=== PATIENT | male | born 1940 | race African-American/Black ===

== ENCOUNTER 2017-06-06 12:51 | Inpatient (IN) | payer MEDICAID, MEDICARE ==
[~2017-06-06] VITALS: Ht 185.4 cm; Wt 86.2 kg
[2017-06-06 13:04] VITALS: BP 125/74
[2017-06-06] MEDS ORDERED: MULTIVITAMINS1 EAC2 ORAL (13:07)
[2017-06-06] MEDS ORDERED: Sodium Chloride 500ML 500 ML IV ONE (13:15)
[2017-06-06 13:39] LABS: BASOPHILS % (AUTO) 0.6 % (0.0-2.0); EOSINOPHILS % (AUTO) 0.1 % (0.0-3.0); HEMATOCRIT 34.2 % (42.0-52.0); HEMOGLOBIN 11.1 G/DL (14.2-18.0); LYMPHOCYTES % (AUTO) 8.4 % (20.0-45.0); MEAN CORPUSCULAR VOLUME 85 FL (80-99); MONOCYTES % (AUTO) 8.2 % (1.0-10.0); NEUTROPHILS % (AUTO) 82.6 % (45.0-75.0); PLATELET COUNT 274 K/UL (150-450); RED BLOOD COUNT 4.05 M/UL (4.70-6.10); RED CELL DISTRIBUTION WIDTH 12.9 % (11.6-14.8); WHITE BLOOD COUNT 16.9 K/UL (4.8-10.8)
[2017-06-06 13:48] LABS: INR 1.1 (0.9-1.1)
[2017-06-06 13:54] LABS: ANION GAP 15 mmol/L (5-15); BLOOD UREA NITROGEN 159 mg/dL (7-18); CALCIUM 8.8 MG/DL (8.5-10.1); CARBON DIOXIDE 19 MMOL/L (21-32); CHLORIDE 101 MMOL/L (98-107); CREATININE 10.4 MG/DL (0.55-1.30); POTASSIUM 4.8 MMOL/L (3.5-5.1); SODIUM 135 MMOL/L (136-145)
[2017-06-06 14:06] LABS: ALANINE AMINOTRANSFERASE 38 U/L (12-78); ALBUMIN 2.5 G/DL (3.4-5.0); ALBUMIN/GLOBULIN RATIO 0.5 (1.0-2.7); ALKALINE PHOSPHATASE 78 U/L (46-116); ASPARTATE AMINO TRANSFERASE 24 U/L (15-37); BILIRUBIN,TOTAL 0.4 MG/DL (0.2-1.0); CKMB 4.9 NG/ML (0.0-3.6); CREATINE KINASE 48 U/L (26-308)
[2017-06-06 14:30] VITALS: BP 137/71
--- NOTE | 2017-06-06 15:13 | Emergency Room Report ---
History of Present Illness General Chief Complaint: Nosebleed Source: Medical Record Present Illness HPI 76-year-old male presents ED for evaluation. Patient [facility] from shelter facility with 2 episodes of epistaxis since yesterday. Patient states he gets "blood thinner injections". Denies any cough. Denies any fevers or chills. Denies any pain. No other aggravating relieving factors. Denies any other associated symptoms Allergies: Coded Allergies: No Known Allergies (Unverified , 06/06/17) Patient History Past Medical History: HTN Past Surgical History: none Pertinent Family History: none Social History: Denies: smoking, alcohol use, drug use Immunizations: UTD Reviewed Nursing Documentation: PMH: Agreed, PSxH: Agreed Nursing Documentation-PMH Past Medical History: No History, Except For Hx Hypertension: Yes Review of Systems All Other Systems: negative except mentioned in HPI Physical Exam Vital Signs Date Time Temp Pulse Resp B/P (MAP) Pulse Ox O2 Delivery O2 Flow Rate FiO2 06/06/17 12:57 98.4 87 16 129/74 98 Room Air Sp02 EP Interpretation: reviewed, normal General Appearance: no apparent distress, alert, GCS 15, non-toxic Head: normocephalic Eyes: bilateral eye normal inspection, bilateral eye PERRL ENT: hearing grossly normal, normal pharynx, no angioedema, normal voice, other - dried blood in nares Neck: normal inspection Respiratory: chest non-tender, lungs clear, normal breath sounds, speaking full sentences Cardiovascular #1: regular rate, rhythm, no edema Gastrointestinal: normal inspection Rectal: deferred Genitourinary: no CVA tenderness Musculoskeletal: normal inspection Neurologic: alert, oriented x3, responsive, motor strength/tone normal, sensory intact, speech normal Psychiatric: normal inspection Skin: normal inspection Lymphatic: normal inspection Medical Decision Making Diagnostic Impression: Primary Impression: Epistaxis Additional Impressions: Acute on chronic kidney failure Qualified Codes: N17.9 - Acute kidney failure, unspecified; N18.9 - Chronic kidney disease, unspecified Elevated troponin ER Course 81-year-old female presents to ED with epistaxis. no active bleeding Differential-anterior epistaxis, posterior epistaxis, coagulopathy Patient placed on stretcher. After initial history, physical exam reveals elderly male in no acute distress. There is no active bleeding at this time. Dried blood noted in both naris Lungs clear. Patient is on blood thinners therefore labs drawn Labs-no leukocytosis, hemoglobin/hematocrit stable, BUN/Cr elevated, coags normal, trop 1.168 Reviewed labs from senior living. In April his creatinine was lower. It appears that they were trending the troponin which was elevated but is higher today Patient denies any chest pain. EKG shows no acute ischemic changes Chest x-ray shows no acute process, cardiomegaly Patient will be admitted to Dr. Bull as per insurance Diagnoses-epistaxis, acute on chronic kidney injury, elevated troponin admitted to telemetry in serious condition Labs Test 06/06/17 13:20 White Blood Count 16.9 K/UL (4.8-10.8) Red Blood Count 4.05 M/UL (4.70-6.10) Hemoglobin 11.1 G/DL (14.2-18.0) Hematocrit 34.2 % (42.0-52.0) Mean Corpuscular Volume 85 FL (80-99) Mean Corpuscular Hemoglobin 27.3 PG (27.0-31.0) Mean Corpuscular Hemoglobin Concent 32.3 G/DL (32.0-36.0) Red Cell Distribution Width 12.9 % (11.6-14.8) Platelet Count 274 K/UL (150-450) Mean Platelet Volume 6.0 FL (6.5-10.1) Neutrophils (%) (Auto) 82.6 % (45.0-75.0) Lymphocytes (%) (Auto) 8.4 % (20.0-45.0) Monocytes (%) (Auto) 8.2 % (1.0-10.0) Eosinophils (%) (Auto) 0.1 % (0.0-3.0) Basophils (%) (Auto) 0.6 % (0.0-2.0) Prothrombin Time 12.0 SEC (9.30-11.50) Prothromb Time International Ratio 1.1 (0.9-1.1) Activated Partial Thromboplast Time 32 SEC (23-33) Sodium Level 135 MMOL/L (136-145) Potassium Level 4.8 MMOL/L (3.5-5.1) Chloride Level 101 MMOL/L (98-107) Carbon Dioxide Level 19 MMOL/L (21-32) Anion Gap 15 mmol/L (5-15) Blood Urea Nitrogen 159 mg/dL (7-18) Creatinine 10.4 MG/DL (0.55-1.30) Estimat Glomerular Filtration Rate mL/min (>60) Glucose Level 196 MG/DL (74-106) Calcium Level 8.8 MG/DL (8.5-10.1) Total Bilirubin 0.4 MG/DL (0.2-1.0) Aspartate Amino Transf (AST/SGOT) 24 U/L (15-37) Alanine Aminotransferase (ALT/SGPT) 38 U/L (12-78) Alkaline Phosphatase 78 U/L (46-116) Total Creatine Kinase 48 U/L (26-308) Creatine Kinase MB 4.9 NG/ML (0.0-3.6) Creatine Kinase MB Relative Index 10.2 Troponin I 1.168 ng/mL (0.000-0.056) Pro-B-Type Natriuretic Peptide 1448 pg/mL (0-125) Total Protein 7.6 G/DL (6.4-8.2) Albumin 2.5 G/DL (3.4-5.0) Globulin 5.1 g/dL Albumin/Globulin Ratio 0.5 (1.0-2.7) EKG Diagnostic Results Rate: normal Rhythm: NSR ST Segments: no acute changes ASA given to the pt in ED: No - patient having epistaxis. no chest pain Rhythm Strip Diag. Results EP Interpretation: yes Rhythm: NSR, no PVC's, no ectopy Chest X-Ray Diagnostic Results Chest X-Ray Diagnostic Results : Chest X-Ray Ordered: Yes # of Views/Limited/Complete: 1 View Indication: Other EP Interpretation: Yes Interpretation: no consolidation, no effusion, no pneumothorax, no acute cardiopulmonary disease Impression: Other - cardiomegaly. chf Electronically Signed by: Electronically signed by Angel Best MD Last Vital Signs Date Time Temp Pulse Resp B/P (MAP) Pulse Ox O2 Delivery O2 Flow Rate FiO2 06/06/17 14:30 97.9 74 19 137/71 95 Room Air Status: improved Disposition: ADMITTED INPATIENT Condition: Serious Referrals: Jesús Franklin MD (PCP) ANGEL BEST M.D. Jun 06, 2017 15:13
[2017-06-06] MEDS ORDERED: PLAVIX75 MG ORAL (17:08)
[2017-06-06] MEDS ORDERED: COREG3.125 MG ORAL (17:08)
[2017-06-06] MEDS ORDERED: ATORVASTATIN CA40 MG ORAL (17:08)
[2017-06-06] MEDS ORDERED: TAMSULOSIN HCL0.4 MG ORAL (17:08)
[2017-06-06] MEDS ORDERED: HYDRALAZINE HCL25 M1 ORAL (17:08)
--- NOTE | 2017-06-06 17:24 | Diagnostic Imaging Report ---
Indication: Reason For Exam: COUGH Technique: One view of the chest Comparison: none Findings: The heart is mildly enlarged. There is equivocal mild interstitial congestion, most notably on the left. The pleural spaces are clear. The aorta is tortuous and calcified Impression: Mild cardiomegaly. Equivocal mild interstitial congestion
[2017-06-06 20:00] VITALS: BP 130/69
[2017-06-06] MEDS: Tamsulosin 0.4mg cap ORAL SCH (20:44)
[2017-06-06] MEDS: HydrALAZINE 25mg tab ORAL SCH (21:13)
[2017-06-07] VITALS: BP 123/64
[2017-06-07 04:00] VITALS: BP 135/64
[2017-06-07] MEDS: HydrALAZINE 25mg tab ORAL SCH ×3 (06:04→21:48)
[2017-06-07 07:47] VITALS: BP 128/67
[2017-06-07 11:51] VITALS: BP 136/72
--- NOTE | 2017-06-07 11:52 | Diagnostic Imaging Report ---
Indication: Abnormal renal function tests Technique: Grayscale and duplex images of the kidneys, retroperitoneum, and bladder were obtained. Comparison: none Findings: Right kidney measures 11.4 cm in length. Left kidney measures 12.4 cm in length. Both kidneys demonstrate normal echogenicity. There is bilateral mild hydronephrosis. There are bilateral small renal cysts. No focal abnormality. Normal inferior vena cava. Bladder is distended, calculated prevoid volume 715 mL, postvoid volume 766 mL. Impression: Markedly distended bladder. Patient essentially unable to void Bilateral mild hydronephrosis, etiology not definitely demonstrated but quite possibly related to the above Incidental findings small bilateral renal cysts. This agrees with the preliminary interpretation provided overnight by [facility].
--- NOTE | 2017-06-07 14:01 | Nephrology Progress Note ---
Assessment/Plan Problem List: (1) Bilateral hydronephrosis (2) Renal cyst (3) Acute renal failure (4) Congestive heart failure (5) Urinary retention due to benign prostatic hyperplasia (6) HLD (hyperlipidemia) (7) HTN (hypertension) (8) Epistaxis (9) Elevated troponin (10) Acute on chronic kidney failure Plan H&P dictated - [id number] Subjective Constitutional: Denies: no symptoms, chills, diaphoresis, fever, malaise, weakness, other HEENT: Denies: no symptoms, eye pain, blurred vision, tearing, double vision, ear pain, ear discharge, nose pain, nose congestion, throat pain, throat swelling, mouth pain, mouth swelling, other Genitourinary: Reports: pain, other - retention Neurologic/Psychiatric: Denies: no symptoms, anxiety, depressed, emotional problems, headache, numbness, paresthesia, pre-existing deficit, seizure, tingling, tremors, weakness, other Objective Objective Last 24 Hour Vital Signs Date Time Temp Pulse Resp B/P (MAP) Pulse Ox O2 Delivery O2 Flow Rate FiO2 06/07/17 11:51 97.3 79 18 136/72 97 Nasal Cannula 2.0 06/07/17 07:57 85 128/67 06/07/17 07:47 97.7 85 18 128/67 97 Room Air 06/07/17 07:43 84 06/07/17 06:04 122/51 06/07/17 04:00 88 06/07/17 04:00 98.2 84 18 135/64 99 Nasal Cannula 06/07/17 00:00 99 06/07/17 00:00 99.9 90 26 123/64 93 Room Air 06/06/17 21:13 138/72 06/06/17 20:00 96 06/06/17 20:00 98.1 91 20 130/69 98 Room Air 06/06/17 16:48 84 06/06/17 15:00 16 137/91 96 Room Air 06/06/17 14:30 97.9 74 19 137/71 95 Room Air Intake and Output 06/06/17 06/07/17 19:00 07:00 Intake Total 740 ml 360 ml Output Total 400 ml Balance 740 ml -40 ml Intake Oral 240 ml 360 ml IV Total 500 ml Output Urine Total 400 ml # Voids 4 Height (Feet): 6 Height (Inches): 1.00 Weight (Pounds): 190 General Appearance: moderate distress EENT: normal ENT inspection Neck: normal alignment Cardiovascular: normal rate, regular rhythm, no JVD Respiratory/Chest: lungs clear, normal breath sounds Abdomen: soft, tender, hernia - left lower quadrant Genitourinary/Rectal: other - urinary retention Extremities: non-tender Neurologic: alert, oriented x 3, responsive, normal mood/affect Nathaly Smalls N.P. Jun 07, 2017 14:01
--- NOTE | 2017-06-07 14:18 | General Progress Note ---
Progress Note Progress Note ENT Initial consult Pt seen and evaluated Note dictated # [id number] No longer bleeding Antibiotic ointment to nose BID x 5 days-discussed with nurse. MARY JANE WILSON Jun 07, 2017 14:18
--- NOTE | 2017-06-07 14:21 | Infectious Diseases Prog Note ---
Assessment/Plan Problems: (1) Sepsis Assessment & Plan: with leukocytosis , due to the above, will send blood culture and start unasyn empirically (2) Epistaxis Assessment & Plan: due to anticoagulation, ENT is following, need nasal packing , will cover empirically with Unasyn (3) Elevated troponin Assessment & Plan: rule out ACS , recommend cardiology eval (4) Bilateral hydronephrosis Assessment & Plan: rule out prostate enlargement , recommend urology eval (5) Acute renal failure Assessment & Plan: due to the above, continue hydration, monitor renal function , nephrology is following Subjective Allergies: Coded Allergies: No Known Allergies (Unverified , 06/06/17) Objective Vital Signs Last 24 Hour Vital Signs Date Time Temp Pulse Resp B/P (MAP) Pulse Ox O2 Delivery O2 Flow Rate FiO2 06/07/17 11:51 97.3 79 18 136/72 97 Nasal Cannula 2.0 06/07/17 07:57 85 128/67 06/07/17 07:47 97.7 85 18 128/67 97 Room Air 06/07/17 07:43 84 06/07/17 06:04 122/51 06/07/17 04:00 88 06/07/17 04:00 98.2 84 18 135/64 99 Nasal Cannula 06/07/17 00:00 99 06/07/17 00:00 99.9 90 26 123/64 93 Room Air 06/06/17 21:13 138/72 06/06/17 20:00 96 06/06/17 20:00 98.1 91 20 130/69 98 Room Air 06/06/17 16:48 84 06/06/17 15:00 16 137/91 96 Room Air 06/06/17 14:30 97.9 74 19 137/71 95 Room Air Height (Feet): 6 Height (Inches): 1.00 Weight (Pounds): 190 Current Medications Medications (Trade) Dose Ordered Sig/Maureen Route PRN Reason Start Time Stop Time Status Last Admin Dose Admin Acetaminophen (Tylenol) 650 mg Q4H PRN ORAL Mild Pain/Temp > 100.5 06/06/17 17:45 07/06/17 17:44 Atorvastatin Calcium (Lipitor) 40 mg BEDTIME ORAL 06/06/17 21:00 07/06/17 20:59 12/19/17 20:44 Carvedilol (Coreg) 3.125 mg DAILY ORAL 06/07/17 09:00 07/07/17 08:59 06/07/17 07:57 Hydralazine HCl (Apresoline) 25 mg Q8HR ORAL 06/06/17 22:00 07/06/17 21:59 06/07/17 06:04 Tamsulosin HCl (Flomax) 0.4 mg BEDTIME ORAL 06/06/17 21:00 07/06/17 20:59 06/06/17 20:44 Molly Hernadez M.D. Jun 07, 2017 14:20
[2017-06-07] MEDS ORDERED: Eliquis 2.5mg tablet ORAL SCH (15:00)
--- NOTE | 2017-06-07 16:15 | Consultation ---
DATE OF CONSULTATION: 06/07/2017 PULMONARY CONSULTATION CONSULTING PHYSICIAN: Blair Delacruz M.D. HISTORY OF PRESENT ILLNESS: This is a 76-year-old long term resident, who was brought to the hospital with epistaxis. The patient states he has been getting anticoagulation as well. The patient denies any cough, fever, or chills. Denies any shortness of breath or pain. PAST MEDICAL HISTORY: Hypertension. PAST SURGICAL HISTORY: None reported. MEDICATIONS: List of home medications include Coreg, hydralazine, Flomax, Lipitor, and Tylenol. ALLERGIES: None reported. REVIEW OF SYSTEMS: Denies any headaches, hematemesis, melena, hematochezia, night sweats, or weight loss. PHYSICAL EXAMINATION: GENERAL: A [id number]. HEENT: Unremarkable. CHEST: Clear breath sounds bilaterally. HEART: Normal heart sounds. ABDOMEN: Soft. EXTREMITIES: No edema noted. LABORATORY AND DIAGNOSTIC DATA: Labs showed normal coags. White count 16.9 and hemoglobin 11. Chemistries are normal except for a creatinine of 10.4 and INR 1.1. The patient underwent imaging studies including a chest x-ray, which showed evidence of cardiomegaly and vascular congestion. IMPRESSION: 1. Pulmonary edema. 2. Vascular congestion. 3. Hypoxemia requiring nasal oxygen. 4. Epistaxis. DISCUSSION: Admitted to the hospital. The patient has vascular congestion, I suspect. He will benefit from diuresis versus dialysis. We will defer to Nephrology. Supplement oxygen via nasal cannula to counteract hypoxemia. We will continue to follow as night cleaner. Blair Delacruz M.D. DR: ELVI JOB#: [id number] CC:
[2017-06-07] MEDS: Ampicillin/Sulbactam Sod 3 GM in NS 110 ML IVPB SCH (16:17)
[2017-06-07] MEDS: Neosporin Oint 15gm TOPIC SCH (16:17)
[2017-06-07] MEDS ORDERED: Warfarin Sodium 5mg ORAL SCH (17:00)
[2017-06-07 17:01] VITALS: BP 137/86
--- NOTE | 2017-06-07 17:01 | Cardiology Report ---
APPROVED REPORT EKG Measurement Heart [id number] OR [id number] Sinus rhythm with premature atrial complexes Left axis deviation Minimal voltage criteria for LVH, may be normal variant Abnormal ECG
--- NOTE | 2017-06-07 17:53 | Anethesia Preoperative Eval ---
Anesthesia Pre-op PMH/ROS General Date of Evaluation: Jun 07, 2017 Time of Evaluation: 17:29 Anesthesiologist: Tere ASA Score: ASA 3 Mallampati Score Class I : Soft palate, uvula, fauces, pillars visible Class II: Soft palate, uvula, fauces visible Class III: Soft palate, base of uvula visible Class IV: Only hard plate visible Mallampati Classification: Class II Surgeon: Fifi Diagnosis: Sepsis, BPH Surgical Procedure: Cystoscopy, Suprapubic Catheter Anesthesia History: none Family History: no anesthesia problems Allergies: Coded Allergies: No Known Allergies (Unverified , 06/06/17) Medications: see eMAR Past Medical History Cardiovascular: Reports: HTN, [place] - Elevated Troponins, other - CHF, HL Gastrointestinal/Genitourinary: Reports: other - BPH, ARF, CRF, Hydronephrosis Hematology/Immune: Reports: other - Sepsis Anesthesia Pre-op Phys. Exam Physician Exam Last Vital Signs Date Time Temp Pulse Resp B/P (MAP) Pulse Ox O2 Delivery O2 Flow Rate FiO2 06/07/17 17:01 97.2 82 18 137/86 97 Nasal Cannula 2.0 Constitutional: NAD Neurologic: CN 2-12 intact Cardiovascular: RRR Respiratory: CTA Gastrointestinal: S/NT/ND Airway Exam Mallampati Score: Class II MO: limited ROM: limited Teeth: missing, intact Anesthesia Pre-op A/P Risk Assessment & Plan Assessment: ASA 3 Plan: GA Status Change Before Surgery: No Pre-Antibiotics Drug: Christoph Jackson MD Jun 07, 2017 17:53
--- NOTE | 2017-06-07 18:30 | Wound Care Consultation ---
Wound Assessment Wound Assessment : Wound Number: 1 Wound Present on Admission: Yes New Wound: No Status Change of Wound: No Wound Location Body Site Modif: left Wound Location Body Site: buttocks Wound Type: pressure ulcer Antonia Test: Does not Antonia Pressure Ulcer Stage: II Wound Thickness: Partial Thickness Wound Length: 3.0 Wound Width: 5.0 Wound Depth: 0.1 Percent of Wound [place]/Red: 100 Wound Drainage Description: Serosanguineous Wound Drainage Amount: Scant Wound Drainage Odor: None/Absent Tissue Surrounding Wound: Erythemic Wound General Appearance: Reddened, Draining Wound Comment #1 Left buttock open blister stage II pressure ulcer #2 Left and right foot dry flaky skin Recommendation -Local wound care per protocol -Keep clean and dry -Turn and reposition -Optimize nutrition -Offload both heels -Heel protector on both heels -Low air loss SPR mattress -Assess and f/u accordingly for any changes ELLEN MYERS RN Jun 07, 2017 18:29
--- NOTE | 2017-06-07 18:36 | Consultation ---
History of Present Illness General Date patient seen: Jun 07, 2017 Time patient seen: 12:55 Chief Complaint: Nosebleed Referring physician: Halie Reason for Consultation: bilateral hydro Present Illness HPI 76 yo male admitted for nose bleed workup as well as acute kidney injury. Renal ultrasound showed mild bilateral hydro, poor emptying of bladder. Patient states he voids fine, but no documented voids since admission to floor. Not in distress. Takes plavix for cardiac reasons? Allergies: Coded Allergies: No Known Allergies (Unverified , 06/06/17) Medication History Scheduled Atorvastatin Calcium* (Atorvastatin Calcium*), 40 MG ORAL BEDTIME, (Reported) Carvedilol (Coreg), 3.125 MG ORAL DAILY, (Reported) Clopidogrel Bisulfate* (Plavix*), 75 MG ORAL DAILY, (Reported) Hydralazine Hcl* (Hydralazine Hcl*), 25 MG ORAL EVERY 8 HOURS, (Reported) Multivitamins* (Multivitamins*), 1 TAB ORAL DAILY, (Reported) Tamsulosin Hcl (Tamsulosin Hcl*), 0.4 MG ORAL BEDTIME, (Reported) Patient History Limited by: age, medical condition History Provided By: Medical Record Healthcare decision maker Resuscitation status Advanced Directive on File Past Medical/Surgical History Past Medical/Surgical History: (1) HTN (hypertension) (2) HLD (hyperlipidemia) (3) Acute renal failure Review of Systems All Other Systems: negative except mentioned in HPI Physical Exam General Appearance: alert Neck: supple Abdomen: non tender, soft Genitourinary/Rectal: normal genital exam Neurologic: alert, oriented x 3 Last 24 Hour Vital Signs Date Time Temp Pulse Resp B/P (MAP) Pulse Ox O2 Delivery O2 Flow Rate FiO2 06/07/17 17:01 97.2 82 18 137/86 97 Nasal Cannula 2.0 06/07/17 15:10 75 06/07/17 14:30 136/72 06/07/17 11:51 97.3 79 18 136/72 97 Nasal Cannula 2.0 06/07/17 11:45 77 06/07/17 07:57 85 128/67 06/07/17 07:47 97.7 85 18 128/67 97 Room Air 06/07/17 07:43 84 06/07/17 06:04 122/51 06/07/17 04:00 88 06/07/17 04:00 98.2 84 18 135/64 99 Nasal Cannula 06/07/17 00:00 99 06/07/17 00:00 99.9 90 26 123/64 93 Room Air 06/06/17 21:13 138/72 06/06/17 20:00 96 06/06/17 20:00 98.1 91 20 130/69 98 Room Air Intake and Output 06/06/17 06/07/17 19:00 07:00 Intake Total 740 ml 360 ml Output Total 400 ml Balance 740 ml -40 ml Intake Oral 240 ml 360 ml IV Total 500 ml Output Urine Total 400 ml # Voids 4 Height (Feet): 6 Height (Inches): 1.00 Weight (Pounds): 190 Medications Current Medications Medications (Trade) Dose Ordered Sig/Maureen Route PRN Reason Start Time Stop Time Status Last Admin Dose Admin Acetaminophen (Tylenol) 650 mg Q4H PRN ORAL Mild Pain/Temp > 100.5 06/06/17 17:45 07/06/17 17:44 Ampicillin Sodium/ Sulbactam Sodium 3 gm/Sodium Chloride 110 ml @ 220 mls/hr Q24H IVPB 06/07/17 17:00 06/14/17 16:59 06/07/17 16:17 Atorvastatin Calcium (Lipitor) 40 mg BEDTIME ORAL 06/06/17 21:00 07/06/17 20:59 06/06/17 20:44 Carvedilol (Coreg) 3.125 mg DAILY ORAL 06/07/17 09:00 07/07/17 08:59 06/07/17 07:57 Hydralazine HCl (Apresoline) 25 mg Q8HR ORAL 06/06/17 22:00 07/06/17 21:59 06/07/17 14:30 Neomycin/ Polymyxin/ Bacitracin (Neosporin Oint 15gm) 1 applic TWICE A DAY TOPIC 06/07/17 18:00 06/12/17 09:01 06/07/17 16:17 Tamsulosin HCl (Flomax) 0.4 mg BEDTIME ORAL 06/06/17 21:00 07/06/17 20:59 06/06/17 20:44 Objective Narrative Renal ultrasound: mild bilateral hydro, high PVR Attempted to pass 16 [place] straight, 14 [place] coude and 20 [place] coude, unsuccessfully. URethral trauam resulted in blood from meatus. Given patient still has plavix in system, aborted further intervention. Assessment/Plan Status: stable Assessment/Plan 76 yo male with likely retention mediated renal failure. 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 Patient states he has had allen catheters 7 times in his life. Given patient still has plavix on board, recommend cystoscopy to evaluate and treat potential stricture vs. SP tube placement under anesthesia in controlled environment. Please hold any anti- coagulation till after procedure. 1. NPO p MN 2. or tomorrow for cysto, possible dilation of urethral stricture vs. suprapubic tube placement. Van Calix M.D. Jun 07, 2017 18:36
[2017-06-07 20:00] VITALS: BP 124/73
--- NOTE | 2017-06-07 20:53 | Cardiology Progress Note ---
Assessment/Plan Assessment/Plan The patient is seen and examined, full consult note is dictated. Objective Last 24 Hour Vital Signs Date Time Temp Pulse Resp B/P (MAP) Pulse Ox O2 Delivery O2 Flow Rate FiO2 06/07/17 20:50 Nasal Cannula 2.0 28 06/07/17 20:49 97 Nasal Cannula 2.0 28 06/07/17 17:01 97.2 82 18 137/86 97 Nasal Cannula 2.0 06/07/17 15:10 75 06/07/17 14:30 136/72 06/07/17 11:51 97.3 79 18 136/72 97 Nasal Cannula 2.0 06/07/17 11:45 77 06/07/17 07:57 85 128/67 06/07/17 07:47 97.7 85 18 128/67 97 Room Air 06/07/17 07:43 84 06/07/17 06:04 122/51 06/07/17 04:00 88 06/07/17 04:00 98.2 84 18 135/64 99 Nasal Cannula 06/07/17 00:00 99 06/07/17 00:00 99.9 90 26 123/64 93 Room Air 06/06/17 21:13 138/72 Intake and Output 06/06/17 06/07/17 19:00 07:00 Intake Total 740 ml 360 ml Output Total 400 ml Balance 740 ml -40 ml Intake Oral 240 ml 360 ml IV Total 500 ml Output Urine Total 400 ml # Voids 4 RENETTA WELDON Jun 07, 2017 20:53
[2017-06-07] MEDS: Tamsulosin 0.4mg cap ORAL SCH (21:47)
[2017-06-07] MEDS: Vitamin A&D Oint 2oz Tube TOPIC SCH (21:47)
--- NOTE | 2017-06-07 23:00 | Consultation ---
DATE OF CONSULTATION: INFECTIOUS DISEASE CONSULTATION CONSULTING PHYSICIAN: Molly Hernadez M.D. REQUESTING PHYSICIAN: Moris Bull M.D. REASON FOR CONSULTATION: Sepsis, leukocytosis, possible pyelonephritis due to urinary retention and hydronephrosis, recommendation for antibiotics treatment. HISTORY OF PRESENT ILLNESS: The patient is a 76-year-old male with past medical history of hypertension, urinary retention, and benign prostatic hypertrophy, who required multiple Garcia catheter placement in the past at [facility], presented to the hospital with difficulty urination, urine retention, and nose bleeding. The patient was found to have urine retention with inability to place Garcia catheter in the emergency room. Urologist was consulted for further evaluation. The patient had multiple attempts to place Garcia catheter was unsuccessful. At the bedside, the patient had extensive workup including CBC, which showed significant leukocytosis, possibly due to pyelonephritis and urinary retention. So, Infectious Disease consultation was requested for further evaluation and management of his sepsis and possible pyelonephritis. The patient denied any abdominal pain, suprapubic tenderness, fever, or chills. No nausea, vomiting, or diarrhea. No cough or phlegm. No headache or upper respiratory infection. REVIEW OF SYSTEMS: A 14-point of system reviewed were all negative apart from the one I mentioned above in my H and P. PAST MEDICAL HISTORY: Significant for hypertension, urinary retention, benign prostatic hypertrophy. PAST SURGICAL HISTORY: Negative. MEDICATIONS: He was started on Neosporin ointment topical by ENT. He is also on Tylenol, Lipitor, Flomax, and Coreg. ALLERGIES: No known drug allergy. SOCIAL HISTORY: The [facility]. Denied any drugs, tobacco, or alcohol abuse. FAMILY HISTORY: Noncontributory. PHYSICAL EXAMINATION: VITAL SIGNS: Temperature 97.3, pulse 79, respiration 18, blood pressure 136/72, and saturation 97% on two liters nasal cannula. GENERAL: An elderly male, lying in bed, awake, alert, oriented, not in distress. HEENT: Normocephalic, atraumatic. Pupils are reactive to light. Moist oral mucosa. Nares are dry. No evidence of bleeding actively at this point. Moist oral mucosa. No exudate or thrush. NECK: Supple. No lymphadenopathy. CARDIOVASCULAR: Regular rate and rhythm. No murmur. No gallop. LUNGS: Clear bilaterally. Diminished breathing sounds at the bases. No wheezing or rhonchi. ABDOMEN: Soft, nontender, nondistended. Positive bowel sounds. No hepatosplenomegaly or ascites. No rebound. EXTREMITIES: No edema or cyanosis. SKIN: No rash or hives. LABORATORY AND DIAGNOSTIC DATA: Labs showed white count of 16.9, hemoglobin of 11.1, platelet count of 274, BUN of 159, creatinine of 10.4. AST of 24, ALT of 38. Troponin of 1.168. Imaging, chest x-ray showed mild cardiomegaly, equivocal mild interstitial congestion. Renal ultrasound showed markedly distended bladder, bilateral mild hydronephrosis, etiology not definitely demonstrated, but quiet possibly related to the above. Incidental finding, small bilateral renal cysts. Venous Doppler showed acute DVT in the common femoral vein. ASSESSMENT AND RECOMMENDATION: 1. Sepsis with leukocytosis, suspect due to urinary retention and possible pyelonephritis. We will start the patient empirically on Unasyn IV. Send urine culture and blood culture. 2. Bilateral hydronephrosis due to bladder outlet obstruction, suspect prostate enlargement or urethral stricture. Recommend Garcia placement or nephrostomy pending Urology evaluation to relieve his obstruction and to eliminate the source of infection. 3. Elevated troponin, rule out acute coronary syndrome. Recommend Cardiology evaluation and management. 4. Acute renal failure due to obstructive uropathy. Continue hydration and monitor renal function and urine output. Nephrology team is following. Thank you for the consultation. ID will continue to follow. Molly Hernadez M.D. DR: Arleth JOB#: [id number] CC:
[2017-06-08] VITALS (18 sets, daily range): BP systolic 85–164; BP diastolic 57–95
--- NOTE | 2017-06-08 | Consultation ---
DATE OF CONSULTATION: 06/07/2017 HEAD AND NECK SURGERY/FACIAL PLASTICS REQUESTING PHYSICIAN: Moris Bull M.D. CONSULTING PHYSICIAN: Chris Serra M.D. INDICATION FOR CONSULTATION: This is a 76-year-old male with a bloody nose over the last few days, admitted with elevated troponin and chronic renal failure. I did get a call late yesterday afternoon and when I responded, they said he was not bleeding, I could see him tomorrow, which is today and I am doing that. PAST MEDICAL HISTORY: Significant for congestive heart failure, acute renal failure, renal cyst, hypertension, hyperlipidemia, bilateral hydronephrosis, and urinary retention due to benign prostatic hypertrophy. MEDICATIONS: Include Coumadin, Eliquis, Coreg, Apresoline, Flomax, Lipitor, Tylenol, and levofloxacin. PHYSICAL EXAMINATION: VITAL SIGNS: The patient is 185.42 cm, 86.183 kg, and BMI 25.1 kg/m2. GENERAL: The patient is lying in bed, awake, alert, and stable. Able to move and sit up without difficulty. HEENT: Ears, positive light reflex. Normal canal. Mouth, normal. Nose, he has a nasal cannula in it and some dried scab on the right, but no active bleeding. The patient states he has had no bleeding since yesterday afternoon. NECK: No palpable masses. ASSESSMENT: 1. Epistaxis, controlled. 2. High troponin, workup underway. 3. Acute renal failure. PLAN: Antibiotic ointment to the nose. I discussed this with the nurse twice a day, especially when it is dry outside or using the dried nasal cannula air. Thank you very much for asking my opinion in the care and treatment of this patient. Chris Serra M.D. DR: Guille JOB#: [id number] CC:
--- NOTE | 2017-06-08 01:15 | HX and Phyl Repo 2 Sig ---
DATE OF ADMISSION: 06/06/2017 INTERNAL MEDICINE HISTORY AND PHYSICAL HISTORY OF PRESENT ILLNESS: The patient is a 76-year-old male with a past medical history significant for hypertension, BPH who presented to the emergency room with epistaxis. According to the patient, he has been bleeding for a couple of days. He stated that he asked his brother who came to visit him at home to take him to the emergency room. He stated that two months ago, he was admitted to [facility] for difficulty urination. He stated that he had a Garcia catheter put in and was subsequently discharged. He does not remember if he has seen any urologist or not. Denies chest pain. No nausea. No vomiting. No abdominal pain. He stated that he has had hernia, which causes pain intermittently on the left lower quadrant. PAST MEDICAL HISTORY: Significant for urinary retention, hypertension, and BPH. PAST SURGICAL HISTORY: None. HOME MEDICATIONS: Atorvastatin 40 mg p.o. daily, carvedilol 3.125 mg p.o. daily, Plavix 75 mg p.o. daily, hydralazine 25 mg p.o. q.8 h., multivitamin tablet one p.o. daily, and Flomax 0.4 mg p.o. nightly. ALLERGIES: He has no known allergies. SOCIAL HISTORY: He states that he lives at home. Denies any drug use. No alcohol use and no illicit drug use. REVIEW OF SYSTEMS: Negative except as mentioned in the HPI. PHYSICAL EXAMINATION: GENERAL: This is a 76-year-old male, moderately distressed due to urinary retention. VITAL SIGNS: Blood pressure of 136/72, heart rate is 79, respiratory rate is 18, temperature is 97.3 degrees, O2 saturation is 97% on 2 liters. HEENT: Head is normocephalic and atraumatic with moist mucous membranes. Pupils are equal, round, reactive to light and accommodation. NECK: Supple. No JVD noted. LUNGS: Clear to auscultation bilaterally. No crackles. No wheezing. CARDIOVASCULAR: Regular rate and rhythm. No murmurs. No gallops. ABDOMEN: Soft. Tenderness noted on the left lower quadrant, most likely due to hernia. EXTREMITIES: Dry. No edema. No cyanosis. No clubbing NEUROLOGIC: The patient is awake, alert, and oriented x2 with no focal deficits. LABORATORY DATA: CBC, white count 16.9, hemoglobin 11.1, hematocrit 34.7, and platelet count of 274. BMP, sodium 135, potassium 4.8, chloride 101, bicarbonate 19, BUN 159, creatinine 10.4, and blood glucose of 196. Troponin is elevated at 1.168. BNP 1448. Admission PT 12.0, INR 1.1, and aPTT is 32. RADIOLOGIC FINDING: Renal ultrasound findings, right kidney measures 11.4 cm in length. Left kidney measures 12.4 cm in length. Both kidneys demonstrate normal echogenicity. There is bilateral mild hydronephrosis. There are bilateral small renal cysts. No focal abnormality. Normal inferior vena cava. Bladder is distended. Calculated prevoid volume is 715 mL, postvoid volume 766 mL. Impression, markedly distended bladder. The patient is essentially unable to void. Bilateral mild hydronephrosis, etiology not definitely demonstrated, but quite possibly related to the above. Incidental finding of small bilateral renal cysts. Chest x-ray findings, the heart is mildly enlarged. There is equivocal mild interstitial congestion most notably on the left. The pleural spaces are clear. The aorta is tortuous and calcified. Impression is mild cardiomegaly. Equivocal mild interstitial congestion. ASSESSMENTS: 1. Bilateral hydronephrosis. 2. Elevated troponin. 3. Congestive heart failure. 4. Urinary retention. 5. Hyperlipidemia. 6. Renal cysts. 7. Hypertension. 8. Acute renal failure PLAN: The patient has been seen by Dr. Calix, the urologist, and scheduled for surgery tomorrow. We will follow up postprocedure. Also Dr. More had been notified regarding the findings of . Infectious Disease, Dr. Hernadez, has been notified of this patient as well. Dr. Menchaca is the pneumatic system conveyor operator. We will follow up with recommendations of this consults. We will monitor vitals. Monitor intake and output. Monitor electrolytes and correct as needed. Pain management as needed. We will continue home medications except Plavix. The patient is scheduled for procedure tomorrow. We will monitor the patient's overall response to treatment. Moris Bull M.D. Nathaly Smalls DR: Shirley JOB#: [id number] CC: DONELL
[2017-06-08] MEDS: Oxybutynin 5mg tab ORAL SCH ×4 (05:35→22:22)
[2017-06-08] MEDS: HydrALAZINE 25mg tab ORAL SCH ×3 (05:36→22:21)
[2017-06-08 06:59] LABS: INR 1.2 (0.9-1.1)
[2017-06-08 07:08] LABS: HEMATOCRIT 32.4 % (42.0-52.0); HEMOGLOBIN 10.6 G/DL (14.2-18.0); MEAN CORPUSCULAR VOLUME 86 FL (80-99); PLATELET COUNT 236 K/UL (150-450); RED BLOOD COUNT 3.76 M/UL (4.70-6.10); RED CELL DISTRIBUTION WIDTH 13.3 % (11.6-14.8); WHITE BLOOD COUNT 14.2 K/UL (4.8-10.8)
[2017-06-08 07:14] LABS: ANION GAP 20 mmol/L (5-15); BLOOD UREA NITROGEN 162 mg/dL (7-18); CALCIUM 8.9 MG/DL (8.5-10.1); CARBON DIOXIDE 15 MMOL/L (21-32); CHLORIDE 99 MMOL/L (98-107); CREATININE 10.9 MG/DL (0.55-1.30); POTASSIUM 5.8 MMOL/L (3.5-5.1); SODIUM 134 MMOL/L (136-145)
--- NOTE | 2017-06-08 08:15 | Consultation ---
DATE OF CONSULTATION: 06/07/2017 HEMATOLOGY/ONCOLOGY CONSULTATION CONSULTING PHYSICIAN: Yossi More M.D. REQUESTING PHYSICIAN: Moris Bull M.D. REASON FOR CONSULTATION: Evaluation of DVT. IDENTIFICATION DATA: Dear Dr. Moris Bull: The patient is a pleasant 76-year-old male with a past medical history significant for hyperlipidemia, hypertension, BPH, at this time presents with nasal bleed. Renal ultrasound showed mild bilateral hydronephrosis, poor emptying of the bladder, voiding at this time, has been taking Plavix, which is unknown reason for that. He has been taking anticoagulation as well. Duplex of lower extremity was obtained and the patient noted to have acute thrombus in the common femoral vein on the right leg. Hematology Service consulted for further evaluation and treatment. PAST MEDICAL HISTORY: Hypertension. PAST SURGICAL HISTORY: None noted. MEDICATIONS: Coreg, hydralazine, Flomax, Lipitor, and Tylenol. ALLERGIES: No known drug allergies. REVIEW OF SYSTEMS: CONSTITUTIONAL: No fevers, chills, or night sweats. SKIN: No rashes, bumps, or itching. HEENT: No headache, hearing or vision changes. BREASTS: No lumps, pain, or discharge. PULMONARY: No cough, sputum, or shortness of breath. GASTROINTESTINAL: No nausea, vomiting, or diarrhea. GENITOURINARY: No dysuria, frequency, or urgency. MUSCULOSKELETAL: No joint swelling, muscle pain, or trauma. PHYSICAL EXAMINATION: GENERAL: No acute distress. PULMONARY: Decreased breath sounds. CARDIOVASCULAR: Regular rate. No S3 or S4. ABDOMEN: Soft, nontender, and nondistended. EXTREMITIES: 1+ edema. LABORATORY AND DIAGNOSTIC DATA: WBC 16.9, hemoglobin 11.1, hematocrit 34, and platelet count 274,000. BUN of and creatinine . Troponin 1.16. INR 1.1. ASSESSMENT AND RECOMMENDATIONS: 1. Deep venous thrombosis, which is extensive, of the right lower extremity. At this time, the patient's epistaxis has since resolved. The patient is a dialysis patient. Consider use of apixaban. At this time, I am going to hold Coumadin because of bleeding bleeding noted when the urologist attempted catheter placement. Consider to restart in the next several days. 2. Anemia secondary to hematuria. The patient is to go to the operating room for cystoscopy, possible dilatation, suprapubic tube placement. Consider to start anticoagulation after procedure. 3. History of Garcia catheter . 4. Acute kidney injury, end-stage renal disease, on dialysis. 5. Sepsis. Continue antibiotics with Unasyn. 6. Epistaxis due to anticoagulation. nasal packing in place. 7. Elevated troponin. Cardiology Service to evaluate. I appreciate the consultation. Yossi More M.D. DR: Gaudencio JOB#: [id number] CC:
--- NOTE | 2017-06-08 08:19 | Pulmonology Progress Note ---
Assessment/Plan Assessment/Plan IMPRESSION: 1. Pulmonary edema. 2. Vascular congestion. 3. Hypoxemia requiring nasal oxygen. 4. Epistaxis. DISCUSSION: Continue diuresis versus dialysis. Will will defer to Nephrology. Supplement oxygen via nasal cannula to correct hypoxemia. I will continue to follow as food expeditor. Subjective Interval Events: Doing better Constitutional: Reports: no symptoms HEENT: Repors: no symptoms Respiratory: Reports: no symptoms Cardiovascular: Reports: no symptoms Gastrointestinal/Abdominal: Reports: no symptoms Allergies: Coded Allergies: No Known Allergies (Unverified , 06/06/17) Objective Last 24 Hour Vital Signs Date Time Temp Pulse Resp B/P (MAP) Pulse Ox O2 Delivery O2 Flow Rate FiO2 06/08/17 05:36 127/73 06/08/17 04:00 90 06/08/17 04:00 99.0 87 20 124/73 97 Nasal Cannula 06/08/17 02:12 99.7 06/08/17 00:00 100.9 91 20 148/78 98 Nasal Cannula 06/08/17 00:00 93 06/07/17 21:48 132/78 06/07/17 20:50 Nasal Cannula 2.0 28 06/07/17 20:49 97 Nasal Cannula 2.0 28 06/07/17 20:00 81 06/07/17 20:00 98.2 87 20 124/73 96 Nasal Cannula 06/07/17 17:01 97.2 82 18 137/86 97 Nasal Cannula 2.0 06/07/17 15:10 75 06/07/17 14:30 136/72 06/07/17 11:51 97.3 79 18 136/72 97 Nasal Cannula 2.0 06/07/17 11:45 77 Intake and Output 06/07/17 06/08/17 19:00 07:00 Intake Total 470 ml 100 ml Output Total 75 ml Balance 470 ml 25 ml Intake Oral 360 ml 100 ml IV Total 110 ml Output Urine Total 75 ml # Voids 3 # Bowel Movements 1 General Appearance: no acute distress HEENT: normocephalic Respiratory/Chest: chest wall non-tender, lungs clear Cardiovascular: normal peripheral pulses, normal rate Laboratory Tests 06/07/17 21:38: Troponin I 0.443H 06/08/17 05:40: White Blood Count 14.2H, Red Blood Count 3.76L, Hemoglobin 10.6L, Hematocrit 32.4L, Mean Corpuscular Volume 86, Mean Corpuscular Hemoglobin 28.2, Mean Corpuscular Hemoglobin Concent 32.7, Red Cell Distribution Width 13.3, Platelet Count 236, Mean Platelet Volume 6.7, Neutrophils (%) (Auto) , Lymphocytes (%) ( Auto) , Monocytes (%) (Auto) , Eosinophils (%) (Auto) , Basophils (%) (Auto) , Neutrophils % (Manual) [Pending], Lymphocytes % (Manual) [Pending], Platelet Estimate [Pending], Platelet Morphology [Pending], Prothrombin Time 12.3H, Prothromb Time International Ratio 1.2H, Activated Partial Thromboplast Time 35H , Sodium Level 134L, Potassium Level 5.8H, Chloride Level 99, Carbon Dioxide Level 15L, Anion Gap 20H, Blood Urea Nitrogen 162H, Creatinine 10.9H, Estimat Glomerular Filtration Rate , Glucose Level 164H, Calcium Level 8.9 Current Medications Medications (Trade) Dose Ordered Sig/Maureen Route PRN Reason Start Time Stop Time Status Last Admin Dose Admin Acetaminophen (Tylenol) 650 mg Q4H PRN ORAL Mild Pain/Temp > 100.5 06/06/17 17:45 07/06/17 17:44 06/08/17 01:13 Ampicillin Sodium/ Sulbactam Sodium 3 gm/Sodium Chloride 110 ml @ 220 mls/hr Q24H IVPB 06/07/17 17:00 06/14/17 16:59 06/07/17 16:17 Atorvastatin Calcium (Lipitor) 40 mg BEDTIME ORAL 06/06/17 21:00 07/06/17 20:59 06/07/17 21:47 Carvedilol (Coreg) 3.125 mg DAILY ORAL 06/07/17 09:00 07/07/17 08:59 06/07/17 07:57 Hydralazine HCl (Apresoline) 25 mg Q8HR ORAL 06/06/17 22:00 07/06/17 21:59 06/08/17 05:36 Neomycin/ Polymyxin/ Bacitracin (Neosporin Oint 15gm) 1 applic TWICE A DAY TOPIC 06/07/17 18:00 06/12/17 09:01 06/07/17 16:17 Oxybutynin Chloride (Ditropan) 5 mg Q8HR ORAL 06/08/17 00:00 07/08/17 00:00 06/08/17 05:35 Tamsulosin HCl (Flomax) 0.4 mg BEDTIME ORAL 06/06/17 21:00 07/06/17 20:59 06/07/17 21:47 Vitamin A/Vitamin D (A & D Oint) 1 applic EVERY 12 HOURS TOPIC 06/07/17 21:00 07/07/17 20:59 06/07/17 21:47 Blair Delacruz MD Jun 08, 2017 08:19
[2017-06-08] MEDS: Vitamin A&D Oint 2oz Tube TOPIC SCH ×2 (09:33→22:20)
[2017-06-08] MEDS: Neosporin Oint 15gm TOPIC SCH ×2 (09:33→17:23)
[2017-06-08] MEDS ORDERED: Heparin 2000 units/Ns 1000ml 1,000 ML ONE (10:53)
[2017-06-08] MEDS ORDERED: Heparin Sod 1000 units/ml 10ml ONE (10:53)
[2017-06-08] MEDS ORDERED: Lidocaine 1% Plain 30 ml INJ ONE (10:53)
--- NOTE | 2017-06-08 11:29 | Pre-Procedure Note/Attestation ---
Pre-Procedure Note/Attestation Complete Prior to Procedure Planned Procedure: not applicable Procedure Narrative: Temporary dialysis catheter Indications for Procedure Pre-Operative Diagnosis: renal failure Attestation I attest that I discussed the nature of the procedure; its benefits; risks and complications; and alternatives (and the risks and benefits of such alternatives ), prior to the procedure, with the patient (or the patient's legal representative phlebotomy services). I attest that, if there was a reasonable possibility of needing a blood transfusion, the patient (or the patient's legal representative phlebotomy services) was given the [facility] standardized written summary, pursuant to the [place] Blood Safety Act ([place] Health and Safety Code # 1645, as amended). I attest that I re-evaluated the patient just prior to the surgery and that there has been no change in the patient's H&P, except as documented below: YASSINE MOORE M.D. Jun 08, 2017 11:29
[2017-06-08] MEDS ORDERED: LR 1000ml 1,000 ML IVLG SCH (13:07)
--- NOTE | 2017-06-08 13:07 | Immediate Post-Op Evaluation ---
Immediate Post-Op Evalulation Immediate Post-Op Evalulation Procedure: Cystoscopy Date of Evaluation: Jun 08, 2017 Time of Evaluation: 15:54 IV Fluids: 150 Blood Products: 0 Estimated Blood Loss: min Urinary Output: 0 Blood Pressure Systolic: 129 Blood Pressure Diastolic: 70 Pulse Rate: 77 Respiratory Rate: 16 O2 Sat by Pulse Oximetry: 96 Temperature (Fahrenheit): 97.8 Pain Score (1-10): 0 Nausea: No Vomiting: No Complications 0 Patient Status: awake, reacts, patent, none Hydration Status: adequate Drug: Ancef 2g Given Within 1 Hr of Incision: Yes Time Given: 15:00 RYAN MARTINEZ M.D. Jun 08, 2017 13:07
--- NOTE | 2017-06-08 13:10 | Pre-Procedure Note/Attestation ---
Pre-Procedure Note/Attestation Complete Prior to Procedure Planned Procedure: not applicable Procedure Narrative: cystoscopy, possible stricture dilation, possible SP tube placement Indications for Procedure Pre-Operative Diagnosis: renal failure, urinary retention, bilateral hydronephrosis Attestation I attest that I discussed the nature of the procedure; its benefits; risks and complications; and alternatives (and the risks and benefits of such alternatives ), prior to the procedure, with the patient (or the patient's legal workforce services representative). I attest that, if there was a reasonable possibility of needing a blood transfusion, the patient (or the patient's legal workforce services representative) was given the [facility] standardized written summary, pursuant to the [place] Blood Safety Act ([place] Health and Safety Code # 1645, as amended). I attest that I re-evaluated the patient just prior to the surgery and that there has been no change in the patient's H&P, except as documented below: Patient is high risk due to concurrent cardiac issues. His renal failure is highly likely due to inability to void. To avoid further risk of renal damage we need to proceed as bedside manipulation has failed in getting patient's bladder drained appropriately. Van Calix M.D. Jun 08, 2017 13:10
[2017-06-08] MEDS ORDERED: fentaNYL 100 mcg/2 mL IV PRN (13:15)
[2017-06-08] MEDS ORDERED: DiphenhydrAMINE 50mg/ml Inj IVP PRN (13:15)
[2017-06-08] MEDS ORDERED: Sodium Polystyrene Sulfonate 15gm Powder ORAL ONE (13:30)
[2017-06-08] MEDS ORDERED: Calcium Gluconate 1gm/10ml vial ONE (14:00)
[2017-06-08] MEDS ORDERED: Propofol 200mg/20ml IV ONE (14:00)
[2017-06-08 14:32] LABS: ANION GAP 18 mmol/L (5-15); BLOOD UREA NITROGEN 161 mg/dL (7-18); CALCIUM 8.7 MG/DL (8.5-10.1); CARBON DIOXIDE 17 MMOL/L (21-32); CHLORIDE 100 MMOL/L (98-107); POTASSIUM 5.2 MMOL/L (3.5-5.1); SODIUM 135 MMOL/L (136-145)
[2017-06-08] MEDS ORDERED: Bacitracin Oint 15gm Tube TOPIC ONE (14:39)
--- NOTE | 2017-06-08 14:43 | Infectious Diseases Prog Note ---
Assessment/Plan Problems: (1) Epistaxis Assessment & Plan: due to anticoagulation, ENT is following, will cover empirically with Unasyn (2) Elevated troponin Assessment & Plan: rule out ACS , recommend cardiology eval (3) Sepsis Assessment & Plan: with leukocytosis , due to possible pyelonephritis , await blood and urine culture, continue unasyn empirically (4) Bilateral hydronephrosis Assessment & Plan: rule out prostate enlargement , urology eval is in progress (5) Acute renal failure Assessment & Plan: due to the above, continue hydration, monitor renal function , nephrology is following Subjective Constitutional: Reports: no symptoms HEENT: Reports: no symptoms Respiratory: Reports: no symptoms Breasts: Reports: no symptoms Cardiovascular: Reports: no symptoms Gastrointestinal/Abdominal: Reports: no symptoms Genitourinary: Reports: other - retension Neurologic: Reports: no symptoms Psychiatric: Reports: no symptoms Skin: Reports: no symptoms Endocrine: Reports: no symptoms Hematologic: Reports: no symptoms Musculoskeletal: Reports: no symptoms Allergies: Coded Allergies: No Known Allergies (Unverified , 06/06/17) Objective Vital Signs Last 24 Hour Vital Signs Date Time Temp Pulse Resp B/P (MAP) Pulse Ox O2 Delivery O2 Flow Rate FiO2 06/08/17 11:30 79 18 135/80 100 Nasal Cannula 2.0 06/08/17 11:25 77 18 130/81 99 Nasal Cannula 2.0 06/08/17 11:20 81 24 128/57 100 Nasal Cannula 2.0 06/08/17 10:58 80 17 2.0 06/08/17 09:02 95 136/79 06/08/17 08:00 90 06/08/17 08:00 98.1 95 22 136/79 95 Nasal Cannula 06/08/17 05:36 127/73 06/08/17 04:00 90 06/08/17 04:00 99.0 87 20 124/73 97 Nasal Cannula 06/08/17 02:12 99.7 06/08/17 00:00 100.9 91 20 148/78 98 Nasal Cannula 06/08/17 00:00 93 06/07/17 21:48 132/78 06/07/17 20:50 Nasal Cannula 2.0 28 06/07/17 20:49 97 Nasal Cannula 2.0 06/07/17 20:00 81 06/07/17 20:00 98.2 87 20 124/73 96 Nasal Cannula 06/07/17 17:01 97.2 82 18 137/86 97 Nasal Cannula 2.0 06/07/17 15:10 75 Height (Feet): 6 Height (Inches): 1.00 Weight (Pounds): 190 General Appearance: WD/WN, no acute distress HEENT: normocephalic, atraumatic, anicteric, mucous membranes moist, PERRL Respiratory/Chest: chest wall non-tender, lungs clear, normal breath sounds, no respiratory distress, no accessory muscle use Cardiovascular: normal peripheral pulses, normal rate, regular rhythm, no gallop/murmur, no JVD Abdomen: normal bowel sounds, soft, non tender, no organomegaly, non distended , no mass, no scars Extremities: no cyanosis, no clubbing Skin: no rash, no lesions, no ulcers Neurologic/Psychiatric: alert, oriented x 3 Microbiology Date/Time Source Procedure Growth Status 06/06/17 16:00 Nasal Nares MRSA Culture - Final NO METHICILLIN RESISTANT STAPH AUREUS... Complete 06/07/17 05:30 Buttock Left Gram Stain Pending Resulted 06/07/17 05:30 Buttock Left Wound Culture - Preliminary NO GROWTH AFTER 24 HOURS Resulted Laboratory Tests Test 06/07/17 21:38 06/08/17 05:40 06/08/17 13:50 Troponin I 0.443 ng/mL (0.000-0.056) White Blood Count 14.2 K/UL (4.8-10.8) H Red Blood Count 3.76 M/UL (4.70-6.10) L Hemoglobin 10.6 G/DL (14.2-18.0) L Hematocrit 32.4 % (42.0-52.0) L Mean Corpuscular Volume 86 FL (80-99) Mean Corpuscular Hemoglobin 28.2 PG (27.0-31.0) Mean Corpuscular Hemoglobin Concent 32.7 G/DL (32.0-36.0) Red Cell Distribution Width 13.3 % (11.6-14.8) Platelet Count 236 K/UL (150-450) Mean Platelet Volume 6.7 FL (6.5-10.1) Neutrophils (%) (Auto) % (45.0-75.0) Lymphocytes (%) (Auto) % (20.0-45.0) Monocytes (%) (Auto) % (1.0-10.0) Eosinophils (%) (Auto) % (0.0-3.0) Basophils (%) (Auto) % (0.0-2.0) Differential Total Cells Counted 100 Neutrophils % (Manual) 94 % (45-75) H Lymphocytes % (Manual) 4 % (20-45) L Monocytes % (Manual) 2 % (1-10) Eosinophils % (Manual) 0 % (0-3) Basophils % (Manual) 0 % (0-2) Band Neutrophils 0 % (0-8) Platelet Estimate Adequate Platelet Morphology Normal Hypochromasia 1+ Prothrombin Time 12.3 SEC (9.30-11.50) H Prothromb Time International Ratio 1.2 (0.9-1.1) H Activated Partial Thromboplast Time 35 SEC (23-33) H Sodium Level 134 MMOL/L (136-145) L 135 MMOL/L (136-145) L Potassium Level 5.8 MMOL/L (3.5-5.1) H 5.2 MMOL/L (3.5-5.1) H Chloride Level 99 MMOL/L (98-107) 100 MMOL/L (98-107) Carbon Dioxide Level 15 MMOL/L (21-32) L 17 MMOL/L (21-32) L Anion Gap 20 mmol/L (5-15) H 18 mmol/L (5-15) H Blood Urea Nitrogen 162 mg/dL (7-18) H 161 mg/dL (7-18) H Creatinine 10.9 MG/DL (0.55-1.30) H 12.0 MG/DL (0.55-1.30) H Estimat Glomerular Filtration Rate mL/min (>60) mL/min (>60) Glucose Level 164 MG/DL (74-106) H 216 MG/DL (74-106) H Calcium Level 8.9 MG/DL (8.5-10.1) 8.7 MG/DL (8.5-10.1) Hepatitis B Surface Antigen Pending Hepatitis B Surface Antibody, Quant Pending Hepatitis C Antibody Pending Current Medications Medications (Trade) Dose Ordered Sig/Maureen Route PRN Reason Start Time Stop Time Status Last Admin Dose Admin Acetaminophen (Tylenol) 650 mg Q4H PRN ORAL Mild Pain/Temp > 100.5 06/06/17 17:45 07/06/17 17:44 06/08/17 01:13 Acetaminophen (Tylenol) 650 mg Q4H PRN ORAL Mild Pain (Pain Scale 1-3) 06/08/17 13:15 06/08/17 18:00 Ampicillin Sodium/ Sulbactam Sodium 3 gm/Sodium Chloride 110 ml @ 220 mls/hr Q24H IVPB 06/07/17 17:00 06/14/17 16:59 06/07/17 16:17 Atorvastatin Calcium (Lipitor) 40 mg BEDTIME ORAL 06/06/17 21:00 07/06/17 20:59 06/07/17 21:47 Carvedilol (Coreg) 3.125 mg DAILY ORAL 06/07/17 09:00 07/07/17 08:59 06/08/17 09:02 Diphenhydramine HCl (Benadryl) 25 mg Q15M PRN IVP Itching 06/08/17 13:15 06/08/17 18:00 Fentanyl Citrate (Sublimaze 100 mcg/2 mL) 25 mcg Q10M PRN IV Moderate Pain (Pain Scale 4-6) 06/08/17 13:15 06/08/17 18:00 Hydralazine HCl (Apresoline) 5 mg Q30M PRN IV SBP>160 /DBP>90 06/08/17 13:15 06/08/17 18:00 Hydralazine HCl (Apresoline) 25 mg Q8HR ORAL 06/06/17 22:00 07/06/17 21:59 06/08/17 05:36 Lactated Ringer's 1,000 ml @ 10 mls/hr Q24H IVLG 06/08/17 13:07 06/08/17 15:06 06/08/17 13:49 Neomycin/ Polymyxin/ Bacitracin (Neosporin Oint 15gm) 1 applic TWICE A DAY TOPIC 06/07/17 18:00 06/12/17 09:01 06/08/17 09:33 Ondansetron HCl (Zofran) 4 mg Q1H PRN IVP Nausea & Vomiting 06/08/17 13:15 06/08/17 18:00 Oxybutynin Chloride (Ditropan) 5 mg Q8HR ORAL 06/08/17 00:00 07/08/17 00:00 06/08/17 05:35 Tamsulosin HCl (Flomax) 0.4 mg BEDTIME ORAL 06/06/17 21:00 07/06/17 20:59 06/07/17 21:47 Vitamin A/Vitamin D (A & D Oint) 1 applic EVERY 12 HOURS TOPIC 06/07/17 21:00 07/07/17 20:59 06/08/17 09:33 Molly Hernadez M.D. Jun 08, 2017 14:43
[2017-06-08] MEDS ORDERED: Lidocaine 1% MPF 10mg/ml 5ml ONE (14:45)
[2017-06-08] MEDS ORDERED: Midazolam 2mg/2ml Inj ONE (14:45)
[2017-06-08] MEDS ORDERED: fentaNYL 100 mcg/2 mL IV ONE (14:45)
[2017-06-08] MEDS ORDERED: NS Irrig 2000ml IRRIG ONE (14:45)
[2017-06-08] MEDS ORDERED: Sterile Water For Irrig 2000ml IRRIG ONE ×2 (14:45→15:12)
--- NOTE | 2017-06-08 15:19 | Diagnostic Imaging Report ---
Indication: Renal failure, needs dialysis access Technique: Informed consent obtained prior to commencement of the procedure. Procedure timeout performed. Ultrasound confirms patent compressible right internal jugular vein. Total sterile technique, including sterile probe cover and sterile gel, sterile gloves, hand hygiene, hat, mask, sterile gown, large sterile drape, and preparation with 2% chlorhexidine utilized.Local anesthesia with 1% lidocaine. Under real-time ultrasound guidance, puncture right internal jugular vein using 20-gauge micropuncture needle, passage 0.018 guidewire, insertion 4 Emirati micropuncture introducer, passage 0.035 guidewire, over which was passed serial dilators and then a right transjugular temporally dialysis triple lumen 13 Emir[place] 15 cm catheter, under fluoroscopic supervision. Completion stored digital radiograph obtained, demonstrating catheter tip position at cavoatrial junction The patient tolerated the procedure well, without immediate complication. Fluoroscopy time 0.4 minutes Dose Area Product 13 dGycm2 Impression: Successful placement of right jugular temporary dialysis catheter, as described.
--- NOTE | 2017-06-08 15:30 | Consultation ---
DATE OF CONSULTATION: 06/07/2017 CARDIOLOGY CONSULTATION CONSULTING PHYSICIAN: Bobby Christy M.D. REFERRING PHYSICIAN: Moris Bull M.D. REASON FOR CONSULTATION: Management of elevated troponin level. HISTORY OF PRESENT ILLNESS: The patient is a very unfortunate 76-year-old gentleman, who presents to the emergency department from detention facility after 2 episodes of epistaxis, apparently in the nursing facility. The patient is receiving blood thinner injections. He did not have any chest pain or shortness of breath. In the past, he had been told upon evaluation in the emergency department, he was found to have a BUN of 159 and creatinine 10.4. His troponin I level was also elevated at 1.168. He was admitted to telemetry for further evaluation and management. Cardiology consultation was made at the request of Dr. Bull for assessment of elevation of troponin level. Of note, a 12-lead electrocardiogram in the emergency department had shown a sinus rhythm with no ST and T-wave abnormalities. At the bedside, the patient denies any chest pain or shortness of breath. He is unaware of his renal failure. PAST MEDICAL HISTORY: Hypertension. PAST SURGICAL HISTORY: None. MEDICATIONS: List of medications including, atorvastatin 40 mg p.o. at bedtime, carvedilol 3.125 mg p.o. once daily, Plavix 75 mg p.o. daily, hydralazine 25 mg every 8 hours., multivitamin one tablet p.o. daily, and tamsulosin 0.4 mg p.o. at bedtime. SOCIAL HISTORY: Denies any tobacco, alcohol, or illicit drug use. FAMILY HISTORY: No premature coronary artery disease in first-degree relatives. REVIEW OF SYSTEMS: HEENT: Denies any headache, diplopia, or blurred vision. CONSTITUTIONAL: Complains of generalized weakness, but no fever, chills, or night sweats. HEENT: Nosebleeds a few times. CARDIOVASCULAR: Denies any chest pain, shortness breath, PND, orthopnea, or leg swelling. PULMONARY: Denies any cough, hemoptysis, or wheezing. GASTROINTESTINAL: Any nausea, vomiting, diarrhea, constipation, abdominal pain, or GI bleed. GENITOURINARY: Denies any hematuria, dysuria, incontinence. NEUROLOGY: Denies any motor dysfunction, sensory deficit, or altered speech. PHYSICAL EXAMINATION: VITAL SIGNS: Blood pressure was 129/74, pulse of 87, respirations 16, O2 saturation 98% on room air, and temperature 98.4 degrees Fahrenheit. GENERAL: The patient is a very unfortunate 76-year-old gentleman, in no apparent respiratory distress. HEENT: Atraumatic and normocephalic. Anicteric. Pupils are equal, round, and reactive to light and accommodation. Extraocular muscles intact. There is dried blood in nares. NECK: JVP less than 5 cm. No carotid bruit. Carotid upstrokes 2+ bilaterally. CARDIOVASCULAR: Normal S1, S2. Regular rate and rhythm. No murmurs, gallops, or rubs. PMI is at fourth intercostal space in the midclavicular line. LUNGS: Clear to auscultation bilaterally. ABDOMEN: Soft, nontender, and nondistended. No hepatosplenomegaly. Positive bowel sounds. EXTREMITIES: No evidence of edema, clubbing, or cyanosis. LABORATORY AND DIAGNOSTIC DATA: Laboratory findings, WBC 16.9, hemoglobin of 11.1, hematocrit 34.2, and platelet count 274,000. Sodium is 135, potassium is 4.8, chloride 101, bicarbonate is 19, BUN of 159, creatinine 10.4, and glucose is 196. Calcium is 8.8. Troponin I 1.168. ProBNP was 1448. Chest x-ray shows mild cardiomegaly, equivocal mild interstitial congestion. ASSESSMENT AND PLAN: The patient is a very unfortunate 76-year-old gentleman, seen in Cardiology consultation at the request of Dr. Bull. 1. Elevated troponin I level in this patient, who is asymptomatic. Denying any chest pain or shortness of breath with most likely chronic kidney disease, stage 5 is likely due to troponin leak due to end-stage renal disease. I will obtain another troponin I level to determine the trend of the troponin I. There is no EKG changes. A 2D echocardiography has been ordered and pending results. At this time, there is no plan for cardiac catheterization. The patient should be prepared for hemodialysis. Further therapeutic and diagnostic decision will be based on the results of echocardiography. I will continue to manage the hemodynamics management. 2. History of hypertension. 3. Chronic kidney disease, stage 5. A 2D echocardiography will assess pericardial effusion, which may indicate . 4. History of end-stage renal disease. We will evaluate for presence of a pericardial effusion. I would like to thank, Dr. Bull , for the courtesy of this consultation. Bobby Christy M.D. DR: UMESH JOB#: [id number] CC:
--- NOTE | 2017-06-08 15:57 | Consultation ---
Consult Note Assessment/Plan Consult attempted, but patient is in surgery. Will re-attempt consult at a later time. Thank you Dr Bull. Jose San DPM Jun 08, 2017 15:57
--- NOTE | 2017-06-08 16:05 | Brief Operative Note ---
Immediate Post Operative Note Operative Note Pre-op Diagnosis: renal failure, urinary retention, bilateral hydronephrosis Procedure: cystoscopy, dilation of urethral stricture, clot evacuation, complex catheter placement Post-op Diagnosis: same Post-op Diagnosis: same as pre-op Surgeon: mara Anesthesiologist: lucy Anesthesia: general Specimen: none Complications: none Condition: stable Fluids: 250 mL saline Estimated Blood Loss: minimal Drains: other - [address] allen cath Implant(s) used?: No Van Calix M.D. Jun 08, 2017 16:05
[2017-06-08] MEDS: Ampicillin/Sulbactam Sod 3 GM in NS 110 ML IVPB SCH ×2 (17:22→22:20)
--- NOTE | 2017-06-08 18:08 | General Progress Note ---
Assessment/Plan Assessment/Plan ASSESSMENT AND RECOMMENDATIONS: 1. Deep venous thrombosis, which is extensive, of the right lower extremity. Have started patient on Eliquis 5 mg twice daily 2. Anemia secondary to hematuria. S/p cytoscopy 3. Acute kidney injury, end-stage renal disease, on dialysis. 4. Sepsis. Continue antibiotics with Unasyn. 5. Epistaxis due to anticoagulation. Subjective Allergies: Coded Allergies: No Known Allergies (Unverified , 06/06/17) All Systems: reviewed and negative except above Subjective NAD Objective Last 24 Hour Vital Signs Date Time Temp Pulse Resp B/P (MAP) Pulse Ox O2 Delivery O2 Flow Rate FiO2 06/08/17 17:24 148/81 06/08/17 16:50 99.9 96 19 138/81 95 Nasal Cannula 3.0 06/08/17 16:50 99.9 06/08/17 16:40 97 22 143/79 95 Nasal Cannula 3.0 06/08/17 16:29 96 14 139/86 96 Nasal Cannula 3.0 06/08/17 16:20 94 18 151/87 95 Nasal Cannula 3.0 06/08/17 16:10 89 18 164/76 95 Nasal Cannula 3.0 06/08/17 15:59 95 14 138/77 95 Simple Mask 8.0 06/08/17 15:54 79 20 144/80 96 Simple Mask 8.0 06/08/17 15:51 77 16 96 06/08/17 15:49 97.8 79 20 136/76 96 Simple Mask 8.0 06/08/17 11:30 79 18 135/80 100 Nasal Cannula 2.0 06/08/17 11:25 77 18 130/81 99 Nasal Cannula 2.0 06/08/17 11:20 81 24 128/57 100 Nasal Cannula 2.0 06/08/17 10:58 80 17 2.0 06/08/17 09:02 95 136/79 06/08/17 08:00 90 06/08/17 08:00 98.1 95 22 136/79 95 Nasal Cannula 06/08/17 05:36 127/73 06/08/17 04:00 90 06/08/17 04:00 99.0 87 20 124/73 97 Nasal Cannula 06/08/17 02:12 99.7 06/08/17 00:00 100.9 91 20 148/78 98 Nasal Cannula 06/08/17 00:00 93 06/07/17 21:48 132/78 06/07/17 20:50 Nasal Cannula 2.0 28 06/07/17 20:49 97 Nasal Cannula 2.0 28 06/07/17 20:00 81 06/07/17 20:00 98.2 87 20 124/73 96 Nasal Cannula Intake and Output 06/07/17 06/08/17 19:00 07:00 Intake Total 470 ml 100 ml Output Total 75 ml Balance 470 ml 25 ml Intake Oral 360 ml 100 ml IV Total 110 ml Output Urine Total 75 ml # Voids 3 # Bowel Movements 1 Laboratory Tests 06/07/17 21:38: Troponin I 0.443H 06/08/17 05:40: White Blood Count 14.2H, Red Blood Count 3.76L, Hemoglobin 10.6L, Hematocrit 32.4L, Mean Corpuscular Volume 86, Mean Corpuscular Hemoglobin 28.2, Mean Corpuscular Hemoglobin Concent 32.7, Red Cell Distribution Width 13.3, Platelet Count 236, Mean Platelet Volume 6.7, Neutrophils (%) (Auto) , Lymphocytes (%) ( Auto) , Monocytes (%) (Auto) , Eosinophils (%) (Auto) , Basophils (%) (Auto) , Differential Total Cells Counted 100, Neutrophils % (Manual) 94H, Lymphocytes % (Manual) 4L, Monocytes % (Manual) 2, Eosinophils % (Manual) 0, Basophils % ( Manual) 0, Band Neutrophils 0, Platelet Estimate Adequate, Platelet Morphology Normal, Hypochromasia 1+, Prothrombin Time 12.3H, Prothromb Time International Ratio 1.2H, Activated Partial Thromboplast Time 35H, Sodium Level 134L, Potassium Level 5.8H, Chloride Level 99, Carbon Dioxide Level 15L, Anion Gap 20H , Blood Urea Nitrogen 162H, Creatinine 10.9H, Estimat Glomerular Filtration Rate , Glucose Level 164H, Calcium Level 8.9 06/08/17 13:50: Sodium Level 135L, Potassium Level 5.2H, Chloride Level 100, Carbon Dioxide Level 17L, Anion Gap 18H, Blood Urea Nitrogen 161H, Creatinine 12.0H, Estimat Glomerular Filtration Rate , Glucose Level 216H, Calcium Level 8.7, Hepatitis B Surface Antigen [Pending], Hepatitis B Surface Antibody, Quant [Pending], Hepatitis C Antibody [Pending] Height (Feet): 6 Height (Inches): 1.00 Weight (Pounds): 190 General Appearance: no apparent distress EENT: normal ENT inspection Neck: normal alignment Cardiovascular: regular rhythm Extremities: normal range of motion Yossi More Jun 08, 2017 18:08
[2017-06-08] MEDS ORDERED: Cathflo Alteplase 2mg Inj INJ ONE ×2 (20:30→21:00)
[2017-06-08] MEDS: Tamsulosin 0.4mg cap ORAL SCH (22:21)
[2017-06-08] MEDS: Eliquis 2.5mg tablet ORAL SCH (22:23)
--- NOTE | 2017-06-09 00:15 | Operative Note - Dictated ---
DATE OF OPERATION: 06/08/2017 PRIMARY SURGEON: Van Calix M.D. PREOPERATIVE DIAGNOSES: Acute renal failure, urinary retention, and urethral stricture. POSTOPERATIVE DIAGNOSES: Acute renal failure, urinary retention, and urethral stricture. PROCEDURE PERFORMED: Cystoscopy, dilation of urethral stricture, clot evacuation, and complex catheter placement. ANESTHESIA: General. ESTIMATED BLOOD LOSS: Minimal. COMPLICATIONS: None. DRAINS: A 20-Botswanan three-way Garcia catheter with 30 mL of water in the balloon. SPECIMEN: None. PREOPERATIVE HISTORY: The patient is a pleasant 76-year-old gentleman with history of recurrent catheterization. He [facility] nosebleed. He apparently was being worked up for slightly elevated troponin at the [facility] as well as rising creatinine. On admission, his creatinine was 10. Renal ultrasound showed mild bilateral hydronephrosis and very poor emptying of the bladder. On admission on 06/07/2017, attempt was made to catheterize at the bedside, which was unsuccessful resulting in significant urethral trauma and hematuria. The patient had just stopped his Plavix the day prior to admission, so attempting bedside cystoscopy or procedures was ruled out. He was comfortable and planned for cystoscopy and evaluation of the urethra and possible dilation the following day. The patient understood the risks and benefits of intervention. Risks including but not limited to bleeding, infection, bladder injury, urethral injury, recurrence of stricture, and need for further surgery. The patient understood the risks, signed the consent, and was taken to the operating room. OPERATIVE PROCEDURE: The patient was brought to the operating room and general anesthesia was achieved easily. He was placed in the dorsal lithotomy position and all pressure points were padded. Preop antibiotics were given through the IV. A 23-Botswanan rigid cystoscope sheath was used with 30-degree lens. The anterior urethra was visualized and it was normal. At the level of the bulb of the urethra, there was significant urethral trauma noted. A false passage was created at 6 o'clock from prior catheterization attempt. It was clear that it was not a true urethra. With irrigation and pressure on the bladder, the hint of the true lumen was noted at approximately 1 o'clock and a superstiff guidewire was passed through the true lumen and seemingly coiled successfully in the bladder. With this 23-Botswanan cystoscope sheath, I was able to track the wire through the true lumen popping through the stricture disease and ending up in the prostatic urethra. The prostatic urethra itself was quite long with an elevated median lobe, but no significant intravesical portion and relatively cxynec-ye-swup length prostatic urethra. Bladder was entered. It had a significant amount of clot in it. The Scivantage evacuator was used to evacuate all the clot. Bladder was visualized showing signs of trauma and some trabeculation, but no areas of injury, tumors, masses, or lesions. A superstiff guidewire was then replaced into the bladder and the cystoscope was removed. A 20-B[place]wanan three-way Garcia catheter was passed over the guidewire successfully into the bladder. A 30 mL of water was filled in the balloon. The wire was removed effluxing clear urine at the end of the case. The patient was then woken up and taken to recovery room in stable fashion. He tolerated the procedure well. I was present for the entire case. All needle and instrument counts were correct at the end of the case. PLAN: 1. The patient should be observed and will likely need dialysis until renal function resolves. 2. Until renal function , it is recommended continuing Garcia catheter for the time being. Van Calix DR: YUE JOB#: [id number] CC:
[2017-06-09 03:17] VITALS: BP 95/54
[2017-06-09] MEDS: HydrALAZINE 25mg tab ORAL SCH ×3 (06:00→22:14)
[2017-06-09] MEDS: Oxybutynin 5mg tab ORAL SCH ×3 (06:20→22:14)
[2017-06-09 06:52] LABS: HEMATOCRIT 31.5 % (42.0-52.0); HEMOGLOBIN 10.3 G/DL (14.2-18.0); MEAN CORPUSCULAR VOLUME 85 FL (80-99); PLATELET COUNT 172 K/UL (150-450); RED BLOOD COUNT 3.72 M/UL (4.70-6.10); RED CELL DISTRIBUTION WIDTH 13.2 % (11.6-14.8); WHITE BLOOD COUNT 21.1 K/UL (4.8-10.8)
[2017-06-09 07:19] LABS: ANION GAP 16 mmol/L (5-15); BLOOD UREA NITROGEN 90 mg/dL (7-18); CALCIUM 7.4 MG/DL (8.5-10.1); CARBON DIOXIDE 24 MMOL/L (21-32); CHLORIDE 100 MMOL/L (98-107); CREATININE 4.2 MG/DL (0.55-1.30); POTASSIUM 4.3 MMOL/L (3.5-5.1); SODIUM 140 MMOL/L (136-145)
[2017-06-09 08:00] VITALS: BP 116/63
[2017-06-09] MEDS: Vitamin A&D Oint 2oz Tube TOPIC SCH ×2 (09:43→21:06)
[2017-06-09] MEDS: Eliquis 2.5mg tablet ORAL SCH ×2 (09:43→17:19)
[2017-06-09] MEDS: Dyna-Hex 2% Top Sol 2oz TOPIC SCH (09:43)
[2017-06-09] MEDS: Neosporin Oint 15gm TOPIC SCH ×2 (09:44→17:19)
--- NOTE | 2017-06-09 10:13 | General Progress Note ---
Assessment/Plan Assessment/Plan ASSESSMENT AND RECOMMENDATIONS: 1. Deep venous thrombosis, which is extensive, of the right lower extremity. Have started patient on Eliquis 5 mg twice daily 2. Anemia secondary to hematuria. Currently mild, will monitor 3. Acute kidney injury, end-stage renal disease, on dialysis. 4. Epistaxis due to anticoagulation. Resolved Subjective Hematologic/Lymphatic: Reports: anemia Allergies: Coded Allergies: No Known Allergies (Unverified , 06/06/17) All Systems: reviewed and negative except above Subjective NAD, on eliquis Objective Last 24 Hour Vital Signs Date Time Temp Pulse Resp B/P (MAP) Pulse Ox O2 Delivery O2 Flow Rate FiO2 06/09/17 09:43 82 116/63 06/09/17 08:00 97.1 82 19 116/63 93 Room Air 06/09/17 06:00 95/54 06/09/17 04:00 90 06/09/17 03:17 98.4 77 20 95/54 99 Room Air 77 06/09/17 00:00 101 06/08/17 23:57 111/62 06/08/17 23:25 98.4 98 20 85/58 100 Room Air 06/08/17 22:21 125/63 06/08/17 20:00 103 06/08/17 19:40 Nasal Cannula 2.0 06/08/17 19:30 Room Air 21 06/08/17 19:30 98 Room Air 21 06/08/17 19:18 101 119/74 06/08/17 17:40 Nasal Cannula 2.0 06/08/17 17:24 148/81 06/08/17 16:50 99.9 96 19 138/81 95 Nasal Cannula 3.0 06/08/17 16:50 99.9 06/08/17 16:40 97 22 143/79 95 Nasal Cannula 3.0 06/08/17 16:29 96 14 139/86 96 Nasal Cannula 3.0 06/08/17 16:20 94 18 151/87 95 Nasal Cannula 3.0 06/08/17 16:10 89 18 164/76 95 Nasal Cannula 3.0 06/08/17 16:00 89 06/08/17 15:59 95 14 138/77 95 Simple Mask 8.0 06/08/17 15:54 79 20 144/80 96 Simple Mask 8.0 06/08/17 15:51 77 16 96 06/08/17 15:49 97.8 79 20 136/76 96 Simple Mask 8.0 06/08/17 12:00 85 06/08/17 11:30 79 18 135/80 100 Nasal Cannula 2.0 06/08/17 11:25 77 18 130/81 99 Nasal Cannula 2.0 06/08/17 11:20 81 24 128/57 100 Nasal Cannula 2.0 06/08/17 10:58 80 17 2.0 Intake and Output 06/08/17 06/09/17 19:00 07:00 Intake Total 350 ml 110 ml Output Total 450 ml 2980 ml Balance -100 ml -2870 ml IV Total 350 ml 110 ml Output Urine Total 450 ml 1700 ml Hemodialysis UF 1280 ml # Bowel Movements 1 Laboratory Tests 06/08/17 13:50: Sodium Level 135L, Potassium Level 5.2H, Chloride Level 100, Carbon Dioxide Level 17L, Anion Gap 18H, Blood Urea Nitrogen 161H, Creatinine 12.0H, Estimat Glomerular Filtration Rate , Glucose Level 216H, Calcium Level 8.7, Hepatitis B Surface Antigen Negative, Hepatitis B Surface Antibody, Quant <8, Hepatitis C Antibody 0.09 06/09/17 04:30: Sodium Level 140, Potassium Level 4.3, Chloride Level 100, Carbon Dioxide Level 24, Anion Gap 16H, Blood Urea Nitrogen 90H, Creatinine 4.2#H, Estimat Glomerular Filtration Rate , Glucose Level 169H, Calcium Level 7.4L, White Blood Count 21.1H, Red Blood Count 3.72L, Hemoglobin 10.3L, Hematocrit 31.5L, Mean Corpuscular Volume 85, Mean Corpuscular Hemoglobin 27.7, Mean Corpuscular Hemoglobin Concent 32.8, Red Cell Distribution Width 13.2, Platelet Count 172, Mean Platelet Volume 7.6, Neutrophils (%) (Auto) , Lymphocytes (%) (Auto) , Monocytes (%) (Auto) , Eosinophils (%) (Auto) , Basophils (%) (Auto) , Differential Total Cells Counted 100, Neutrophils % (Manual) 81H, Lymphocytes % (Manual) 14L, Monocytes % (Manual) 5, Eosinophils % (Manual) 0, Basophils % ( Manual) 0, Band Neutrophils 0, Platelet Estimate Adequate, Platelet Morphology Normal, Hypochromasia 1+ Height (Feet): 6 Height (Inches): 1.00 Weight (Pounds): 190 General Appearance: no apparent distress EENT: normal ENT inspection Neck: normal alignment Cardiovascular: normal peripheral pulses Respiratory/Chest: chest wall non-tender Edema: trace edema 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
--- NOTE | 2017-06-09 11:10 | Pulmonology Progress Note ---
Assessment/Plan Assessment/Plan IMPRESSION: 1. Pulmonary edema. 2. Vascular congestion. 3. Hypoxemia requiring nasal oxygen. 4. Epistaxis. 5. DVT; on Eliquis DISCUSSION: Continue diuresis. Supplement oxygen via nasal cannula to correct hypoxemia. 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 Subjective Interval Events: Now has DVT; doing well; s/p urologic surgery Constitutional: Reports: no symptoms HEENT: Repors: no symptoms Respiratory: Reports: no symptoms Cardiovascular: Reports: no symptoms Gastrointestinal/Abdominal: Reports: no symptoms Allergies: Coded Allergies: No Known Allergies (Unverified , 06/06/17) Objective Last 24 Hour Vital Signs Date Time Temp Pulse Resp B/P (MAP) Pulse Ox O2 Delivery O2 Flow Rate FiO2 06/09/17 09:43 82 116/63 06/09/17 08:00 97.1 82 19 116/63 93 Room Air 06/09/17 06:00 95/54 06/09/17 04:00 90 06/09/17 03:17 98.4 77 20 95/54 99 Room Air 77 06/09/17 00:00 101 06/08/17 23:57 111/62 06/08/17 23:25 98.4 98 20 85/58 100 Room Air 06/08/17 22:21 125/63 06/08/17 20:00 103 06/08/17 19:40 Nasal Cannula 2.0 06/08/17 19:30 Room Air 21 06/08/17 19:30 98 Room Air 21 06/08/17 19:18 101 119/74 06/08/17 17:40 Nasal Cannula 2.0 06/08/17 17:24 148/81 06/08/17 16:50 99.9 96 19 138/81 95 Nasal Cannula 3.0 06/08/17 16:50 99.9 06/08/17 16:40 97 22 143/79 95 Nasal Cannula 3.0 06/08/17 16:29 96 14 139/86 96 Nasal Cannula 3.0 06/08/17 16:20 94 18 151/87 95 Nasal Cannula 3.0 06/08/17 16:10 89 18 164/76 95 Nasal Cannula 3.0 06/08/17 16:00 89 06/08/17 15:59 95 14 138/77 95 Simple Mask 8.0 06/08/17 15:54 79 20 144/80 96 Simple Mask 8.0 06/08/17 15:51 77 16 96 06/08/17 15:49 97.8 79 20 136/76 96 Simple Mask 8.0 06/08/17 12:00 85 06/08/17 11:30 79 18 135/80 100 Nasal Cannula 2.0 06/08/17 11:25 77 18 130/81 99 Nasal Cannula 2.0 06/08/17 11:20 81 24 128/57 100 Nasal Cannula 2.0 Intake and Output 06/08/17 06/09/17 19:00 07:00 Intake Total 350 ml 110 ml Output Total 450 ml 2980 ml Balance -100 ml -2870 ml IV Total 350 ml 110 ml Output Urine Total 450 ml 1700 ml Hemodialysis UF 1280 ml # Bowel Movements 1 General Appearance: no acute distress HEENT: normocephalic Respiratory/Chest: chest wall non-tender, lungs clear Cardiovascular: normal peripheral pulses, normal rate Abdomen: normal bowel sounds Microbiology Date/Time Source Procedure Growth Status 06/07/17 16:00 Blood Blood Culture - Preliminary NO GROWTH AFTER 24 HOURS Resulted 06/07/17 15:40 Blood Blood Culture - Preliminary NO GROWTH AFTER 24 HOURS Resulted 06/06/17 16:00 Nasal Nares MRSA Culture - Final NO METHICILLIN RESISTANT STAPH AUREUS... Complete 06/07/17 05:30 Buttock Left Gram Stain Pending Resulted 06/07/17 05:30 Buttock Left Wound Culture - Preliminary NO GROWTH AFTER 24 HOURS Resulted 06/06/17 16:00 Rectum VRE Culture - Final NO VANCOMYCIN RESISTANT ENTEROCOCCUS ... Complete Laboratory Tests 06/08/17 13:50: Sodium Level 135L, Potassium Level 5.2H, Chloride Level 100, Carbon Dioxide Level 17L, Anion Gap 18H, Blood Urea Nitrogen 161H, Creatinine 12.0H, Estimat Glomerular Filtration Rate , Glucose Level 216H, Calcium Level 8.7, Hepatitis B Surface Antigen Negative, Hepatitis B Surface Antibody, Quant <8, Hepatitis C Antibody 0.09 06/09/17 04:30: Sodium Level 140, Potassium Level 4.3, Chloride Level 100, Carbon Dioxide Level 24, Anion Gap 16H, Blood Urea Nitrogen 90H, Creatinine 4.2#H, Estimat Glomerular Filtration Rate , Glucose Level 169H, Calcium Level 7.4L, White Blood Count 21.1H, Red Blood Count 3.72L, Hemoglobin 10.3L, Hematocrit 31.5L, Mean Corpuscular Volume 85, Mean Corpuscular Hemoglobin 27.7, Mean Corpuscular Hemoglobin Concent 32.8, Red Cell Distribution Width 13.2, Platelet Count 172, Mean Platelet Volume 7.6, Neutrophils (%) (Auto) , Lymphocytes (%) (Auto) , Monocytes (%) (Auto) , Eosinophils (%) (Auto) , Basophils (%) (Auto) , Differential Total Cells Counted 100, Neutrophils % (Manual) 81H, Lymphocytes % (Manual) 14L, Monocytes % (Manual) 5, Eosinophils % (Manual) 0, Basophils % ( Manual) 0, Band Neutrophils 0, Platelet Estimate Adequate, Platelet Morphology Normal, Hypochromasia 1+ Current Medications Medications (Trade) Dose Ordered Sig/Maureen Route PRN Reason Start Time Stop Time Status Last Admin Dose Admin Acetaminophen (Tylenol) 650 mg Q4H PRN ORAL Mild Pain/Temp > 100.5 06/06/17 17:45 07/06/17 17:44 06/08/17 01:13 Ampicillin Sodium/ Sulbactam Sodium 3 gm/Sodium Chloride 110 ml @ 220 mls/hr Q24H IVPB 06/07/17 17:00 06/14/17 16:59 06/08/17 22:20 Apixaban (Eliquis) 5 mg BID ORAL 06/08/17 18:30 07/08/17 18:29 06/09/17 09:43 Atorvastatin Calcium (Lipitor) 40 mg BEDTIME ORAL 06/06/17 21:00 07/06/17 20:59 06/08/17 22:22 Carvedilol (Coreg) 3.125 mg DAILY ORAL 06/07/17 09:00 07/07/17 08:59 06/09/17 09:43 Chlorhexidine Gluconate (Corinna-Hex 2%) 1 applic DAILY TOPIC 06/09/17 09:00 07/09/17 08:59 06/09/17 09:43 Hydralazine HCl (Apresoline) 25 mg Q8HR ORAL 06/06/17 22:00 07/06/17 21:59 06/08/17 22:21 Neomycin/ Polymyxin/ Bacitracin (Neosporin Oint 15gm) 1 applic TWICE A DAY TOPIC 06/07/17 18:00 06/12/17 09:01 06/09/17 09:44 Oxybutynin Chloride (Ditropan) 5 mg Q8HR ORAL 06/08/17 00:00 07/08/17 00:00 06/09/17 06:20 Tamsulosin HCl (Flomax) 0.4 mg BEDTIME ORAL 06/06/17 21:00 07/06/17 20:59 06/08/17 22:21 Vitamin A/Vitamin D (A & D Oint) 1 applic EVERY 12 HOURS TOPIC 06/07/17 21:00 07/07/17 20:59 06/09/17 09:43 Blair Delacruz MD Jun 09, 2017 11:10
[2017-06-09 12:00] VITALS: BP 110/68
--- NOTE | 2017-06-09 12:26 | 48 Hour Post Anesthesia Eval ---
Post Anesthesia Evaluation Procedure: Cystoscopy Date of Evaluation: Jun 09, 2017 Time of Evaluation: 12:25 Blood Pressure Systolic: 116 0: 72 Pulse Rate: 68 Respiratory Rate: 20 Temperature (Fahrenheit): 97.8 O2 Sat by Pulse Oximetry: 98 Airway: patent Nausea: No Vomiting: No Pain Intensity: 2 Hydration Status: adequate Cardiopulmonary Status: stable Mental Status/LOC: patient returned to baseline Follow-up Care/Observations: n/a Post-Anesthesia Complications: none Follow-up care needed: N/A MOLLY TALAVERA M.D. Jun 09, 2017 12:26
--- NOTE | 2017-06-09 12:50 | Nephrology Progress Note ---
Assessment/Plan Problem List: (1) Bilateral hydronephrosis (2) Renal cyst (3) Acute renal failure (4) Congestive heart failure (5) Urinary retention due to benign prostatic hyperplasia (6) HLD (hyperlipidemia) (7) HTN (hypertension) (8) Epistaxis (9) Elevated troponin (10) Acute on chronic kidney failure Plan HD access clotted Will attempt HD tomorrow if creatinine still elevated monitor lites and correct prn Continue allen per urology Pain management prn DVT prophylaxis PPI daily AM labs Subjective Constitutional: Denies: no symptoms, chills, diaphoresis, fever, malaise, weakness, other HEENT: Denies: no symptoms, eye pain, blurred vision, tearing, double vision, ear pain, ear discharge, nose pain, nose congestion, throat pain, throat swelling, mouth pain, mouth swelling, other Genitourinary: Denies: no symptoms, burning, discharge, frequency, flank pain, hematuria, incontinence, pain, urgency, other Neurologic/Psychiatric: Denies: no symptoms, anxiety, depressed, emotional problems, headache, numbness, paresthesia, pre-existing deficit, seizure, tingling, tremors, weakness, other Subjective In bed, asleep but arousable, denies discomfort at this time, adequate urine output noted. Objective Objective Last 24 Hour Vital Signs Date Time Temp Pulse Resp B/P (MAP) Pulse Ox O2 Delivery O2 Flow Rate FiO2 06/09/17 12:26 68 20 98 06/09/17 12:00 97.1 87 17 110/68 98 Room Air 06/09/17 09:43 82 116/63 06/09/17 08:00 97.1 82 19 116/63 93 Room Air 06/09/17 08:00 94 06/09/17 06:00 95/54 06/09/17 04:00 90 06/09/17 03:17 98.4 77 20 95/54 99 Room Air 77 06/09/17 00:00 101 06/08/17 23:57 111/62 06/08/17 23:25 98.4 98 20 85/58 100 Room Air 06/08/17 22:21 125/63 06/08/17 20:00 103 06/08/17 19:40 Nasal Cannula 2.0 06/08/17 19:30 Room Air 21 06/08/17 19:30 98 Room Air 21 06/08/17 19:18 101 119/74 06/08/17 17:40 Nasal Cannula 2.0 06/08/17 17:24 148/81 06/08/17 16:50 99.9 96 19 138/81 95 Nasal Cannula 3.0 06/08/17 16:50 99.9 06/08/17 16:40 97 22 143/79 95 Nasal Cannula 3.0 06/08/17 16:29 96 14 139/86 96 Nasal Cannula 3.0 06/08/17 16:20 94 18 151/87 95 Nasal Cannula 3.0 06/08/17 16:10 89 18 164/76 95 Nasal Cannula 3.0 06/08/17 16:00 89 06/08/17 15:59 95 14 138/77 95 Simple Mask 8.0 06/08/17 15:54 79 20 144/80 96 Simple Mask 8.0 06/08/17 15:51 77 16 96 06/08/17 15:49 97.8 79 20 136/76 96 Simple Mask 8.0 Intake and Output 06/08/17 06/09/17 19:00 07:00 Intake Total 350 ml 110 ml Output Total 450 ml 2980 ml Balance -100 ml -2870 ml IV Total 350 ml 110 ml Output Urine Total 450 ml 1700 ml Hemodialysis UF 1280 ml # Bowel Movements 1 Laboratory Tests 06/08/17 13:50: Sodium Level 135L, Potassium Level 5.2H, Chloride Level 100, Carbon Dioxide Level 17L, Anion Gap 18H, Blood Urea Nitrogen 161H, Creatinine 12.0H, Estimat Glomerular Filtration Rate , Glucose Level 216H, Calcium Level 8.7, Hepatitis B Surface Antigen Negative, Hepatitis B Surface Antibody, Quant <8, Hepatitis C Antibody 0.09 06/09/17 04:30: Sodium Level 140, Potassium Level 4.3, Chloride Level 100, Carbon Dioxide Level 24, Anion Gap 16H, Blood Urea Nitrogen 90H, Creatinine 4.2#H, Estimat Glomerular Filtration Rate , Glucose Level 169H, Calcium Level 7.4L, White Blood Count 21.1H, Red Blood Count 3.72L, Hemoglobin 10.3L, Hematocrit 31.5L, Mean Corpuscular Volume 85, Mean Corpuscular Hemoglobin 27.7, Mean Corpuscular Hemoglobin Concent 32.8, Red Cell Distribution Width 13.2, Platelet Count 172, Mean Platelet Volume 7.6, Neutrophils (%) (Auto) , Lymphocytes (%) (Auto) , Monocytes (%) (Auto) , Eosinophils (%) (Auto) , Basophils (%) (Auto) , Differential Total Cells Counted 100, Neutrophils % (Manual) 81H, Lymphocytes % (Manual) 14L, Monocytes % (Manual) 5, Eosinophils % (Manual) 0, Basophils % ( Manual) 0, Band Neutrophils 0, Platelet Estimate Adequate, Platelet Morphology Normal, Hypochromasia 1+ Height (Feet): 6 Height (Inches): 1.00 Weight (Pounds): 190 General Appearance: no apparent distress, alert EENT: normal ENT inspection Neck: non-tender, normal alignment, supple Cardiovascular: normal rate, no JVD Respiratory/Chest: no respiratory distress, no accessory muscle use Abdomen: soft Genitourinary/Rectal: other - three-way allen Extremities: non-tender, normal inspection Neurologic: alert, oriented x 3, responsive, normal mood/affect Nathaly Smalls N.P. Jun 09, 2017 12:50
--- NOTE | 2017-06-09 15:23 | Infectious Diseases Prog Note ---
Assessment/Plan Problems: (1) Epistaxis Assessment & Plan: due to anticoagulation, ENT is following, will cover empirically with Unasyn (2) Elevated troponin Assessment & Plan: rule out ACS , recommend cardiology eval (3) Sepsis Assessment & Plan: with leukocytosis , due to pyelonephritis from bladder outlet obstruction and urethral stricture , await blood and urine culture, continue unasyn empirically , monitor WBC (4) Bilateral hydronephrosis Assessment & Plan: rule out prostate enlargement , urology eval is in progress (5) Acute renal failure Assessment & Plan: due to the above, continue hydration, monitor renal function , nephrology is following Subjective Constitutional: Reports: no symptoms HEENT: Reports: no symptoms Respiratory: Reports: no symptoms Breasts: Reports: no symptoms Cardiovascular: Reports: no symptoms Gastrointestinal/Abdominal: Reports: no symptoms Genitourinary: Reports: hematuria, other - burning Neurologic: Reports: no symptoms Psychiatric: Reports: no symptoms Skin: Reports: no symptoms Endocrine: Reports: no symptoms Hematologic: Reports: no symptoms Musculoskeletal: Reports: no symptoms Allergies: Coded Allergies: No Known Allergies (Unverified , 06/06/17) Objective Vital Signs Last 24 Hour Vital Signs Date Time Temp Pulse Resp B/P (MAP) Pulse Ox O2 Delivery O2 Flow Rate FiO2 06/09/17 13:46 148/85 06/09/17 12:26 68 20 98 06/09/17 12:00 97.1 87 17 110/68 98 Room Air 06/09/17 12:00 91 06/09/17 09:43 82 116/63 06/09/17 08:00 97.1 82 19 116/63 93 Room Air 06/09/17 08:00 94 06/09/17 06:00 95/54 06/09/17 04:00 90 06/09/17 03:17 98.4 77 20 95/54 99 Room Air 77 06/09/17 00:00 101 06/08/17 23:57 111/62 06/08/17 23:25 98.4 98 20 85/58 100 Room Air 06/08/17 22:21 125/63 06/08/17 20:00 103 06/08/17 19:40 Nasal Cannula 2.0 06/08/17 19:30 Room Air 21 06/08/17 19:30 98 Room Air 21 06/08/17 19:18 101 119/74 06/08/17 17:40 Nasal Cannula 2.0 06/08/17 17:24 148/81 06/08/17 16:50 99.9 96 19 138/81 95 Nasal Cannula 3.0 06/08/17 16:50 99.9 06/08/17 16:40 97 22 143/79 95 Nasal Cannula 3.0 06/08/17 16:29 96 14 139/86 96 Nasal Cannula 3.0 06/08/17 16:20 94 18 151/87 95 Nasal Cannula 3.0 06/08/17 16:10 89 18 164/76 95 Nasal Cannula 3.0 06/08/17 16:00 89 06/08/17 15:59 95 14 138/77 95 Simple Mask 8.0 06/08/17 15:54 79 20 144/80 96 Simple Mask 8.0 06/08/17 15:51 77 16 96 06/08/17 15:49 97.8 79 20 136/76 96 Simple Mask 8.0 Height (Feet): 6 Height (Inches): 1.00 Weight (Pounds): 190 General Appearance: WD/WN, no acute distress HEENT: normocephalic, atraumatic, anicteric, mucous membranes moist, PERRL Respiratory/Chest: chest wall non-tender, lungs clear, normal breath sounds, no respiratory distress, no accessory muscle use Cardiovascular: normal peripheral pulses, normal rate, regular rhythm, no gallop/murmur, no JVD Abdomen: normal bowel sounds, soft, non tender, no organomegaly, non distended , no mass, no scars Genitourinary: normal external genitalia Extremities: no cyanosis, no clubbing Skin: no rash, no lesions, ulcers Neurologic/Psychiatric: alert, oriented x 3, responsive Lymphatic: no neck adenopathy, no groin adenopathy Microbiology Date/Time Source Procedure Growth Status 06/07/17 16:00 Blood Blood Culture - Preliminary NO GROWTH AFTER 24 HOURS Resulted 06/07/17 15:40 Blood Blood Culture - Preliminary NO GROWTH AFTER 24 HOURS Resulted 06/06/17 16:00 Nasal Nares MRSA Culture - Final NO METHICILLIN RESISTANT STAPH AUREUS... Complete 06/07/17 05:30 Buttock Left Gram Stain - Final Resulted 06/07/17 05:30 Wound Culture - Preliminary Usual Skin Kathy Resulted 06/06/17 16:00 Rectum VRE Culture - Final NO VANCOMYCIN RESISTANT ENTEROCOCCUS ... Complete Laboratory Tests Test 06/09/17 04:30 White Blood Count 21.1 K/UL (4.8-10.8) H Red Blood Count 3.72 M/UL (4.70-6.10) L Hemoglobin 10.3 G/DL (14.2-18.0) L Hematocrit 31.5 % (42.0-52.0) L Mean Corpuscular Volume 85 FL (80-99) Mean Corpuscular Hemoglobin 27.7 PG (27.0-31.0) Mean Corpuscular Hemoglobin Concent 32.8 G/DL (32.0-36.0) Red Cell Distribution Width 13.2 % (11.6-14.8) Platelet Count 172 K/UL (150-450) Mean Platelet Volume 7.6 FL (6.5-10.1) Neutrophils (%) (Auto) % (45.0-75.0) Lymphocytes (%) (Auto) % (20.0-45.0) Monocytes (%) (Auto) % (1.0-10.0) Eosinophils (%) (Auto) % (0.0-3.0) Basophils (%) (Auto) % (0.0-2.0) Differential Total Cells Counted 100 Neutrophils % (Manual) 81 % (45-75) H Lymphocytes % (Manual) 14 % (20-45) L Monocytes % (Manual) 5 % (1-10) Eosinophils % (Manual) 0 % (0-3) Basophils % (Manual) 0 % (0-2) Band Neutrophils 0 % (0-8) Platelet Estimate Adequate Platelet Morphology Normal Hypochromasia 1+ Sodium Level 140 MMOL/L (136-145) Potassium Level 4.3 MMOL/L (3.5-5.1) Chloride Level 100 MMOL/L (98-107) Carbon Dioxide Level 24 MMOL/L (21-32) Anion Gap 16 mmol/L (5-15) H Blood Urea Nitrogen 90 mg/dL (7-18) H Creatinine 4.2 MG/DL (0.55-1.30) #H Estimat Glomerular Filtration Rate mL/min (>60) Glucose Level 169 MG/DL (74-106) H Calcium Level 7.4 MG/DL (8.5-10.1) L Current Medications Medications (Trade) Dose Ordered Sig/Maureen Route PRN Reason Start Time Stop Time Status Last Admin Dose Admin Acetaminophen (Tylenol) 650 mg Q4H PRN ORAL Mild Pain/Temp > 100.5 06/06/17 17:45 07/06/17 17:44 06/08/17 01:13 Ampicillin Sodium/ Sulbactam Sodium 3 gm/Sodium Chloride 110 ml @ 220 mls/hr Q24H IVPB 06/07/17 17:00 06/14/17 16:59 06/08/17 22:20 Apixaban (Eliquis) 5 mg BID ORAL 06/08/17 18:30 07/08/17 18:29 06/09/17 09:43 Atorvastatin Calcium (Lipitor) 40 mg BEDTIME ORAL 06/06/17 21:00 07/06/17 20:59 06/08/17 22:22 Carvedilol (Coreg) 3.125 mg DAILY ORAL 06/07/17 09:00 07/07/17 08:59 06/09/17 09:43 Chlorhexidine Gluconate (Corinna-Hex 2%) 1 applic DAILY TOPIC 06/09/17 09:00 07/09/17 08:59 06/09/17 09:43 Hydralazine HCl (Apresoline) 25 mg Q8HR ORAL 06/06/17 22:00 07/06/17 21:59 06/09/17 13:46 Neomycin/ Polymyxin/ Bacitracin (Neosporin Oint 15gm) 1 applic TWICE A DAY TOPIC 06/07/17 18:00 06/12/17 09:01 06/09/17 09:44 Oxybutynin Chloride (Ditropan) 5 mg Q8HR ORAL 06/08/17 00:00 07/08/17 00:00 06/09/17 13:47 Pantoprazole (Protonix) 40 mg DAILY ORAL 06/10/17 09:00 07/10/17 08:59 Tamsulosin HCl (Flomax) 0.4 mg BEDTIME ORAL 06/06/17 21:00 07/06/17 20:59 06/08/17 22:21 Vitamin A/Vitamin D (A & D Oint) 1 applic EVERY 12 HOURS TOPIC 06/07/17 21:00 07/07/17 20:59 06/09/17 09:43 Molly Hernadez M.D. Jun 09, 2017 15:23
[2017-06-09 16:00] VITALS: BP 108/64
[2017-06-09] MEDS: Ampicillin/Sulbactam Sod 3 GM in NS 110 ML IVPB SCH (17:19)
[2017-06-09 20:00] VITALS: BP 120/66
[2017-06-09] MEDS: Tamsulosin 0.4mg cap ORAL SCH (21:05)
[2017-06-10] VITALS: BP 120/61
--- NOTE | 2017-06-10 | Cardiology Report ---
APPROVED REPORT EXAM: Two-dimensional and M-mode echocardiogram with Doppler and color Doppler. INDICATION Acute myocarial infarction M-Mode DIMENSIONS IVSd1.4 (0.7-1.1cm)Left Atrium (MM)4.9 (1.6-4.0cm) LVDd4.8 (3.5-5.6cm)Aortic Root3.1 (2.0-3.7cm) PWd1.5 (0.7-1.1cm)Aortic Cusp Exc.1.4 (1.5-2.0cm) IVSs2.6 cm LVDs3.3 (2.5-4.0cm) PWs1.5 cm Normal left ventricular chamber size, systolic function and wall motion to extent visualized. Left ventricular ejection fraction estimated to be 60 %. Mild left ventricular hypertrophy . No evidence of pericardial effusion Mild bi-atrial enlargement. Right ventricle is mildly enlarged with reduced function. Focal aortic valve sclerosis with adequate cusp excursion. Thickened mitral valve leaflets with normal excursion. Mitral annulus and aortic root calcification. Pulmonic valve not well visualized. Normal tricuspid valve structure. IVC at 1.8 cm with physiologic collapse. A color flow and spectral Doppler study was performed and revealed: No aortic regurgitation. Mild mitral regurgitation. Mitral diastolic velocities suggest reduced left ventricular relaxation c/w mild LV diastolic dysfunction (Grade I ). moderate tricuspid regurgitation. Tricuspid systolic velocities suggests peak right ventricular systolic pressure of 67 mmHg consistent with severe pulmonary hypertension. No Pulmonic regurgitation present.
[2017-06-10 04:00] VITALS: BP 118/69
[2017-06-10] MEDS: HydrALAZINE 25mg tab ORAL SCH ×3 (06:35→22:44)
[2017-06-10] MEDS: Oxybutynin 5mg tab ORAL SCH ×3 (06:35→22:44)
[2017-06-10 07:38] LABS: BASOPHILS % (AUTO) 0.4 % (0.0-2.0); EOSINOPHILS % (AUTO) 1.2 % (0.0-3.0); HEMATOCRIT 29.5 % (42.0-52.0); HEMOGLOBIN 9.6 G/DL (14.2-18.0); LYMPHOCYTES % (AUTO) 16.5 % (20.0-45.0); MEAN CORPUSCULAR VOLUME 85 FL (80-99); MONOCYTES % (AUTO) 9.6 % (1.0-10.0); NEUTROPHILS % (AUTO) 72.3 % (45.0-75.0); PLATELET COUNT 171 K/UL (150-450); RED BLOOD COUNT 3.47 M/UL (4.70-6.10); WHITE BLOOD COUNT 10.5 K/UL (4.8-10.8)
[2017-06-10 08:00] VITALS: BP 100/70
[2017-06-10 08:02] LABS: ANION GAP 8 mmol/L (5-15); BLOOD UREA NITROGEN 48 mg/dL (7-18); CALCIUM 7.1 MG/DL (8.5-10.1); CARBON DIOXIDE 31 MMOL/L (21-32); CHLORIDE 102 MMOL/L (98-107); CREATININE 1.5 MG/DL (0.55-1.30); POTASSIUM 3.3 MMOL/L (3.5-5.1); SODIUM 141 MMOL/L (136-145)
[2017-06-10] MEDS: Carvedilol 6.25mg Tab ORAL SCH (09:02)
[2017-06-10] MEDS: Eliquis 2.5mg tablet ORAL SCH ×2 (09:05→17:44)
[2017-06-10] MEDS: Vitamin A&D Oint 2oz Tube TOPIC SCH ×2 (09:05→20:30)
[2017-06-10] MEDS: Dyna-Hex 2% Top Sol 2oz TOPIC SCH (09:05)
[2017-06-10] MEDS: Neosporin Oint 15gm TOPIC SCH ×2 (09:06→17:44)
[2017-06-10 12:00] VITALS: BP 115/65
--- NOTE | 2017-06-10 12:14 | Pulmonology Progress Note ---
Assessment/Plan Assessment/Plan IMPRESSION: 1. Pulmonary edema. 2. Vascular congestion. 3. Hypoxemia requiring nasal oxygen. 4. Epistaxis. 5. DVT; on Eliquis DISCUSSION: Continue diuresis. Supplement oxygen via nasal cannula to correct hypoxemia. 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 Subjective Interval Events: No new events Constitutional: Reports: no symptoms HEENT: Repors: no symptoms Respiratory: Reports: no symptoms Cardiovascular: Reports: no symptoms Allergies: Coded Allergies: No Known Allergies (Unverified , 06/06/17) Objective Last 24 Hour Vital Signs Date Time Temp Pulse Resp B/P (MAP) Pulse Ox O2 Delivery O2 Flow Rate FiO2 06/10/17 09:02 100 100/70 06/10/17 08:00 89 06/10/17 08:00 97.6 100 18 100/70 94 Room Air 100 06/10/17 06:35 118/74 06/10/17 04:00 98 06/10/17 04:00 98.1 91 22 118/69 91 Room Air 91 06/10/17 00:00 98.6 81 20 120/61 92 Room Air 06/10/17 00:00 91 06/09/17 22:14 110/67 06/09/17 20:00 98.6 89 22 120/66 91 Room Air 06/09/17 20:00 88 06/09/17 16:00 85 06/09/17 16:00 97.8 84 19 108/64 94 Room Air 06/09/17 13:46 148/85 06/09/17 12:26 68 20 98 Intake and Output 06/09/17 06/10/17 19:00 07:00 Intake Total 236 ml Output Total 600 ml 200 ml Balance -364 ml -200 ml Intake Oral 236 ml Output Urine Total 600 ml 200 ml # Voids 2 General Appearance: no acute distress HEENT: normocephalic Respiratory/Chest: chest wall non-tender, lungs clear Cardiovascular: normal peripheral pulses, normal rate Abdomen: normal bowel sounds Microbiology Date/Time Source Procedure Growth Status 06/07/17 16:00 Blood Blood Culture - Preliminary NO GROWTH AFTER 24 HOURS Resulted 06/07/17 15:40 Blood Blood Culture - Preliminary NO GROWTH AFTER 24 HOURS Resulted Laboratory Tests 06/10/17 06:35: White Blood Count 10.5#, Red Blood Count 3.47L, Hemoglobin 9.6L, Hematocrit 29.5L, Mean Corpuscular Volume 85, Mean Corpuscular Hemoglobin 27.6, Mean Corpuscular Hemoglobin Concent 32.4, Red Cell Distribution Width 13.0, Platelet Count 171, Mean Platelet Volume 7.3, Neutrophils (%) (Auto) 72.3, Lymphocytes (% ) (Auto) 16.5L, Monocytes (%) (Auto) 9.6, Eosinophils (%) (Auto) 1.2, Basophils (%) (Auto) 0.4, Sodium Level 141, Potassium Level 3.3L, Chloride Level 102, Carbon Dioxide Level 31, Anion Gap 8, Blood Urea Nitrogen 48H, Creatinine 1.5#H , Estimat Glomerular Filtration Rate , Glucose Level 176H, Calcium Level 7.1L Current Medications Medications (Trade) Dose Ordered Sig/Maureen Route PRN Reason Start Time Stop Time Status Last Admin Dose Admin Acetaminophen (Tylenol) 650 mg Q4H PRN ORAL Mild Pain/Temp > 100.5 06/06/17 17:45 07/06/17 17:44 06/08/17 01:13 Ampicillin Sodium/ Sulbactam Sodium 3 gm/Sodium Chloride 110 ml @ 220 mls/hr Q24H IVPB 06/07/17 17:00 06/14/17 16:59 06/09/17 17:19 Apixaban (Eliquis) 5 mg BID ORAL 06/08/17 18:30 07/08/17 18:29 06/10/17 09:05 Atorvastatin Calcium (Lipitor) 40 mg BEDTIME ORAL 06/06/17 21:00 07/06/17 20:59 06/09/17 21:06 Carvedilol (Coreg) 6.25 mg DAILY ORAL 06/10/17 09:00 07/10/17 08:59 06/10/17 09:02 Chlorhexidine Gluconate (Corinna-Hex 2%) 1 applic DAILY TOPIC 06/09/17 09:00 07/09/17 08:59 06/10/17 09:05 Hydralazine HCl (Apresoline) 25 mg Q8HR ORAL 06/06/17 22:00 07/06/17 21:59 06/10/17 06:35 Neomycin/ Polymyxin/ Bacitracin (Neosporin Oint 15gm) 1 applic TWICE A DAY TOPIC 06/07/17 18:00 06/12/17 09:01 06/10/17 09:06 Oxybutynin Chloride (Ditropan) 5 mg Q8HR ORAL 06/08/17 00:00 07/08/17 00:00 06/10/17 06:35 Pantoprazole (Protonix) 40 mg DAILY ORAL 06/10/17 09:00 07/10/17 08:59 06/10/17 09:00 Tamsulosin HCl (Flomax) 0.4 mg BEDTIME ORAL 06/06/17 21:00 07/06/17 20:59 06/09/17 21:05 Vitamin A/Vitamin D (A & D Oint) 1 applic EVERY 12 HOURS TOPIC 06/07/17 21:00 07/07/17 20:59 06/10/17 09:05 Blair Delacruz MD Jun 10, 2017 12:14
--- NOTE | 2017-06-10 13:52 | Infectious Diseases Prog Note ---
Assessment/Plan Problems: (1) Epistaxis Assessment & Plan: resolved , ENT is following. watch for recurrent bleeding (2) Sepsis Assessment & Plan: with leukocytosis , due to pyelonephritis from bladder outlet obstruction and urethral stricture , await blood culture, continue unasyn empirically , monitor WBC (3) Bilateral hydronephrosis Assessment & Plan: rule out prostate enlargement , urology eval is in progress (4) Acute renal failure Assessment & Plan: improved, due to the above, continue hydration, monitor renal function , avoid nephrotoxic , nephrology is following Subjective Constitutional: Reports: no symptoms HEENT: Reports: no symptoms Respiratory: Reports: no symptoms Breasts: Reports: no symptoms Cardiovascular: Reports: no symptoms Gastrointestinal/Abdominal: Reports: no symptoms Genitourinary: Reports: no symptoms Neurologic: Reports: no symptoms Psychiatric: Reports: no symptoms Skin: Reports: no symptoms Endocrine: Reports: no symptoms Hematologic: Reports: no symptoms Allergies: Coded Allergies: No Known Allergies (Unverified , 06/06/17) Objective Vital Signs Last 24 Hour Vital Signs Date Time Temp Pulse Resp B/P (MAP) Pulse Ox O2 Delivery O2 Flow Rate FiO2 06/10/17 13:46 115/65 06/10/17 09:02 100 100/70 06/10/17 08:00 89 06/10/17 08:00 97.6 100 18 100/70 94 Room Air 100 06/10/17 06:35 118/74 06/10/17 04:00 98 06/10/17 04:00 98.1 91 22 118/69 91 Room Air 91 06/10/17 00:00 98.6 81 20 120/61 92 Room Air 06/10/17 00:00 91 06/09/17 22:14 110/67 06/09/17 20:00 98.6 89 22 120/66 91 Room Air 06/09/17 20:00 88 06/09/17 16:00 85 06/09/17 16:00 97.8 84 19 108/64 94 Room Air Height (Feet): 6 Height (Inches): 1.00 Weight (Pounds): 190 General Appearance: WD/WN, no acute distress HEENT: normocephalic, atraumatic, anicteric, mucous membranes moist, PERRL Respiratory/Chest: chest wall non-tender, lungs clear, normal breath sounds, no respiratory distress, no accessory muscle use, respiratory distress Cardiovascular: normal peripheral pulses, normal rate, regular rhythm, no gallop/murmur, no JVD Abdomen: normal bowel sounds, soft, non tender, no organomegaly, non distended , no mass, no scars Extremities: no cyanosis, no clubbing Skin: no rash, no lesions, no ulcers Neurologic/Psychiatric: alert, oriented x 3, responsive Lymphatic: no neck adenopathy, no groin adenopathy Microbiology Date/Time Source Procedure Growth Status 06/07/17 16:00 Blood Blood Culture - Preliminary NO GROWTH AFTER 48 HOURS Resulted 06/07/17 15:40 Blood Blood Culture - Preliminary NO GROWTH AFTER 48 HOURS Resulted Laboratory Tests Test 06/10/17 06:35 White Blood Count 10.5 K/UL (4.8-10.8) # Red Blood Count 3.47 M/UL (4.70-6.10) L Hemoglobin 9.6 G/DL (14.2-18.0) L Hematocrit 29.5 % (42.0-52.0) L Mean Corpuscular Volume 85 FL (80-99) Mean Corpuscular Hemoglobin 27.6 PG (27.0-31.0) Mean Corpuscular Hemoglobin Concent 32.4 G/DL (32.0-36.0) Red Cell Distribution Width 13.0 % (11.6-14.8) Platelet Count 171 K/UL (150-450) Mean Platelet Volume 7.3 FL (6.5-10.1) Neutrophils (%) (Auto) 72.3 % (45.0-75.0) Lymphocytes (%) (Auto) 16.5 % (20.0-45.0) L Monocytes (%) (Auto) 9.6 % (1.0-10.0) Eosinophils (%) (Auto) 1.2 % (0.0-3.0) Basophils (%) (Auto) 0.4 % (0.0-2.0) Sodium Level 141 MMOL/L (136-145) Potassium Level 3.3 MMOL/L (3.5-5.1) L Chloride Level 102 MMOL/L (98-107) Carbon Dioxide Level 31 MMOL/L (21-32) Anion Gap 8 mmol/L (5-15) Blood Urea Nitrogen 48 mg/dL (7-18) H Creatinine 1.5 MG/DL (0.55-1.30) #H Estimat Glomerular Filtration Rate mL/min (>60) Glucose Level 176 MG/DL (74-106) H Calcium Level 7.1 MG/DL (8.5-10.1) L Current Medications Medications (Trade) Dose Ordered Sig/Maureen Route PRN Reason Start Time Stop Time Status Last Admin Dose Admin Acetaminophen (Tylenol) 650 mg Q4H PRN ORAL Mild Pain/Temp > 100.5 06/06/17 17:45 07/06/17 17:44 06/08/17 01:13 Ampicillin Sodium/ Sulbactam Sodium 3 gm/Sodium Chloride 110 ml @ 220 mls/hr Q6HR IVPB 06/10/17 15:00 06/17/17 14:59 Apixaban (Eliquis) 5 mg BID ORAL 06/08/17 18:30 07/08/17 18:29 06/10/17 09:05 Atorvastatin Calcium (Lipitor) 40 mg BEDTIME ORAL 06/06/17 21:00 07/06/17 20:59 06/09/17 21:06 Carvedilol (Coreg) 6.25 mg DAILY ORAL 06/10/17 09:00 07/10/17 08:59 06/10/17 09:02 Chlorhexidine Gluconate (Corinna-Hex 2%) 1 applic DAILY TOPIC 06/09/17 09:00 07/09/17 08:59 06/10/17 09:05 Hydralazine HCl (Apresoline) 25 mg Q8HR ORAL 06/06/17 22:00 07/06/17 21:59 06/10/17 13:46 Neomycin/ Polymyxin/ Bacitracin (Neosporin Oint 15gm) 1 applic TWICE A DAY TOPIC 06/07/17 18:00 06/12/17 09:01 06/10/17 09:06 Oxybutynin Chloride (Ditropan) 5 mg Q8HR ORAL 06/08/17 00:00 07/08/17 00:00 06/10/17 13:46 Pantoprazole (Protonix) 40 mg DAILY ORAL 06/10/17 09:00 07/10/17 08:59 06/10/17 09:00 Tamsulosin HCl (Flomax) 0.4 mg BEDTIME ORAL 06/06/17 21:00 07/06/17 20:59 06/09/17 21:05 Vitamin A/Vitamin D (A & D Oint) 1 applic EVERY 12 HOURS TOPIC 06/07/17 21:00 07/07/17 20:59 06/10/17 09:05 Molly Hernadez M.D. Jun 10, 2017 13:52
[2017-06-10] MEDS: Ampicillin/Sulbactam Sod 3 GM in NS 110 ML IVPB SCH ×2 (15:00→23:33)
[2017-06-10 16:00] VITALS: BP 110/63
[2017-06-10 20:00] VITALS: BP 129/71
[2017-06-10] MEDS: Tamsulosin 0.4mg cap ORAL SCH (20:30)
--- NOTE | 2017-06-10 21:14 | General Progress Note ---
Assessment/Plan Assessment/Plan ASSESSMENT AND RECOMMENDATIONS: 1. Deep venous thrombosis, which is extensive, of the right lower extremity. Have started patient on Eliquis 5 mg twice daily 2. Anemia secondary to hematuria. Currently mild, will monitor 3. Acute kidney injury, end-stage renal disease, on dialysis. 4. Epistaxis due to anticoagulation. Resolved Subjective Allergies: Coded Allergies: No Known Allergies (Unverified , 06/06/17) All Systems: reviewed and negative except above Subjective NAD, on eliquis Objective Last 24 Hour Vital Signs Date Time Temp Pulse Resp B/P (MAP) Pulse Ox O2 Delivery O2 Flow Rate FiO2 06/10/17 16:00 110 06/10/17 16:00 97.8 83 19 110/63 Room Air 06/10/17 13:46 115/65 06/10/17 12:00 97.9 74 19 115/65 Room Air 06/10/17 12:00 80 06/10/17 12:00 97.9 74 19 115/65 Room Air 06/10/17 09:02 100 100/70 06/10/17 08:00 89 06/10/17 08:00 97.6 100 18 100/70 94 Room Air 100 06/10/17 06:35 118/74 06/10/17 04:00 98 06/10/17 04:00 98.1 91 22 118/69 91 Room Air 91 06/10/17 00:00 98.6 81 20 120/61 92 Room Air 06/10/17 00:00 91 06/09/17 22:14 110/67 Intake and Output 06/09/17 06/10/17 19:00 07:00 Intake Total 236 ml Output Total 600 ml 200 ml Balance -364 ml -200 ml Intake Oral 236 ml Output Urine Total 600 ml 200 ml # Voids 2 Laboratory Tests 06/10/17 06:35: White Blood Count 10.5#, Red Blood Count 3.47L, Hemoglobin 9.6L, Hematocrit 29.5L, Mean Corpuscular Volume 85, Mean Corpuscular Hemoglobin 27.6, Mean Corpuscular Hemoglobin Concent 32.4, Red Cell Distribution Width 13.0, Platelet Count 171, Mean Platelet Volume 7.3, Neutrophils (%) (Auto) 72.3, Lymphocytes (% ) (Auto) 16.5L, Monocytes (%) (Auto) 9.6, Eosinophils (%) (Auto) 1.2, Basophils (%) (Auto) 0.4, Sodium Level 141, Potassium Level 3.3L, Chloride Level 102, Carbon Dioxide Level 31, Anion Gap 8, Blood Urea Nitrogen 48H, Creatinine 1.5#H , Estimat Glomerular Filtration Rate , Glucose Level 176H, Calcium Level 7.1L Height (Feet): 6 Height (Inches): 1.00 Weight (Pounds): 190 General Appearance: WD/WN EENT: normal ENT inspection Neck: normal alignment Cardiovascular: normal peripheral pulses Extremities: normal range of motion Edema: trace edema Yossi More Jun 10, 2017 21:14
--- NOTE | 2017-06-10 23:06 | Nephrology Progress Note ---
Assessment/Plan Problem List: (1) Acute on chronic kidney failure (2) Urinary retention due to benign prostatic hyperplasia (3) Sepsis (4) Bilateral hydronephrosis (5) HTN (hypertension) (6) HLD (hyperlipidemia) (7) Congestive heart failure Plan monitor renal function. hold HD for now. Monitor I/O. Subjective Subjective UOP better. Objective Objective Last 24 Hour Vital Signs Date Time Temp Pulse Resp B/P (MAP) Pulse Ox O2 Delivery O2 Flow Rate FiO2 06/10/17 22:44 123/71 06/10/17 20:00 96.8 81 20 129/71 95 06/10/17 16:00 110 06/10/17 16:00 97.8 83 19 110/63 Room Air 06/10/17 13:46 115/65 06/10/17 12:00 97.9 74 19 115/65 Room Air 06/10/17 12:00 80 06/10/17 12:00 97.9 74 19 115/65 Room Air 06/10/17 09:02 100 100/70 06/10/17 08:00 89 06/10/17 08:00 97.6 100 18 100/70 94 Room Air 100 06/10/17 06:35 118/74 06/10/17 04:00 98 06/10/17 04:00 98.1 91 22 118/69 91 Room Air 91 06/10/17 00:00 98.6 81 20 120/61 92 Room Air 06/10/17 00:00 91 Intake and Output 06/09/17 06/10/17 19:00 07:00 Intake Total 236 ml Output Total 600 ml 200 ml Balance -364 ml -200 ml Intake Oral 236 ml Output Urine Total 600 ml 200 ml # Voids 2 Laboratory Tests 06/10/17 06:35: White Blood Count 10.5#, Red Blood Count 3.47L, Hemoglobin 9.6L, Hematocrit 29.5L, Mean Corpuscular Volume 85, Mean Corpuscular Hemoglobin 27.6, Mean Corpuscular Hemoglobin Concent 32.4, Red Cell Distribution Width 13.0, Platelet Count 171, Mean Platelet Volume 7.3, Neutrophils (%) (Auto) 72.3, Lymphocytes (% ) (Auto) 16.5L, Monocytes (%) (Auto) 9.6, Eosinophils (%) (Auto) 1.2, Basophils (%) (Auto) 0.4, Sodium Level 141, Potassium Level 3.3L, Chloride Level 102, Carbon Dioxide Level 31, Anion Gap 8, Blood Urea Nitrogen 48H, Creatinine 1.5#H , Estimat Glomerular Filtration Rate , Glucose Level 176H, Calcium Level 7.1L Height (Feet): 6 Height (Inches): 1.00 Weight (Pounds): 190 General Appearance: no apparent distress Cardiovascular: normal rate, regular rhythm Respiratory/Chest: decreased breath sounds Abdomen: non tender, soft KANG HAMMER Jun 10, 2017 23:06
[2017-06-11] VITALS: BP 133/68
[2017-06-11 04:00] VITALS: BP 111/55
[2017-06-11] MEDS: HydrALAZINE 25mg tab ORAL SCH ×3 (05:32→21:52)
[2017-06-11] MEDS: Oxybutynin 5mg tab ORAL SCH ×3 (05:33→21:51)
[2017-06-11] MEDS: Ampicillin/Sulbactam Sod 3 GM in NS 110 ML IVPB SCH ×3 (05:34→17:46)
[2017-06-11 08:00] VITALS: BP 118/66
--- NOTE | 2017-06-11 08:43 | Pulmonology Progress Note ---
Assessment/Plan Assessment/Plan IMPRESSION: 1. Pulmonary edema. 2. Vascular congestion. 3. Hypoxemia requiring nasal oxygen. 4. Epistaxis. 5. DVT; on Eliquis DISCUSSION: Continue diuresis. Supplement oxygen via nasal cannula to correct hypoxemia. 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 Subjective Interval Events: None Constitutional: Reports: no symptoms HEENT: Repors: no symptoms Respiratory: Reports: no symptoms Cardiovascular: Reports: no symptoms Gastrointestinal/Abdominal: Reports: no symptoms Allergies: Coded Allergies: No Known Allergies (Unverified , 06/06/17) Objective Last 24 Hour Vital Signs Date Time Temp Pulse Resp B/P (MAP) Pulse Ox O2 Delivery O2 Flow Rate FiO2 06/11/17 05:32 101/54 06/11/17 04:00 92 06/11/17 04:00 98.2 82 20 111/55 92 06/11/17 00:00 97.0 85 20 133/68 95 06/10/17 22:44 123/71 06/10/17 20:00 85 06/10/17 20:00 96.8 81 20 129/71 95 06/10/17 16:00 110 06/10/17 16:00 97.8 83 19 110/63 Room Air 06/10/17 13:46 115/65 06/10/17 12:00 97.9 74 19 115/65 Room Air 06/10/17 12:00 80 06/10/17 12:00 97.9 74 19 115/65 Room Air 06/10/17 09:02 100 100/70 Intake and Output 06/10/17 06/11/17 19:00 07:00 Intake Total 236 ml 110 ml Output Total 400 ml 1200 ml Balance -164 ml -1090 ml Intake Oral 236 ml IV Total 110 ml Output Urine Total 400 ml 1200 ml # Voids 100 General Appearance: no acute distress HEENT: normocephalic Respiratory/Chest: chest wall non-tender, lungs clear Cardiovascular: normal peripheral pulses Current Medications Medications (Trade) Dose Ordered Sig/Maureen Route PRN Reason Start Time Stop Time Status Last Admin Dose Admin Acetaminophen (Tylenol) 650 mg Q4H PRN ORAL Mild Pain/Temp > 100.5 06/06/17 17:45 07/06/17 17:44 06/08/17 01:13 Ampicillin Sodium/ Sulbactam Sodium 3 gm/Sodium Chloride 110 ml @ 220 mls/hr Q6HR IVPB 06/10/17 15:00 06/17/17 14:59 06/11/17 05:34 Apixaban (Eliquis) 5 mg BID ORAL 06/08/17 18:30 07/08/17 18:29 06/10/17 17:44 Atorvastatin Calcium (Lipitor) 40 mg BEDTIME ORAL 06/06/17 21:00 07/06/17 20:59 06/10/17 20:30 Carvedilol (Coreg) 6.25 mg DAILY ORAL 06/10/17 09:00 07/10/17 08:59 06/10/17 09:02 Chlorhexidine Gluconate (Corinna-Hex 2%) 1 applic DAILY TOPIC 06/09/17 09:00 07/09/17 08:59 06/10/17 09:05 Hydralazine HCl (Apresoline) 25 mg Q8HR ORAL 06/06/17 22:00 07/06/17 21:59 06/10/17 22:44 Neomycin/ Polymyxin/ Bacitracin (Neosporin Oint 15gm) 1 applic TWICE A DAY TOPIC 06/07/17 18:00 06/12/17 09:01 06/10/17 17:44 Oxybutynin Chloride (Ditropan) 5 mg Q8HR ORAL 06/08/17 00:00 07/08/17 00:00 06/11/17 05:33 Pantoprazole (Protonix) 40 mg DAILY ORAL 06/10/17 09:00 07/10/17 08:59 06/10/17 09:00 Tamsulosin HCl (Flomax) 0.4 mg BEDTIME ORAL 06/06/17 21:00 07/06/17 20:59 06/10/17 20:30 Vitamin A/Vitamin D (A & D Oint) 1 applic EVERY 12 HOURS TOPIC 06/07/17 21:00 07/07/17 20:59 06/10/17 20:30 Blair Delacruz MD Jun 11, 2017 08:43
[2017-06-11] MEDS: Eliquis 2.5mg tablet ORAL SCH ×2 (09:41→17:46)
[2017-06-11] MEDS: Carvedilol 6.25mg Tab ORAL SCH (09:42)
[2017-06-11] MEDS: Dyna-Hex 2% Top Sol 2oz TOPIC SCH (09:43)
[2017-06-11] MEDS: Neosporin Oint 15gm TOPIC SCH ×2 (09:44→17:47)
[2017-06-11] MEDS: Vitamin A&D Oint 2oz Tube TOPIC SCH ×2 (09:44→20:57)
[2017-06-11 12:00] VITALS: BP 117/71
[2017-06-11] MEDS ORDERED: Tubing IV Secondary IV ONE (12:36)
[2017-06-11] MEDS ORDERED: NS 275ml ONE (12:36)
[2017-06-11] MEDS ORDERED: NS 500ML ONE (12:36)
[2017-06-11 14:44] LABS: BASOPHILS % (AUTO) 0.5 % (0.0-2.0); EOSINOPHILS % (AUTO) 1.2 % (0.0-3.0); HEMATOCRIT 29.8 % (42.0-52.0); HEMOGLOBIN 9.2 G/DL (14.2-18.0); LYMPHOCYTES % (AUTO) 15.9 % (20.0-45.0); MEAN CORPUSCULAR VOLUME 86 FL (80-99); MONOCYTES % (AUTO) 10.2 % (1.0-10.0); NEUTROPHILS % (AUTO) 72.2 % (45.0-75.0); PLATELET COUNT 196 K/UL (150-450); RED BLOOD COUNT 3.46 M/UL (4.70-6.10); RED CELL DISTRIBUTION WIDTH 12.7 % (11.6-14.8); WHITE BLOOD COUNT 9.2 K/UL (4.8-10.8)
[2017-06-11 14:46] LABS: ANION GAP 6 mmol/L (5-15); BLOOD UREA NITROGEN 26 mg/dL (7-18); CALCIUM 7.2 MG/DL (8.5-10.1); CARBON DIOXIDE 31 MMOL/L (21-32); CHLORIDE 103 MMOL/L (98-107); CREATININE 1.3 MG/DL (0.55-1.30); POTASSIUM 3.6 MMOL/L (3.5-5.1); SODIUM 139 MMOL/L (136-145)
--- NOTE | 2017-06-11 15:04 | Cardiology Report ---
APPROVED REPORT EKG Measurement Heart [id number] AL [id number] Sinus rhythm with premature atrial complexes Minimal voltage criteria for LVH, may be normal variant Borderline ECG
[2017-06-11 16:00] VITALS: BP 124/68
--- NOTE | 2017-06-11 17:05 | Infectious Diseases Prog Note ---
Assessment/Plan Problems: (1) Epistaxis Assessment & Plan: resolved , ENT is following. watch for recurrent bleeding (2) Sepsis Assessment & Plan: with leukocytosis , due to pyelonephritis from bladder outlet obstruction and urethral stricture , S/P cystoscopy with dilatation of the urethra and clot removal , blood culture is negative for 72 hours , will stop unasyn empirically , monitor WBC (3) Bilateral hydronephrosis Assessment & Plan: due to urethral stricture and bladder outlet obstruction , S/P cystoscopy . urology is following (4) Acute renal failure Assessment & Plan: improved, due to the above, continue hydration, monitor renal function , avoid nephrotoxic , nephrology is following Subjective Constitutional: Reports: no symptoms HEENT: Reports: no symptoms Respiratory: Reports: no symptoms Breasts: Reports: no symptoms Cardiovascular: Reports: no symptoms Gastrointestinal/Abdominal: Reports: no symptoms Genitourinary: Reports: no symptoms Neurologic: Reports: no symptoms Psychiatric: Reports: no symptoms Skin: Reports: no symptoms Endocrine: Reports: no symptoms Hematologic: Reports: no symptoms Musculoskeletal: Reports: no symptoms Allergies: Coded Allergies: No Known Allergies (Unverified , 06/06/17) Objective Vital Signs Last 24 Hour Vital Signs Date Time Temp Pulse Resp B/P (MAP) Pulse Ox O2 Delivery O2 Flow Rate FiO2 06/11/17 16:00 97.9 77 19 124/68 92 Room Air 06/11/17 13:00 117/71 06/11/17 12:00 97.9 102 19 117/71 91 Room Air 06/11/17 12:00 87 06/11/17 09:42 80 118/66 06/11/17 08:00 97.9 80 19 118/66 93 06/11/17 08:00 86 06/11/17 05:32 101/54 06/11/17 04:00 92 06/11/17 04:00 98.2 82 20 111/55 92 06/11/17 00:00 97.0 85 20 133/68 95 06/10/17 22:44 123/71 06/10/17 20:00 85 06/10/17 20:00 96.8 81 20 129/71 95 Height (Feet): 6 Height (Inches): 1.00 Weight (Pounds): 190 General Appearance: WD/WN, no acute distress HEENT: normocephalic, atraumatic, anicteric, mucous membranes moist, PERRL Respiratory/Chest: chest wall non-tender, lungs clear, normal breath sounds, no respiratory distress, no accessory muscle use Cardiovascular: normal peripheral pulses, normal rate, regular rhythm, no gallop/murmur, no JVD Abdomen: normal bowel sounds, soft, non tender, no organomegaly, non distended , no mass, no scars Genitourinary: normal external genitalia Extremities: no cyanosis, no clubbing Skin: no rash, no lesions, no ulcers Neurologic/Psychiatric: alert, responsive Laboratory Tests Test 06/11/17 14:21 White Blood Count 9.2 K/UL (4.8-10.8) Red Blood Count 3.46 M/UL (4.70-6.10) L Hemoglobin 9.2 G/DL (14.2-18.0) L Hematocrit 29.8 % (42.0-52.0) L Mean Corpuscular Volume 86 FL (80-99) Mean Corpuscular Hemoglobin 26.7 PG (27.0-31.0) L Mean Corpuscular Hemoglobin Concent 31.0 G/DL (32.0-36.0) L Red Cell Distribution Width 12.7 % (11.6-14.8) Platelet Count 196 K/UL (150-450) Mean Platelet Volume 7.3 FL (6.5-10.1) Neutrophils (%) (Auto) 72.2 % (45.0-75.0) Lymphocytes (%) (Auto) 15.9 % (20.0-45.0) L Monocytes (%) (Auto) 10.2 % (1.0-10.0) H Eosinophils (%) (Auto) 1.2 % (0.0-3.0) Basophils (%) (Auto) 0.5 % (0.0-2.0) Sodium Level 139 MMOL/L (136-145) Potassium Level 3.6 MMOL/L (3.5-5.1) Chloride Level 103 MMOL/L (98-107) Carbon Dioxide Level 31 MMOL/L (21-32) Anion Gap 6 mmol/L (5-15) Blood Urea Nitrogen 26 mg/dL (7-18) H Creatinine 1.3 MG/DL (0.55-1.30) Estimat Glomerular Filtration Rate mL/min (>60) Glucose Level 246 MG/DL (74-106) H Calcium Level 7.2 MG/DL (8.5-10.1) L Magnesium Level 2.2 MG/DL (1.8-2.4) Current Medications Medications (Trade) Dose Ordered Sig/Maureen Route PRN Reason Start Time Stop Time Status Last Admin Dose Admin Acetaminophen (Tylenol) 650 mg Q4H PRN ORAL Mild Pain/Temp > 100.5 06/06/17 17:45 07/06/17 17:44 06/08/17 01:13 Ampicillin Sodium/ Sulbactam Sodium 3 gm/Sodium Chloride 110 ml @ 220 mls/hr Q6HR IVPB 06/10/17 15:00 06/17/17 14:59 06/11/17 13:00 Apixaban (Eliquis) 5 mg BID ORAL 06/08/17 18:30 07/08/17 18:29 06/11/17 09:41 Atorvastatin Calcium (Lipitor) 40 mg BEDTIME ORAL 06/11/17 21:00 07/11/17 20:59 Carvedilol (Coreg) 6.25 mg DAILY ORAL 06/10/17 09:00 07/10/17 08:59 06/11/17 09:42 Chlorhexidine Gluconate (Corinna-Hex 2%) 1 applic DAILY TOPIC 06/09/17 09:00 07/09/17 08:59 06/11/17 09:43 Hydralazine HCl (Apresoline) 25 mg Q8HR ORAL 06/06/17 22:00 07/06/17 21:59 06/11/17 13:00 Neomycin/ Polymyxin/ Bacitracin (Neosporin Oint 15gm) 1 applic TWICE A DAY TOPIC 06/07/17 18:00 06/12/17 09:01 06/11/17 09:44 Oxybutynin Chloride (Ditropan) 5 mg Q8HR ORAL 06/08/17 00:00 07/08/17 00:00 06/11/17 13:00 Pantoprazole (Protonix) 40 mg DAILY ORAL 06/10/17 09:00 07/10/17 08:59 06/10/17 09:00 Tamsulosin HCl (Flomax) 0.4 mg BEDTIME ORAL 06/06/17 21:00 07/06/17 20:59 06/10/17 20:30 Vitamin A/Vitamin D (A & D Oint) 1 applic EVERY 12 HOURS TOPIC 06/07/17 21:00 07/07/17 20:59 06/11/17 09:44 Molly Hernadez M.D. Jun 11, 2017 17:05
[2017-06-11 20:37] VITALS: BP 126/69
--- NOTE | 2017-06-11 20:52 | General Progress Note ---
Assessment/Plan Assessment/Plan ASSESSMENT AND RECOMMENDATIONS: 1. Deep venous thrombosis, which is extensive, of the right lower extremity. Have started patient on Eliquis 5 mg twice daily 2. Anemia secondary to hematuria. Currently mild, will monitor 3. Acute kidney injury, end-stage renal disease, on dialysis. 4. Epistaxis due to anticoagulation. Resolved Subjective Allergies: Coded Allergies: No Known Allergies (Unverified , 06/06/17) All Systems: reviewed and negative except above Subjective NAD, on eliquis Objective Last 24 Hour Vital Signs Date Time Temp Pulse Resp B/P (MAP) Pulse Ox O2 Delivery O2 Flow Rate FiO2 06/11/17 20:47 Room Air 21 06/11/17 20:46 99 Room Air 21 06/11/17 20:37 97.6 83 19 126/69 97 Room Air 06/11/17 16:00 97.9 77 19 124/68 92 Room Air 06/11/17 16:00 80 06/11/17 13:00 117/71 06/11/17 12:00 97.9 102 19 117/71 91 Room Air 06/11/17 12:00 87 06/11/17 09:42 80 118/66 06/11/17 08:00 97.9 80 19 118/66 93 06/11/17 08:00 86 06/11/17 05:32 101/54 06/11/17 04:00 92 06/11/17 04:00 98.2 82 20 111/55 92 06/11/17 00:00 97.0 85 20 133/68 95 06/10/17 22:44 123/71 Intake and Output 06/10/17 06/11/17 19:00 07:00 Intake Total 236 ml 110 ml Output Total 400 ml 1200 ml Balance -164 ml -1090 ml Intake Oral 236 ml IV Total 110 ml Output Urine Total 400 ml 1200 ml # Voids 100 Laboratory Tests 06/11/17 14:21: White Blood Count 9.2, Red Blood Count 3.46L, Hemoglobin 9.2L, Hematocrit 29.8L , Mean Corpuscular Volume 86, Mean Corpuscular Hemoglobin 26.7L, Mean Corpuscular Hemoglobin Concent 31.0L, Red Cell Distribution Width 12.7, Platelet Count 196, Mean Platelet Volume 7.3, Neutrophils (%) (Auto) 72.2, Lymphocytes (%) (Auto) 15.9L, Monocytes (%) (Auto) 10.2H, Eosinophils (%) (Auto ) 1.2, Basophils (%) (Auto) 0.5, Sodium Level 139, Potassium Level 3.6, Chloride Level 103, Carbon Dioxide Level 31, Anion Gap 6, Blood Urea Nitrogen 26H, Creatinine 1.3, Estimat Glomerular Filtration Rate , Glucose Level 246H, Calcium Level 7.2L, Magnesium Level 2.2 Height (Feet): 6 Height (Inches): 1.00 Weight (Pounds): 190 General Appearance: no apparent distress EENT: normal ENT inspection Neck: normal alignment Cardiovascular: normal peripheral pulses Extremities: normal range of motion Edema: no edema noted Pedal (L), no edema noted Pedal (R) 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
[2017-06-11] MEDS: Atorvastatin 20mg tab ORAL SCH (20:57)
[2017-06-11] MEDS: Tamsulosin 0.4mg cap ORAL SCH (20:57)
--- NOTE | 2017-06-11 23:26 | Nephrology Progress Note ---
Assessment/Plan Problem List: (1) Sepsis (2) Acute on chronic kidney failure (3) Urinary retention due to benign prostatic hyperplasia (4) Bilateral hydronephrosis (5) HLD (hyperlipidemia) (6) HTN (hypertension) (7) Congestive heart failure Plan No more HD. d/c line soon. Monitor renal function. Monitor I/O. Subjective Subjective better. no new c/o. good uop. Objective Objective Last 24 Hour Vital Signs Date Time Temp Pulse Resp B/P (MAP) Pulse Ox O2 Delivery O2 Flow Rate FiO2 06/11/17 21:52 126/69 06/11/17 20:47 Room Air 21 06/11/17 20:46 99 Room Air 21 06/11/17 20:37 97.6 83 19 126/69 97 Room Air 06/11/17 16:00 97.9 77 19 124/68 92 Room Air 06/11/17 16:00 80 06/11/17 13:00 117/71 06/11/17 12:00 97.9 102 19 117/71 91 Room Air 06/11/17 12:00 87 06/11/17 09:42 80 118/66 06/11/17 08:00 97.9 80 19 118/66 93 06/11/17 08:00 86 06/11/17 05:32 101/54 06/11/17 04:00 92 06/11/17 04:00 98.2 82 20 111/55 92 06/11/17 00:00 97.0 85 20 133/68 95 Intake and Output 06/10/17 06/11/17 19:00 07:00 Intake Total 236 ml 110 ml Output Total 400 ml 1200 ml Balance -164 ml -1090 ml Intake Oral 236 ml IV Total 110 ml Output Urine Total 400 ml 1200 ml # Voids 100 Laboratory Tests 06/11/17 14:21: White Blood Count 9.2, Red Blood Count 3.46L, Hemoglobin 9.2L, Hematocrit 29.8L , Mean Corpuscular Volume 86, Mean Corpuscular Hemoglobin 26.7L, Mean Corpuscular Hemoglobin Concent 31.0L, Red Cell Distribution Width 12.7, Platelet Count 196, Mean Platelet Volume 7.3, Neutrophils (%) (Auto) 72.2, Lymphocytes (%) (Auto) 15.9L, Monocytes (%) (Auto) 10.2H, Eosinophils (%) (Auto ) 1.2, Basophils (%) (Auto) 0.5, Sodium Level 139, Potassium Level 3.6, Chloride Level 103, Carbon Dioxide Level 31, Anion Gap 6, Blood Urea Nitrogen 26H, Creatinine 1.3, Estimat Glomerular Filtration Rate , Glucose Level 246H, Calcium Level 7.2L, Magnesium Level 2.2 Height (Feet): 6 Height (Inches): 1.00 Weight (Pounds): 190 General Appearance: no apparent distress Cardiovascular: normal rate, regular rhythm Respiratory/Chest: decreased breath sounds Abdomen: non tender, soft KANG HAMMER Jun 11, 2017 23:26
[2017-06-12] MEDS: Ampicillin/Sulbactam Sod 3 GM in NS 110 ML IVPB SCH ×3 (00:05→12:34)
[2017-06-12 00:54] VITALS: BP 124/79
--- NOTE | 2017-06-12 03:45 | Progress Note ---
DATE: 06/10/2017 CARDIOLOGY PROGRESS NOTE Covered for Dr. Christy. SUBJECTIVE: The patient continues to have episodes of nonsustained ventricular ectopy. Congestion improving. He remains on anticoagulation for an acute DVT and nose bleeding has been resolved. OBJECTIVE: VITAL SIGNS: Blood pressure 115/65, pulse 89, respiratory rate 18 and afebrile. CHEST: Tender clear breath sounds. HEART: Regular rhythm and rate. Normal S1 and S2 with a fourth heart sound. ABDOMEN: Soft. EXTREMITIES: No edema. LABORATORY AND DIAGNOSTIC DATA: White count 10 and hemoglobin 9.6. Potassium 3.3, BUN 48, and creatinine 1.5. Magnesium pending. IMPRESSION: 1. Acute myocardial infarction. 2. Acute renal failure, recovering. 3. Nonsustained ventricular tachycardia. Normal left ventricular ejection fraction by echocardiogram. 4. Acute deep vein thrombosis and possible pulmonary embolic event. 5. Acute on chronic diastolic congestive heart failure, clinically compensated. 6. Condition remains critical and guarded PLAN: 1. Continue full anticoagulation. 2. Advance beta-blockade. 3. Replace potassium. 4. Monitor volume status. 5. Cardiorenal parameters. 6. Nasal oxygen. 7. No plans for cardiac catheterization in this clinical setting with poor performance status and normal ejection fraction. 8. Continue cardiac monitoring Lucio Jackson M.D. DR: BAR JOB#: [id number] CC: DONELL
--- NOTE | 2017-06-12 04:00 | Progress Note ---
DATE: 06/11/2017 CARDIOLOGY PROGRESS NOTE SUBJECTIVE: The patient without shortness of breath or chest pain. The patient has episodes of nonsustained ventricular tachycardia that are asymptomatic. The cardiac telemetry was reviewed in detail with nursing staff. OBJECTIVE: VITAL SIGNS: Blood pressure 126/69, pulse 83, respirations 19 and afebrile. LUNGS: Coarse breath sounds. HEART: Regular rhythm and rate. Normal S1 and S2. ABDOMEN: Soft. EXTREMITIES: No edema. LABORATORY AND DIAGNOSTIC DATA: Magnesium 2.2. Potassium 3.6. White count 9.2 and hemoglobin 9.2. IMPRESSION: 1. Status post acute myocardial infarction. 2. Nonsustained ventricular tachycardia. 3. Acute deep vein thrombosis and possible secondary pulmonary embolic event. 4. Epistaxis, resolved. 5. Acute on chronic renal failure, now on hemodialysis. PLAN: 1. Continue full anticoagulation. 2. Advance beta-calvin. 3. Hemodialysis with ultrafiltration. 4. No plan for cardiac cath due to poor performance status. 5. Continue cardiac monitoring; follow up lytes/Mg. Crit care 47min Lucio Jackson M.D. DR: BAR JOB#: [id number] CC: DONELL
[2017-06-12 04:31] VITALS: BP 121/79
[2017-06-12] MEDS: Oxybutynin 5mg tab ORAL SCH ×3 (05:57→21:52)
[2017-06-12] MEDS: HydrALAZINE 25mg tab ORAL SCH ×3 (05:57→21:52)
[2017-06-12 07:51] LABS: ANION GAP 6 mmol/L (5-15); BLOOD UREA NITROGEN 16 mg/dL (7-18); CALCIUM 6.9 MG/DL (8.5-10.1); CARBON DIOXIDE 32 MMOL/L (21-32); CHLORIDE 105 MMOL/L (98-107); POTASSIUM 3.6 MMOL/L (3.5-5.1); SODIUM 142 MMOL/L (136-145)
[2017-06-12 08:00] VITALS: BP 127/64
[2017-06-12 08:07] LABS: CHOLESTEROL 101 MG/DL (< 200); HDL CHOLESTEROL 18 MG/DL (40-60); TRIGLYCERIDES 83 MG/DL (30-150)
[2017-06-12] MEDS: Carvedilol 12.5mg tab ORAL SCH (09:03)
[2017-06-12] MEDS: Eliquis 2.5mg tablet ORAL SCH ×2 (09:04→17:43)
[2017-06-12] MEDS: Dyna-Hex 2% Top Sol 2oz TOPIC SCH (09:04)
[2017-06-12] MEDS: Vitamin A&D Oint 2oz Tube TOPIC SCH ×2 (09:08→21:53)
[2017-06-12] MEDS: Neosporin Oint 15gm TOPIC SCH (09:08)
[2017-06-12 12:00] VITALS: BP_SYST 108; BP_DIAS 54; BP_DIAS 58
--- NOTE | 2017-06-12 12:38 | Infectious Diseases Prog Note ---
Assessment/Plan Problems: (1) Epistaxis Assessment & Plan: resolved , ENT is following. watch for recurrent bleeding (2) Sepsis Assessment & Plan: with leukocytosis , due to pyelonephritis from bladder outlet obstruction and urethral stricture , S/P cystoscopy with dilatation of the urethra and clot removal , blood culture is negative for 72 hours , will stop unasyn empirically , monitor WBC (3) Bilateral hydronephrosis Assessment & Plan: due to urethral stricture and bladder outlet obstruction , S/P cystoscopy . urology is following (4) Acute renal failure Assessment & Plan: improved, due to the above, continue hydration, monitor renal function , avoid nephrotoxic , nephrology is following (5) Elevated troponin Assessment & Plan: rule out ACS , cardiology is following Subjective Constitutional: Reports: no symptoms HEENT: Reports: no symptoms Respiratory: Reports: no symptoms Breasts: Reports: no symptoms Cardiovascular: Reports: no symptoms Gastrointestinal/Abdominal: Reports: no symptoms Genitourinary: Reports: no symptoms Neurologic: Reports: no symptoms Psychiatric: Reports: no symptoms Skin: Reports: no symptoms Endocrine: Reports: no symptoms Hematologic: Reports: no symptoms Musculoskeletal: Reports: no symptoms Allergies: Coded Allergies: No Known Allergies (Unverified , 06/06/17) Objective Vital Signs Last 24 Hour Vital Signs Date Time Temp Pulse Resp B/P (MAP) Pulse Ox O2 Delivery O2 Flow Rate FiO2 06/12/17 10:03 Room Air 06/12/17 10:03 99 Room Air 06/12/17 09:03 81 127/64 06/12/17 09:00 84 06/12/17 05:57 124/77 06/12/17 04:31 97.7 81 19 121/79 96 Room Air 06/12/17 04:00 82 06/12/17 00:54 97.6 82 19 124/79 95 Room Air 06/12/17 00:00 83 06/11/17 21:52 126/69 06/11/17 20:47 Room Air 06/11/17 20:46 99 Room Air 21 06/11/17 20:37 97.6 83 19 126/69 97 Room Air 06/11/17 20:00 84 06/11/17 16:00 97.9 77 19 124/68 92 Room Air 06/11/17 16:00 80 06/11/17 13:00 117/71 Height (Feet): 6 Height (Inches): 1.00 Weight (Pounds): 190 General Appearance: WD/WN, no acute distress HEENT: normocephalic, atraumatic, anicteric, mucous membranes moist, PERRL Respiratory/Chest: chest wall non-tender, lungs clear, normal breath sounds, no respiratory distress, no accessory muscle use Cardiovascular: normal peripheral pulses, normal rate, regular rhythm, no gallop/murmur, no JVD Abdomen: normal bowel sounds, soft, non tender, no organomegaly, non distended , no mass, no scars Extremities: no cyanosis, no clubbing Skin: no rash, no lesions, no ulcers Neurologic/Psychiatric: alert, oriented x 3, responsive Laboratory Tests Test 06/11/17 14:21 06/12/17 05:15 White Blood Count 9.2 K/UL (4.8-10.8) Red Blood Count 3.46 M/UL (4.70-6.10) L Hemoglobin 9.2 G/DL (14.2-18.0) L Hematocrit 29.8 % (42.0-52.0) L Mean Corpuscular Volume 86 FL (80-99) Mean Corpuscular Hemoglobin 26.7 PG (27.0-31.0) L Mean Corpuscular Hemoglobin Concent 31.0 G/DL (32.0-36.0) L Red Cell Distribution Width 12.7 % (11.6-14.8) Platelet Count 196 K/UL (150-450) Mean Platelet Volume 7.3 FL (6.5-10.1) Neutrophils (%) (Auto) 72.2 % (45.0-75.0) Lymphocytes (%) (Auto) 15.9 % (20.0-45.0) L Monocytes (%) (Auto) 10.2 % (1.0-10.0) H Eosinophils (%) (Auto) 1.2 % (0.0-3.0) Basophils (%) (Auto) 0.5 % (0.0-2.0) Sodium Level 139 MMOL/L (136-145) 142 MMOL/L (136-145) Potassium Level 3.6 MMOL/L (3.5-5.1) 3.6 MMOL/L (3.5-5.1) Chloride Level 103 MMOL/L (98-107) 105 MMOL/L (98-107) Carbon Dioxide Level 31 MMOL/L (21-32) 32 MMOL/L (21-32) Anion Gap 6 mmol/L (5-15) 6 mmol/L (5-15) Blood Urea Nitrogen 26 mg/dL (7-18) H 16 mg/dL (7-18) Creatinine 1.3 MG/DL (0.55-1.30) 1.0 MG/DL (0.55-1.30) Estimat Glomerular Filtration Rate mL/min (>60) mL/min (>60) Glucose Level 246 MG/DL (74-106) H 155 MG/DL (74-106) H Calcium Level 7.2 MG/DL (8.5-10.1) L 6.9 MG/DL (8.5-10.1) L Magnesium Level 2.2 MG/DL (1.8-2.4) 1.9 MG/DL (1.8-2.4) Pro-B-Type Natriuretic Peptide 1343 pg/mL (0-125) H Triglycerides Level 83 MG/DL (30-150) Cholesterol Level 101 MG/DL (< 200) LDL Cholesterol 64 mg/dL (<100) HDL Cholesterol 18 MG/DL (40-60) L Cholesterol/HDL Ratio 5.6 (3.3-4.4) H Current Medications Medications (Trade) Dose Ordered Sig/Maureen Route PRN Reason Start Time Stop Time Status Last Admin Dose Admin Acetaminophen (Tylenol) 650 mg Q4H PRN ORAL Mild Pain/Temp > 100.5 06/06/17 17:45 07/06/17 17:44 06/08/17 01:13 Ampicillin Sodium/ Sulbactam Sodium 3 gm/Sodium Chloride 110 ml @ 220 mls/hr Q6HR IVPB 06/10/17 15:00 06/17/17 14:59 06/12/17 12:34 Apixaban (Eliquis) 5 mg BID ORAL 06/08/17 18:30 07/08/17 18:29 06/12/17 09:04 Atorvastatin Calcium (Lipitor) 40 mg BEDTIME ORAL 06/11/17 21:00 07/11/17 20:59 06/11/17 20:57 Carvedilol (Coreg) 12.5 mg DAILY ORAL 06/12/17 09:00 07/12/17 08:59 06/12/17 09:03 Chlorhexidine Gluconate (Corinna-Hex 2%) 1 applic DAILY TOPIC 06/09/17 09:00 07/09/17 08:59 06/12/17 09:04 Hydralazine HCl (Apresoline) 25 mg Q8HR ORAL 06/06/17 22:00 07/06/17 21:59 06/12/17 05:57 Oxybutynin Chloride (Ditropan) 5 mg Q8HR ORAL 06/08/17 00:00 07/08/17 00:00 06/12/17 05:57 Pantoprazole (Protonix) 40 mg DAILY ORAL 06/10/17 09:00 07/10/17 08:59 06/12/17 09:03 Tamsulosin HCl (Flomax) 0.4 mg BEDTIME ORAL 06/06/17 21:00 07/06/17 20:59 06/11/17 20:57 Vitamin A/Vitamin D (A & D Oint) 1 applic EVERY 12 HOURS TOPIC 06/07/17 21:00 07/07/17 20:59 06/12/17 09:08 Molly Hernadez M.D. Jun 12, 2017 12:38
[2017-06-12 16:00] VITALS: BP 121/75
[2017-06-12] MEDS ORDERED: Tubing IV Secondary IV ONE (17:35)
[2017-06-12] MEDS ORDERED: NS 275ml ONE (17:35)
--- NOTE | 2017-06-12 17:50 | Pulmonology Progress Note ---
Assessment/Plan Assessment/Plan IMPRESSION: 1. Pulmonary edema. 2. Vascular congestion. 3. Hypoxemia requiring nasal oxygen. 4. Epistaxis. 5. DVT; on Eliquis DISCUSSION: Continue diuresis. Supplement oxygen via nasal cannula to correct hypoxemia. 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 Subjective Interval Events: No new pulm events Constitutional: Reports: no symptoms HEENT: Repors: no symptoms Respiratory: Reports: no symptoms Cardiovascular: Reports: no symptoms Gastrointestinal/Abdominal: Reports: no symptoms Allergies: Coded Allergies: No Known Allergies (Unverified , 06/06/17) Objective Last 24 Hour Vital Signs Date Time Temp Pulse Resp B/P (MAP) Pulse Ox O2 Delivery O2 Flow Rate FiO2 06/12/17 14:19 127/64 06/12/17 14:17 Room Air 21 06/12/17 14:17 98 Room Air 21 06/12/17 12:00 72 06/12/17 12:00 74 18 108/54 93 Room Air 06/12/17 10:03 Room Air 21 06/12/17 10:03 99 Room Air 21 06/12/17 09:03 81 127/64 06/12/17 09:00 84 06/12/17 08:00 95.9 81 19 127/64 93 Room Air 06/12/17 05:57 124/77 06/12/17 04:31 97.7 81 19 121/79 96 Room Air 06/12/17 04:00 82 06/12/17 00:54 97.6 82 19 124/79 95 Room Air 06/12/17 00:00 83 06/11/17 21:52 126/69 06/11/17 20:47 Room Air 21 06/11/17 20:46 99 Room Air 21 06/11/17 20:37 97.6 83 19 126/69 97 Room Air 06/11/17 20:00 84 Intake and Output 06/11/17 06/12/17 19:00 07:00 Intake Total 692 ml Output Total 1050 ml 1600 ml Balance -358 ml -1600 ml Intake Oral 472 ml IV Total 220 ml Output Urine Total 1050 ml 1600 ml # Voids 1 General Appearance: no acute distress HEENT: normocephalic Respiratory/Chest: chest wall non-tender, lungs clear Cardiovascular: normal peripheral pulses, normal rate Laboratory Tests 06/12/17 05:15: Sodium Level 142, Potassium Level 3.6, Chloride Level 105, Carbon Dioxide Level 32, Anion Gap 6, Blood Urea Nitrogen 16, Creatinine 1.0, Estimat Glomerular Filtration Rate , Glucose Level 155H, Calcium Level 6.9L, Magnesium Level 1.9, Pro-B-Type Natriuretic Peptide 1343H, Triglycerides Level 83, Cholesterol Level 101, LDL Cholesterol 64, HDL Cholesterol 18L, Cholesterol/HDL Ratio 5.6H Current Medications Medications (Trade) Dose Ordered Sig/Maureen Route PRN Reason Start Time Stop Time Status Last Admin Dose Admin Acetaminophen (Tylenol) 650 mg Q4H PRN ORAL Mild Pain/Temp > 100.5 06/06/17 17:45 07/06/17 17:44 06/08/17 01:13 Apixaban (Eliquis) 5 mg BID ORAL 06/08/17 18:30 07/08/17 18:29 06/12/17 17:43 Atorvastatin Calcium (Lipitor) 40 mg BEDTIME ORAL 06/11/17 21:00 07/11/17 20:59 06/11/17 20:57 Carvedilol (Coreg) 12.5 mg DAILY ORAL 06/12/17 09:00 07/12/17 08:59 06/12/17 09:03 Chlorhexidine Gluconate (Ocrinna-Hex 2%) 1 applic DAILY TOPIC 06/09/17 09:00 07/09/17 08:59 06/12/17 09:04 Hydralazine HCl (Apresoline) 25 mg Q8HR ORAL 06/06/17 22:00 07/06/17 21:59 06/12/17 14:19 Oxybutynin Chloride (Ditropan) 5 mg Q8HR ORAL 06/08/17 00:00 07/08/17 00:00 06/12/17 14:19 Pantoprazole (Protonix) 40 mg DAILY ORAL 06/10/17 09:00 07/10/17 08:59 06/12/17 09:03 Tamsulosin HCl (Flomax) 0.4 mg BEDTIME ORAL 06/06/17 21:00 07/06/17 20:59 06/11/17 20:57 Vitamin A/Vitamin D (A & D Oint) 1 applic EVERY 12 HOURS TOPIC 06/07/17 21:00 07/07/17 20:59 06/12/17 09:08 Blair Delacruz MD Jun 12, 2017 17:50
--- NOTE | 2017-06-12 18:45 | Progress Note ---
DATE: 06/12/2017 CARDIOLOGY PROGRESS NOTE SUBJECTIVE: The patient remains on full anticoagulation due to an acute DVT. He continues to have episodes of nonsustained ventricular tachycardia although less frequent. No evidence of chest pain or shortness of breath. OBJECTIVE: VITAL SIGNS: Blood pressure 108/54, pulse 74, respirations 18, and afebrile. LUNGS: Good breath sounds. Few rhonchi. HEART: Regular rhythm and rate. Normal S1 and S2 with a fourth heart sound. ABDOMEN: Soft. EXTREMITIES: No edema. LABORATORY AND DIAGNOSTIC STUDIES: Potassium 3.6 and magnesium 1.9. LDL cholesterol 64. Pro-natriuretic peptide 1300. IMPRESSION: 1. Acute myocardial infarction. 2. Acute myocardial ischemia. 3. Nonsustained ventricular tachycardia. 4. Acute on chronic diastolic congestive heart failure. PLAN: 1. Additional potassium. 2. Diuresis. 3. Continue beta-calvin with the dose recently advanced. 4. Full anticoagulation. 5. Medical therapy with the plans for invasive interventions in view of poor performance status. Lucio Jackson M.D. DR: KITA JOB#: [id number] CC:
--- NOTE | 2017-06-12 18:57 | General Progress Note ---
Assessment/Plan Assessment/Plan ASSESSMENT AND RECOMMENDATIONS: 1. Deep venous thrombosis, which is extensive, of the right lower extremity. Have started patient on Eliquis 5 mg twice daily 2. Anemia secondary to hematuria. Currently mild, will monitor. Resolved 3. Acute kidney injury, end-stage renal disease, on dialysis. 4. Epistaxis due to anticoagulation. Resolved Subjective Allergies: Coded Allergies: No Known Allergies (Unverified , 06/06/17) All Systems: reviewed and negative except above Subjective no evidence of bleeding, no pain reported Objective Last 24 Hour Vital Signs Date Time Temp Pulse Resp B/P (MAP) Pulse Ox O2 Delivery O2 Flow Rate FiO2 06/12/17 16:00 97.7 76 19 121/75 94 Room Air 06/12/17 14:19 127/64 06/12/17 14:17 Room Air 21 06/12/17 14:17 98 Room Air 21 06/12/17 12:00 72 06/12/17 12:00 97.9 74 18 108/58 93 Room Air 06/12/17 10:03 Room Air 21 06/12/17 10:03 99 Room Air 21 06/12/17 09:03 81 127/64 06/12/17 09:00 84 06/12/17 08:00 95.9 81 19 127/64 93 Room Air 06/12/17 05:57 124/77 06/12/17 04:31 97.7 81 19 121/79 96 Room Air 06/12/17 04:00 82 06/12/17 00:54 97.6 82 19 124/79 95 Room Air 06/12/17 00:00 83 06/11/17 21:52 126/69 06/11/17 20:47 Room Air 21 06/11/17 20:46 99 Room Air 06/11/17 20:37 97.6 83 19 126/69 97 Room Air 06/11/17 20:00 84 Intake and Output 06/11/17 06/12/17 19:00 07:00 Intake Total 692 ml Output Total 1050 ml 1600 ml Balance -358 ml -1600 ml Intake Oral 472 ml IV Total 220 ml Output Urine Total 1050 ml 1600 ml # Voids 1 Laboratory Tests 06/12/17 05:15: Sodium Level 142, Potassium Level 3.6, Chloride Level 105, Carbon Dioxide Level 32, Anion Gap 6, Blood Urea Nitrogen 16, Creatinine 1.0, Estimat Glomerular Filtration Rate , Glucose Level 155H, Calcium Level 6.9L, Magnesium Level 1.9, Pro-B-Type Natriuretic Peptide 1343H, Triglycerides Level 83, Cholesterol Level 101, LDL Cholesterol 64, HDL Cholesterol 18L, Cholesterol/HDL Ratio 5.6H Height (Feet): 6 Height (Inches): 1.00 Weight (Pounds): 190 General Appearance: no apparent distress EENT: normal ENT inspection Neck: normal alignment Cardiovascular: normal peripheral pulses Neurologic: edge kitter II-XII grossly normal Skin: normal pigmentation Yossi More Jun 12, 2017 18:57
--- NOTE | 2017-06-12 19:00 | History and Physical Report ---
DATE OF ADMISSION: 06/06/2017 HISTORY OF PRESENT ILLNESS: The patient is a 76-year-old male, currently sitting in the bed, comfortable, came to the emergency room for acute renal failure, GI bleed and positive troponin. The patient is currently alert and awake. No fever. No chills. PAST MEDICAL HISTORY: Significant for hypertension and renal insufficiency. MEDICATIONS: See the list. ALLERGIES: NKA. PHYSICAL EXAMINATION: GENERAL: This is an elderly male, who is currently in bed, comfortable. VITAL SIGNS: Blood pressure is 130/70, pulse 74, and respirations 18. No fever. HEENT: NAD. CHEST: Bilaterally clear. CARDIOVASCULAR: Regular rhythm. No gallop. No murmur. ABDOMEN: Soft. EXTREMITIES: CCE. NEUROLOGICAL: The patient has no focal deficit. ASSESSMENT: 1. Acute renal failure, improving. 2. Gastrointestinal bleed. 3. . PLAN: Cardiology and Nephrology on the case. Continue current treatment. Tolu Noel M.D. DR: CUBA JOB#: [id number] CC:
[2017-06-12 20:00] VITALS: BP_SYST 121; BP_SYST 132; BP_DIAS 75; BP_DIAS 76
--- NOTE | 2017-06-12 21:39 | Nephrology Progress Note ---
Assessment/Plan Problem List: (1) Bilateral hydronephrosis (2) Renal cyst (3) Acute renal failure (4) Congestive heart failure (5) Urinary retention due to benign prostatic hyperplasia (6) HLD (hyperlipidemia) (7) HTN (hypertension) (8) Epistaxis (9) Elevated troponin (10) Acute on chronic kidney failure Plan Hold HD, renal function stable monitor lites and correct prn Continue allen per urology Pain management prn DVT prophylaxis PPI daily AM labs Subjective Constitutional: Denies: no symptoms, chills, diaphoresis, fever, malaise, weakness, other HEENT: Denies: no symptoms, eye pain, blurred vision, tearing, double vision, ear pain, ear discharge, nose pain, nose congestion, throat pain, throat swelling, mouth pain, mouth swelling, other Neurologic/Psychiatric: Denies: no symptoms, anxiety, depressed, emotional problems, headache, numbness, paresthesia, pre-existing deficit, seizure, tingling, tremors, weakness, other Subjective In bed, denies discomfort at this time, adequate urine output via allen. Objective Objective Last 24 Hour Vital Signs Date Time Temp Pulse Resp B/P (MAP) Pulse Ox O2 Delivery O2 Flow Rate FiO2 06/12/17 16:00 79 06/12/17 16:00 97.7 76 19 121/75 94 Room Air 06/12/17 14:19 127/64 06/12/17 14:17 Room Air 06/12/17 14:17 98 Room Air 06/12/17 12:00 72 06/12/17 12:00 97.9 74 18 108/58 93 Room Air 06/12/17 10:03 Room Air 06/12/17 10:03 99 Room Air 21 06/12/17 09:03 81 127/64 06/12/17 09:00 84 06/12/17 08:00 95.9 81 19 127/64 93 Room Air 06/12/17 05:57 124/77 06/12/17 04:31 97.7 81 19 121/79 96 Room Air 06/12/17 04:00 82 06/12/17 00:54 97.6 82 19 124/79 95 Room Air 06/12/17 00:00 83 06/11/17 21:52 126/69 Intake and Output 06/11/17 06/12/17 19:00 07:00 Intake Total 692 ml Output Total 1050 ml 1600 ml Balance -358 ml -1600 ml Intake Oral 472 ml IV Total 220 ml Output Urine Total 1050 ml 1600 ml # Voids 1 Laboratory Tests 06/12/17 05:15: Sodium Level 142, Potassium Level 3.6, Chloride Level 105, Carbon Dioxide Level 32, Anion Gap 6, Blood Urea Nitrogen 16, Creatinine 1.0, Estimat Glomerular Filtration Rate , Glucose Level 155H, Calcium Level 6.9L, Magnesium Level 1.9, Pro-B-Type Natriuretic Peptide 1343H, Triglycerides Level 83, Cholesterol Level 101, LDL Cholesterol 64, HDL Cholesterol 18L, Cholesterol/HDL Ratio 5.6H Height (Feet): 6 Height (Inches): 1.00 Weight (Pounds): 190 General Appearance: no apparent distress, alert EENT: normal ENT inspection Neck: normal alignment, supple, normal inspection Cardiovascular: normal rate, regular rhythm Respiratory/Chest: lungs clear, no respiratory distress Abdomen: soft, no organomegaly Genitourinary/Rectal: other - allen Extremities: non-tender, normal inspection Neurologic: alert, oriented x 3, responsive Nathaly Smalls N.P. Jun 12, 2017 21:39
[2017-06-12] MEDS: Tamsulosin 0.4mg cap ORAL SCH (21:52)
[2017-06-12] MEDS: Atorvastatin 20mg tab ORAL SCH (21:53)
[2017-06-13] VITALS: BP 127/65
[2017-06-13 04:00] VITALS: BP 119/68
[2017-06-13] MEDS: Oxybutynin 5mg tab ORAL SCH ×3 (06:10→21:37)
[2017-06-13] MEDS: HydrALAZINE 25mg tab ORAL SCH ×3 (06:10→21:37)
[2017-06-13 08:00] VITALS: BP 125/77
[2017-06-13 09:03] LABS: ALANINE AMINOTRANSFERASE 18 U/L (12-78); ALBUMIN 1.9 G/DL (3.4-5.0); ALBUMIN/GLOBULIN RATIO 0.4 (1.0-2.7); ALKALINE PHOSPHATASE 60 U/L (46-116); ANION GAP 6 mmol/L (5-15); ASPARTATE AMINO TRANSFERASE 24 U/L (15-37); BILIRUBIN,TOTAL 0.6 MG/DL (0.2-1.0); BLOOD UREA NITROGEN 12 mg/dL (7-18); CALCIUM 7.3 MG/DL (8.5-10.1); CARBON DIOXIDE 29 MMOL/L (21-32); CHLORIDE 105 MMOL/L (98-107); POTASSIUM 3.8 MMOL/L (3.5-5.1); SODIUM 140 MMOL/L (136-145)
--- NOTE | 2017-06-13 09:20 | Pulmonology Progress Note ---
Assessment/Plan Assessment/Plan IMPRESSION: 1. Pulmonary edema. 2. Vascular congestion. 3. Hypoxemia requiring nasal oxygen. 4. Epistaxis. 5. DVT; on Eliquis DISCUSSION: Continue diuresis. Supplement oxygen via nasal cannula to correct hypoxemia. 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 Subjective Interval Events: None Constitutional: Reports: no symptoms HEENT: Repors: no symptoms Respiratory: Reports: no symptoms Cardiovascular: Reports: no symptoms Gastrointestinal/Abdominal: Reports: no symptoms Allergies: Coded Allergies: No Known Allergies (Unverified , 06/06/17) Objective Last 24 Hour Vital Signs Date Time Temp Pulse Resp B/P (MAP) Pulse Ox O2 Delivery O2 Flow Rate FiO2 06/13/17 06:10 127/75 06/13/17 04:00 74 06/13/17 04:00 98.1 77 20 119/68 94 Room Air 06/13/17 00:00 98.2 67 20 127/65 86 Room Air 06/13/17 00:00 77 06/12/17 21:52 132/76 06/12/17 20:00 79 06/12/17 20:00 99.7 94 20 132/76 94 Room Air 06/12/17 20:00 99.7 94 20 121/75 94 Room Air 2.0 21 06/12/17 16:00 79 06/12/17 16:00 97.7 76 19 121/75 94 Room Air 06/12/17 14:19 127/64 06/12/17 14:17 Room Air 21 06/12/17 14:17 98 Room Air 21 06/12/17 12:00 72 06/12/17 12:00 97.9 74 18 108/58 93 Room Air 06/12/17 10:03 Room Air 21 06/12/17 10:03 99 Room Air 21 Intake and Output 06/12/17 06/13/17 19:00 07:00 Intake Total 708 ml 400 ml Output Total 900 ml 700 ml Balance -192 ml -300 ml Intake Oral 708 ml 400 ml Output Urine Total 900 ml 700 ml # Bowel Movements 2 General Appearance: no acute distress HEENT: normocephalic Respiratory/Chest: chest wall non-tender, lungs clear Cardiovascular: normal peripheral pulses, normal rate Laboratory Tests 06/13/17 07:10: Sodium Level 140, Potassium Level 3.8, Chloride Level 105, Carbon Dioxide Level 29, Anion Gap 6, Blood Urea Nitrogen 12, Creatinine 1.0, Estimat Glomerular Filtration Rate , Glucose Level 147H, Calcium Level 7.3L, Magnesium Level 1.8, Total Bilirubin 0.6, Aspartate Amino Transf (AST/SGOT) 24, Alanine Aminotransferase (ALT/SGPT) 18, Alkaline Phosphatase 60, Pro-B-Type Natriuretic Peptide 1156H, Total Protein 6.6, Albumin 1.9L, Globulin 4.7, Albumin/Globulin Ratio 0.4L Current Medications Medications (Trade) Dose Ordered Sig/Maureen Route PRN Reason Start Time Stop Time Status Last Admin Dose Admin Acetaminophen (Tylenol) 650 mg Q4H PRN ORAL Mild Pain/Temp > 100.5 06/06/17 17:45 07/06/17 17:44 06/08/17 01:13 Apixaban (Eliquis) 5 mg BID ORAL 06/08/17 18:30 07/08/17 18:29 06/12/17 17:43 Atorvastatin Calcium (Lipitor) 40 mg BEDTIME ORAL 06/11/17 21:00 07/11/17 20:59 06/12/17 21:53 Calcium Carbonate (Calcium Carbonate) 650 mg THREE TIMES A DAY ORAL 06/13/17 09:00 07/13/17 08:59 Carvedilol (Coreg) 12.5 mg DAILY ORAL 06/12/17 09:00 07/12/17 08:59 06/12/17 09:03 Chlorhexidine Gluconate (Corinna-Hex 2%) 1 applic DAILY TOPIC 06/09/17 09:00 07/09/17 08:59 06/12/17 09:04 Hydralazine HCl (Apresoline) 25 mg Q8HR ORAL 06/06/17 22:00 07/06/17 21:59 06/13/17 06:10 Oxybutynin Chloride (Ditropan) 5 mg Q8HR ORAL 06/08/17 00:00 07/08/17 00:00 06/13/17 06:10 Pantoprazole (Protonix) 40 mg DAILY ORAL 06/10/17 09:00 07/10/17 08:59 06/12/17 09:03 Tamsulosin HCl (Flomax) 0.4 mg BEDTIME ORAL 06/06/17 21:00 07/06/17 20:59 06/12/17 21:52 Vitamin A/Vitamin D (A & D Oint) 1 applic EVERY 12 HOURS TOPIC 06/07/17 21:00 07/07/17 20:59 06/12/17 21:53 Blair Delacruz MD Jun 13, 2017 09:20
[2017-06-13] MEDS: Carvedilol 12.5mg tab ORAL SCH (11:00)
[2017-06-13] MEDS: Eliquis 2.5mg tablet ORAL SCH ×2 (11:01→19:17)
[2017-06-13] MEDS: Dyna-Hex 2% Top Sol 2oz TOPIC SCH (11:01)
[2017-06-13] MEDS: Calcium Carbonate 650mg Tab ORAL SCH ×3 (11:01→19:15)
[2017-06-13] MEDS: Vitamin A&D Oint 2oz Tube TOPIC SCH ×2 (11:01→21:37)
--- NOTE | 2017-06-13 11:53 | Infectious Diseases Prog Note ---
Assessment/Plan Problems: (1) Epistaxis Assessment & Plan: resolved , ENT is following. watch for recurrent bleeding (2) Sepsis Assessment & Plan: with leukocytosis , due to pyelonephritis from bladder outlet obstruction and urethral stricture , S/P cystoscopy with dilatation of the urethra and clot removal , blood culture is negative so far, urine culture was not done , monitor off unasyn , monitor WBC (3) Bilateral hydronephrosis Assessment & Plan: due to urethral stricture and bladder outlet obstruction , S/P cystoscopy . urology is following (4) Acute renal failure Assessment & Plan: improved, due to the above, continue hydration, monitor renal function , avoid nephrotoxic , nephrology is following (5) Elevated troponin Assessment & Plan: rule out ACS , cardiology is following Subjective Constitutional: Reports: no symptoms HEENT: Reports: no symptoms Respiratory: Reports: no symptoms Breasts: Reports: no symptoms Cardiovascular: Reports: no symptoms Gastrointestinal/Abdominal: Reports: no symptoms Genitourinary: Reports: hematuria Neurologic: Reports: no symptoms Psychiatric: Reports: no symptoms Skin: Reports: no symptoms Endocrine: Reports: no symptoms Hematologic: Reports: no symptoms Musculoskeletal: Reports: no symptoms Allergies: Coded Allergies: No Known Allergies (Unverified , 06/06/17) Objective Vital Signs Last 24 Hour Vital Signs Date Time Temp Pulse Resp B/P (MAP) Pulse Ox O2 Delivery O2 Flow Rate FiO2 06/13/17 11:00 75 125/77 06/13/17 08:00 97.7 75 20 125/77 95 Room Air 06/13/17 06:10 127/75 06/13/17 04:00 74 06/13/17 04:00 98.1 77 20 119/68 94 Room Air 06/13/17 00:00 98.2 67 20 127/65 86 Room Air 06/13/17 00:00 77 06/12/17 21:52 132/76 06/12/17 20:00 79 06/12/17 20:00 99.7 94 20 132/76 94 Room Air 06/12/17 20:00 99.7 94 20 121/75 94 Room Air 2.0 21 06/12/17 16:00 79 06/12/17 16:00 97.7 76 19 121/75 94 Room Air 06/12/17 14:19 127/64 06/12/17 14:17 Room Air 21 06/12/17 14:17 98 Room Air 21 06/12/17 12:00 72 06/12/17 12:00 97.9 74 18 108/58 93 Room Air Height (Feet): 6 Height (Inches): 1.00 Weight (Pounds): 190 General Appearance: WD/WN, no acute distress HEENT: normocephalic, atraumatic, anicteric, mucous membranes moist, PERRL, EOMI, pharynx normal, supple, no JVD Respiratory/Chest: chest wall non-tender, lungs clear, normal breath sounds, no respiratory distress, no accessory muscle use Cardiovascular: normal peripheral pulses, normal rate, regular rhythm, no gallop/murmur, no JVD Abdomen: normal bowel sounds, soft, non tender, no organomegaly, non distended , no mass, no scars Extremities: no cyanosis, no clubbing Skin: no rash, no lesions, no ulcers Neurologic/Psychiatric: alert, oriented x 3, responsive Laboratory Tests Test 06/13/17 07:10 Sodium Level 140 MMOL/L (136-145) Potassium Level 3.8 MMOL/L (3.5-5.1) Chloride Level 105 MMOL/L (98-107) Carbon Dioxide Level 29 MMOL/L (21-32) Anion Gap 6 mmol/L (5-15) Blood Urea Nitrogen 12 mg/dL (7-18) Creatinine 1.0 MG/DL (0.55-1.30) Estimat Glomerular Filtration Rate mL/min (>60) Glucose Level 147 MG/DL (74-106) H Calcium Level 7.3 MG/DL (8.5-10.1) L Magnesium Level 1.8 MG/DL (1.8-2.4) Total Bilirubin 0.6 MG/DL (0.2-1.0) Aspartate Amino Transf (AST/SGOT) 24 U/L (15-37) Alanine Aminotransferase (ALT/SGPT) 18 U/L (12-78) Alkaline Phosphatase 60 U/L (46-116) Pro-B-Type Natriuretic Peptide 1156 pg/mL (0-125) H Total Protein 6.6 G/DL (6.4-8.2) Albumin 1.9 G/DL (3.4-5.0) L Globulin 4.7 g/dL Albumin/Globulin Ratio 0.4 (1.0-2.7) L Current Medications Medications (Trade) Dose Ordered Sig/Maureen Route PRN Reason Start Time Stop Time Status Last Admin Dose Admin Acetaminophen (Tylenol) 650 mg Q4H PRN ORAL Mild Pain/Temp > 100.5 06/06/17 17:45 07/06/17 17:44 06/08/17 01:13 Apixaban (Eliquis) 5 mg BID ORAL 06/08/17 18:30 07/08/17 18:29 06/13/17 11:01 Atorvastatin Calcium (Lipitor) 40 mg BEDTIME ORAL 06/11/17 21:00 07/11/17 20:59 06/12/17 21:53 Calcium Carbonate (Calcium Carbonate) 650 mg THREE TIMES A DAY ORAL 06/13/17 09:00 07/13/17 08:59 06/13/17 11:01 Carvedilol (Coreg) 12.5 mg DAILY ORAL 06/12/17 09:00 07/12/17 08:59 06/13/17 11:00 Chlorhexidine Gluconate (Corinna-Hex 2%) 1 applic DAILY TOPIC 06/09/17 09:00 07/09/17 08:59 06/13/17 11:01 Hydralazine HCl (Apresoline) 25 mg Q8HR ORAL 06/06/17 22:00 07/06/17 21:59 06/13/17 06:10 Oxybutynin Chloride (Ditropan) 5 mg Q8HR ORAL 06/08/17 00:00 07/08/17 00:00 06/13/17 06:10 Pantoprazole (Protonix) 40 mg DAILY ORAL 06/10/17 09:00 07/10/17 08:59 06/13/17 11:00 Tamsulosin HCl (Flomax) 0.4 mg BEDTIME ORAL 06/06/17 21:00 07/06/17 20:59 06/12/17 21:52 Vitamin A/Vitamin D (A & D Oint) 1 applic EVERY 12 HOURS TOPIC 06/07/17 21:00 07/07/17 20:59 06/13/17 11:01 Molly Hernadez M.D. Jun 13, 2017 11:52
[2017-06-13 11:59] LABS: BASOPHILS % (AUTO) 0.6 % (0.0-2.0); EOSINOPHILS % (AUTO) 3.1 % (0.0-3.0); HEMATOCRIT 29.1 % (42.0-52.0); HEMOGLOBIN 8.9 G/DL (14.2-18.0); LYMPHOCYTES % (AUTO) 27.5 % (20.0-45.0); MEAN CORPUSCULAR VOLUME 88 FL (80-99); MONOCYTES % (AUTO) 11.6 % (1.0-10.0); NEUTROPHILS % (AUTO) 57.1 % (45.0-75.0); PLATELET COUNT 254 K/UL (150-450); RED BLOOD COUNT 3.32 M/UL (4.70-6.10); RED CELL DISTRIBUTION WIDTH 12.8 % (11.6-14.8); WHITE BLOOD COUNT 8.7 K/UL (4.8-10.8)
[2017-06-13 12:00] VITALS: BP 116/67
--- NOTE | 2017-06-13 15:41 | Diagnostic Imaging Report ---
Indication: Dyspnea Comparison: 06/06/2017 A single view chest radiograph was obtained. Findings: Heart is prominent but stable. There is right jugular catheter in good position. Lungs are clear with normal vascularity. IMPRESSION: Right jugular line in good position. No acute findings.
[2017-06-13 16:00] VITALS: BP 111/71
[2017-06-13 20:00] VITALS: BP 123/64
[2017-06-13] MEDS: Atorvastatin 20mg tab ORAL SCH (21:37)
[2017-06-13] MEDS: Tamsulosin 0.4mg cap ORAL SCH (21:37)
--- NOTE | 2017-06-13 21:48 | General Progress Note ---
Assessment/Plan Assessment/Plan ASSESSMENT AND RECOMMENDATIONS: 1. Deep venous thrombosis, which is extensive, of the right lower extremity. Continue current eliquis dose 2. Anemia secondary to hematuria. Currently mild, will monitor. Resolved 3. Acute kidney injury, end-stage renal disease, on dialysis. 4. Epistaxis due to anticoagulation, has been seen by ENT. Resolved 5. Sepsis. ID following 7. Hydronephrosis, urology following Subjective Allergies: Coded Allergies: No Known Allergies (Unverified , 06/06/17) All Systems: reviewed and negative except above Subjective no events overnight Objective Last 24 Hour Vital Signs Date Time Temp Pulse Resp B/P (MAP) Pulse Ox O2 Delivery O2 Flow Rate FiO2 06/13/17 21:37 128/68 06/13/17 16:00 97.3 73 20 111/71 95 Room Air 06/13/17 16:00 75 06/13/17 15:15 116/67 06/13/17 12:00 76 06/13/17 12:00 97.9 79 20 116/67 96 Room Air 06/13/17 11:00 75 125/77 06/13/17 08:00 97.7 75 20 125/77 95 Room Air 06/13/17 08:00 77 06/13/17 06:10 127/75 06/13/17 04:00 74 06/13/17 04:00 98.1 77 20 119/68 94 Room Air 06/13/17 00:00 98.2 67 20 127/65 86 Room Air 06/13/17 00:00 77 06/12/17 21:52 132/76 Intake and Output 06/12/17 06/13/17 19:00 07:00 Intake Total 708 ml 400 ml Output Total 900 ml 700 ml Balance -192 ml -300 ml Intake Oral 708 ml 400 ml Output Urine Total 900 ml 700 ml # Bowel Movements 2 Laboratory Tests 06/13/17 07:10: White Blood Count 8.7, Red Blood Count 3.32L, Hemoglobin 8.9L, Hematocrit 29.1L , Mean Corpuscular Volume 88, Mean Corpuscular Hemoglobin 26.8L, Mean Corpuscular Hemoglobin Concent 30.6L, Red Cell Distribution Width 12.8, Platelet Count 254, Mean Platelet Volume 6.2L, Neutrophils (%) (Auto) 57.1, Lymphocytes (%) (Auto) 27.5, Monocytes (%) (Auto) 11.6H, Eosinophils (%) (Auto) 3.1H, Basophils (%) (Auto) 0.6, Sodium Level 140, Potassium Level 3.8, Chloride Level 105, Carbon Dioxide Level 29, Anion Gap 6, Blood Urea Nitrogen 12, Creatinine 1.0, Estimat Glomerular Filtration Rate , Glucose Level 147H, Calcium Level 7.3L, Magnesium Level 1.8, Total Bilirubin 0.6, Aspartate Amino Transf (AST/SGOT) 24, Alanine Aminotransferase (ALT/SGPT) 18, Alkaline Phosphatase 60, Pro-B-Type Natriuretic Peptide 1156H, Total Protein 6.6, Albumin 1.9L, Globulin 4.7, Albumin/Globulin Ratio 0.4L Height (Feet): 6 Height (Inches): 1.00 Weight (Pounds): 190 General Appearance: no apparent distress EENT: PERRL/EOMI, normal ENT inspection Neck: non-tender, supple Cardiovascular: normal peripheral pulses Abdomen: normal bowel sounds Extremities: non-tender Edema: trace edema Yossi More Jun 13, 2017 21:48
--- NOTE | 2017-06-13 22:00 | Progress Note ---
DATE: 06/13/2017 CARDIOLOGY PROGRESS NOTE SUBJECTIVE: Less congestion noted. Oxygenation improving. OBJECTIVE: VITAL SIGNS: Blood pressure 116/67, pulse 76, respirations 20, monitored rhythm sinus with rare episodes of ventricular tachycardia. LUNGS: Good breath sounds. Few rhonchi. HEART: Regular rhythm and rate. Normal S1, S2. There is a fourth heart sound. ABDOMEN: Soft. No edema. LABORATORY AND DIAGNOSTIC DATA: Potassium 3.8, BUN 12, and creatinine 1. White count 8.7, hemoglobin 8.9. Chest x-ray reveals resolution of congestive heart failure with right IJ line in place. IMPRESSION: 1. Sepsis. 2. Acute myocardial infarction. 3. Nonsustained ventricular tachycardia. 4. Acute on chronic diastolic congestive heart failure, resolved. 5. Hypokalemia, corrected. 6. Right lower extremity venous thrombosis, acute. PLAN: 1. Transition to maintenance dose diuretic orally. 2. Continue beta-blockade. 3. Full anticoagulation. 4. Observe for secondary signs of bleeding. Lucio Jackson M.D. DR: TOMAS JOB#: [id number] CC:
--- NOTE | 2017-06-13 23:39 | Nephrology Progress Note ---
Assessment/Plan Problem List: (1) Sepsis (2) Acute on chronic kidney failure Assessment: ABEBA resolved. Off HD. (3) Urinary retention due to benign prostatic hyperplasia (4) Bilateral hydronephrosis (5) HLD (hyperlipidemia) (6) HTN (hypertension) (7) Congestive heart failure Plan No more HD. d/c line soon. Monitor renal function. Monitor I/O. Subjective Subjective Better .Less congested. Objective Objective Last 24 Hour Vital Signs Date Time Temp Pulse Resp B/P (MAP) Pulse Ox O2 Delivery O2 Flow Rate FiO2 06/13/17 21:37 128/68 06/13/17 20:00 98.1 75 20 123/64 94 Room Air 06/13/17 16:00 97.3 73 20 111/71 95 Room Air 06/13/17 16:00 75 06/13/17 15:15 116/67 06/13/17 12:00 76 06/13/17 12:00 97.9 79 20 116/67 96 Room Air 06/13/17 11:00 75 125/77 06/13/17 08:00 97.7 75 20 125/77 95 Room Air 06/13/17 08:00 77 06/13/17 06:10 127/75 06/13/17 04:00 74 06/13/17 04:00 98.1 77 20 119/68 94 Room Air 06/13/17 00:00 98.2 67 20 127/65 86 Room Air 06/13/17 00:00 77 Intake and Output 06/12/17 06/13/17 19:00 07:00 Intake Total 708 ml 400 ml Output Total 900 ml 700 ml Balance -192 ml -300 ml Intake Oral 708 ml 400 ml Output Urine Total 900 ml 700 ml # Bowel Movements 2 Laboratory Tests 06/13/17 07:10: White Blood Count 8.7, Red Blood Count 3.32L, Hemoglobin 8.9L, Hematocrit 29.1L , Mean Corpuscular Volume 88, Mean Corpuscular Hemoglobin 26.8L, Mean Corpuscular Hemoglobin Concent 30.6L, Red Cell Distribution Width 12.8, Platelet Count 254, Mean Platelet Volume 6.2L, Neutrophils (%) (Auto) 57.1, Lymphocytes (%) (Auto) 27.5, Monocytes (%) (Auto) 11.6H, Eosinophils (%) (Auto) 3.1H, Basophils (%) (Auto) 0.6, Sodium Level 140, Potassium Level 3.8, Chloride Level 105, Carbon Dioxide Level 29, Anion Gap 6, Blood Urea Nitrogen 12, Creatinine 1.0, Estimat Glomerular Filtration Rate , Glucose Level 147H, Calcium Level 7.3L, Magnesium Level 1.8, Total Bilirubin 0.6, Aspartate Amino Transf (AST/SGOT) 24, Alanine Aminotransferase (ALT/SGPT) 18, Alkaline Phosphatase 60, Pro-B-Type Natriuretic Peptide 1156H, Total Protein 6.6, Albumin 1.9L, Globulin 4.7, Albumin/Globulin Ratio 0.4L Height (Feet): 6 Height (Inches): 1.00 Weight (Pounds): 190 General Appearance: no apparent distress Cardiovascular: normal rate, regular rhythm Respiratory/Chest: lungs clear Abdomen: non tender, soft KANG HAMMER Jun 13, 2017 23:39
[2017-06-14] VITALS: BP 124/72
[2017-06-14 04:00] VITALS: BP 146/94
[2017-06-14] MEDS: Oxybutynin 5mg tab ORAL SCH ×3 (05:46→22:47)
[2017-06-14] MEDS: HydrALAZINE 25mg tab ORAL SCH ×3 (05:46→22:00)
--- NOTE | 2017-06-14 06:50 | Pulmonology Progress Note ---
Assessment/Plan Assessment/Plan 1. Sepsis. 2. Acute myocardial infarction. 3. Nonsustained ventricular tachycardia. 4. Acute on chronic diastolic congestive heart failure, resolved. 5. Hypokalemia, corrected. 6. Right lower extremity venous thrombosis, acute. PLAN: 1. continue diuretic 2. Continue beta-blockade. 3. anticoagulation w Eliquis. 4. pulm status stable Subjective Respiratory: Denies: hemoptysis, shortness of breath Allergies: Coded Allergies: No Known Allergies (Unverified , 06/06/17) Objective Last 24 Hour Vital Signs Date Time Temp Pulse Resp B/P (MAP) Pulse Ox O2 Delivery O2 Flow Rate FiO2 06/14/17 05:46 142/88 06/14/17 04:00 70 06/14/17 04:00 98.2 78 18 146/94 97 Room Air 06/14/17 00:00 98.4 86 28 124/72 98 Room Air 06/14/17 00:00 81 06/13/17 21:37 128/68 06/13/17 20:00 98.1 75 20 123/64 94 Room Air 06/13/17 20:00 76 06/13/17 16:00 97.3 73 20 111/71 95 Room Air 06/13/17 16:00 75 06/13/17 15:15 116/67 06/13/17 12:00 76 06/13/17 12:00 97.9 79 20 116/67 96 Room Air 06/13/17 11:00 75 125/77 06/13/17 08:00 97.7 75 20 125/77 95 Room Air 06/13/17 08:00 77 Intake and Output 06/13/17 06/14/17 19:00 07:00 Intake Total 610 ml Output Total 500 ml Balance 110 ml Intake Oral 610 ml Output Urine Total 500 ml # Bowel Movements 2 General Appearance: no acute distress HEENT: atraumatic Respiratory/Chest: lungs clear Cardiovascular: normal rate Laboratory Tests 06/13/17 07:10: White Blood Count 8.7, Red Blood Count 3.32L, Hemoglobin 8.9L, Hematocrit 29.1L , Mean Corpuscular Volume 88, Mean Corpuscular Hemoglobin 26.8L, Mean Corpuscular Hemoglobin Concent 30.6L, Red Cell Distribution Width 12.8, Platelet Count 254, Mean Platelet Volume 6.2L, Neutrophils (%) (Auto) 57.1, Lymphocytes (%) (Auto) 27.5, Monocytes (%) (Auto) 11.6H, Eosinophils (%) (Auto) 3.1H, Basophils (%) (Auto) 0.6, Sodium Level 140, Potassium Level 3.8, Chloride Level 105, Carbon Dioxide Level 29, Anion Gap 6, Blood Urea Nitrogen 12, Creatinine 1.0, Estimat Glomerular Filtration Rate , Glucose Level 147H, Calcium Level 7.3L, Magnesium Level 1.8, Total Bilirubin 0.6, Aspartate Amino Transf (AST/SGOT) 24, Alanine Aminotransferase (ALT/SGPT) 18, Alkaline Phosphatase 60, Pro-B-Type Natriuretic Peptide 1156H, Total Protein 6.6, Albumin 1.9L, Globulin 4.7, Albumin/Globulin Ratio 0.4L Current Medications Medications (Trade) Dose Ordered Sig/Maureen Route PRN Reason Start Time Stop Time Status Last Admin Dose Admin Acetaminophen (Tylenol) 650 mg Q4H PRN ORAL Mild Pain/Temp > 100.5 06/06/17 17:45 07/06/17 17:44 06/08/17 01:13 Apixaban (Eliquis) 5 mg BID ORAL 06/08/17 18:30 07/08/17 18:29 06/13/17 19:17 Atorvastatin Calcium (Lipitor) 40 mg BEDTIME ORAL 06/11/17 21:00 07/11/17 20:59 06/13/17 21:37 Calcium Carbonate (Calcium Carbonate) 650 mg THREE TIMES A DAY ORAL 06/13/17 09:00 07/13/17 08:59 06/13/17 19:15 Carvedilol (Coreg) 12.5 mg DAILY ORAL 06/12/17 09:00 07/12/17 08:59 06/13/17 11:00 Chlorhexidine Gluconate (Corinna-Hex 2%) 1 applic DAILY TOPIC 06/09/17 09:00 07/09/17 08:59 06/13/17 11:01 Furosemide (Lasix) 20 mg DAILY ORAL 06/14/17 09:00 07/14/17 08:59 Hydralazine HCl (Apresoline) 25 mg Q8HR ORAL 06/06/17 22:00 07/06/17 21:59 06/14/17 05:46 Lisinopril (Zestril) 10 mg DAILY ORAL 06/14/17 09:00 07/14/17 08:59 Oxybutynin Chloride (Ditropan) 5 mg Q8HR ORAL 06/08/17 00:00 07/08/17 00:00 06/14/17 05:46 Pantoprazole (Protonix) 40 mg DAILY ORAL 06/10/17 09:00 07/10/17 08:59 06/13/17 11:00 Tamsulosin HCl (Flomax) 0.4 mg BEDTIME ORAL 06/06/17 21:00 07/06/17 20:59 06/13/17 21:37 Vitamin A/Vitamin D (A & D Oint) 1 applic EVERY 12 HOURS TOPIC 06/07/17 21:00 07/07/17 20:59 06/13/17 21:37 BRAULIO BETH Jun 14, 2017 06:50
[2017-06-14 08:00] VITALS: BP 127/72
--- NOTE | 2017-06-14 09:00 | Progress Note ---
DATE: 06/13/2017 SUBJECTIVE: This is a 76-year-old male, who is currently sitting in bed. 00:10 ultrasound done that showed chronic DVT. OBJECTIVE: GENERAL: The patient otherwise alert, awake, and confused. Also, has a leg ulcer 00:15. VITAL SIGNS: blood pressure 100/40, pulse 74, respirations 18, no fever. SKIN: Good skin turgor. NECK: Supple. CHEST: Bilaterally clear. CARDIOVASCULAR: Regular rhythm. No gallop. No murmur. ABDOMEN: Soft. EXTREMITIES: CCE. Right foot has ulcer. ASSESSMENT AND PLAN: 1. Right foot ulcer. 2. Acute versus chronic deep venous thrombosis. 3. Peripheral vascular disease. 4. Sepsis. PLAN: Continue current treatment. Add Lovenox. Consider Hematology/Oncology consult. Tolu Noel M.D. DR: Jose JOB#: [id number] CC:
[2017-06-14] MEDS: Eliquis 2.5mg tablet ORAL SCH ×2 (10:28→18:00)
[2017-06-14] MEDS: Calcium Carbonate 650mg Tab ORAL SCH ×3 (10:28→18:40)
[2017-06-14] MEDS: Lisinopril 10mg tab ORAL SCH (10:29)
[2017-06-14] MEDS: Carvedilol 12.5mg tab ORAL SCH (10:29)
[2017-06-14] MEDS: Vitamin A&D Oint 2oz Tube TOPIC SCH ×2 (10:37→21:24)
[2017-06-14] MEDS: Dyna-Hex 2% Top Sol 2oz TOPIC SCH (10:37)
[2017-06-14 12:00] VITALS: BP 107/60
--- NOTE | 2017-06-14 12:32 | Nephrology Progress Note ---
Assessment/Plan Problem List: (1) Bilateral hydronephrosis (2) Renal cyst (3) Acute renal failure Assessment: resolved (4) Congestive heart failure (5) Urinary retention due to benign prostatic hyperplasia (6) HLD (hyperlipidemia) (7) HTN (hypertension) (8) Epistaxis (9) Elevated troponin (10) Acute on chronic kidney failure Plan DC rita catheter, normal renal function monitor lites and correct prn Continue allen per urology Pain management prn PPI daily AM labs Subjective Constitutional: Denies: no symptoms, chills, diaphoresis, fever, malaise, weakness, other HEENT: Denies: no symptoms, eye pain, blurred vision, tearing, double vision, ear pain, ear discharge, nose pain, nose congestion, throat pain, throat swelling, mouth pain, mouth swelling, other Genitourinary: Denies: no symptoms, burning, discharge, frequency, flank pain, hematuria, incontinence, pain, urgency, other Neurologic/Psychiatric: Denies: no symptoms, anxiety, depressed, emotional problems, headache, numbness, paresthesia, pre-existing deficit, seizure, tingling, tremors, weakness, other Subjective In bed, denies discomfort at this time, adequate urine output via allen. Objective Objective Last 24 Hour Vital Signs Date Time Temp Pulse Resp B/P (MAP) Pulse Ox O2 Delivery O2 Flow Rate FiO2 06/14/17 12:00 97.7 71 20 107/60 95 Room Air 06/14/17 10:29 127/72 06/14/17 10:29 78 127/72 06/14/17 08:00 97.5 78 22 127/72 96 Room Air 06/14/17 08:00 79 06/14/17 05:46 142/88 06/14/17 04:00 70 06/14/17 04:00 98.2 78 18 146/94 97 Room Air 06/14/17 00:00 98.4 86 28 124/72 98 Room Air 06/14/17 00:00 81 06/13/17 21:37 128/68 06/13/17 20:00 98.1 75 20 123/64 94 Room Air 06/13/17 20:00 76 06/13/17 16:00 97.3 73 20 111/71 95 Room Air 06/13/17 16:00 75 06/13/17 15:15 116/67 Intake and Output 06/13/17 06/14/17 18:59 06:59 Intake Total 610 ml 300 ml Output Total 500 ml 1000 ml Balance 110 ml -700 ml Intake Oral 610 ml 300 ml Output Urine Total 500 ml 1000 ml # Bowel Movements 2 Height (Feet): 6 Height (Inches): 1.00 Weight (Pounds): 190 General Appearance: no apparent distress, alert EENT: normal ENT inspection Neck: normal alignment, supple Cardiovascular: normal rate, regular rhythm, no JVD Respiratory/Chest: normal breath sounds, no respiratory distress Abdomen: non tender, soft Genitourinary/Rectal: other - allen catheter Neurologic: alert, oriented x 3, responsive, normal mood/affect Nathaly Smalls N.P. Jun 14, 2017 12:32
--- NOTE | 2017-06-14 14:57 | Infectious Diseases Prog Note ---
Assessment/Plan Problems: (1) Epistaxis Assessment & Plan: resolved , ENT is following. watch for recurrent bleeding (2) Sepsis Assessment & Plan: with leukocytosis , due to pyelonephritis from bladder outlet obstruction and urethral stricture , S/P cystoscopy with dilatation of the urethra and clot removal , blood culture is negative so far, urine culture was not done , monitor off unasyn , monitor WBC (3) Bilateral hydronephrosis Assessment & Plan: due to urethral stricture and bladder outlet obstruction , S/P cystoscopy and allen catheter placement . urology is following (4) Acute renal failure Assessment & Plan: improved, due to the above, continue hydration, monitor renal function , avoid nephrotoxic , nephrology is following (5) Elevated troponin Assessment & Plan: rule out ACS , cardiology is following Subjective Constitutional: Reports: no symptoms HEENT: Reports: no symptoms Respiratory: Reports: no symptoms Breasts: Reports: no symptoms Cardiovascular: Reports: no symptoms Gastrointestinal/Abdominal: Reports: no symptoms Genitourinary: Reports: no symptoms Neurologic: Reports: no symptoms Psychiatric: Reports: no symptoms Skin: Reports: no symptoms Endocrine: Reports: no symptoms Hematologic: Reports: no symptoms Musculoskeletal: Reports: no symptoms Allergies: Coded Allergies: No Known Allergies (Unverified , 06/06/17) Objective Vital Signs Last 24 Hour Vital Signs Date Time Temp Pulse Resp B/P (MAP) Pulse Ox O2 Delivery O2 Flow Rate FiO2 06/14/17 12:00 97.7 71 20 107/60 95 Room Air 06/14/17 10:29 127/72 06/14/17 10:29 78 127/72 06/14/17 08:00 97.5 78 22 127/72 96 Room Air 06/14/17 08:00 79 06/14/17 05:46 142/88 06/14/17 04:00 70 06/14/17 04:00 98.2 78 18 146/94 97 Room Air 06/14/17 00:00 98.4 86 28 124/72 98 Room Air 06/14/17 00:00 81 06/13/17 21:37 128/68 06/13/17 20:00 98.1 75 20 123/64 94 Room Air 06/13/17 20:00 76 06/13/17 16:00 97.3 73 20 111/71 95 Room Air 06/13/17 16:00 75 06/13/17 15:15 116/67 Height (Feet): 6 Height (Inches): 1.00 Weight (Pounds): 190 General Appearance: WD/WN, no acute distress HEENT: normocephalic, atraumatic, anicteric, mucous membranes moist, PERRL Respiratory/Chest: chest wall non-tender, lungs clear, normal breath sounds, no respiratory distress, no accessory muscle use Cardiovascular: normal peripheral pulses, normal rate, regular rhythm, no gallop/murmur, no JVD Abdomen: normal bowel sounds, soft, non tender, no organomegaly, non distended , no mass, no scars Extremities: no cyanosis, no clubbing Skin: no rash, no lesions, no ulcers Neurologic/Psychiatric: alert, responsive Current Medications Medications (Trade) Dose Ordered Sig/Maureen Route PRN Reason Start Time Stop Time Status Last Admin Dose Admin Acetaminophen (Tylenol) 650 mg Q4H PRN ORAL Mild Pain/Temp > 100.5 06/06/17 17:45 07/06/17 17:44 06/08/17 01:13 Apixaban (Eliquis) 5 mg BID ORAL 06/08/17 18:30 07/08/17 18:29 06/14/17 10:28 Atorvastatin Calcium (Lipitor) 40 mg BEDTIME ORAL 06/11/17 21:00 07/11/17 20:59 06/13/17 21:37 Calcium Carbonate (Calcium Carbonate) 650 mg THREE TIMES A DAY ORAL 06/13/17 09:00 07/13/17 08:59 06/14/17 10:28 Carvedilol (Coreg) 12.5 mg DAILY ORAL 06/12/17 09:00 07/12/17 08:59 06/14/17 10:29 Chlorhexidine Gluconate (Corinna-Hex 2%) 1 applic DAILY TOPIC 06/09/17 09:00 07/09/17 08:59 06/14/17 10:37 Furosemide (Lasix) 20 mg DAILY ORAL 06/14/17 09:00 07/14/17 08:59 06/14/17 10:29 Hydralazine HCl (Apresoline) 25 mg Q8HR ORAL 06/06/17 22:00 07/06/17 21:59 06/14/17 05:46 Lisinopril (Zestril) 10 mg DAILY ORAL 06/14/17 09:00 07/14/17 08:59 06/14/17 10:29 Oxybutynin Chloride (Ditropan) 5 mg Q8HR ORAL 06/08/17 00:00 07/08/17 00:00 06/14/17 05:46 Pantoprazole (Protonix) 40 mg DAILY ORAL 06/10/17 09:00 07/10/17 08:59 06/14/17 10:29 Tamsulosin HCl (Flomax) 0.4 mg BEDTIME ORAL 06/06/17 21:00 07/06/17 20:59 06/13/17 21:37 Vitamin A/Vitamin D (A & D Oint) 1 applic EVERY 12 HOURS TOPIC 06/07/17 21:00 07/07/17 20:59 06/14/17 10:37 Molly Hernadez M.D. Jun 14, 2017 14:57
--- NOTE | 2017-06-14 15:30 | Progress Note ---
DATE: 06/14/2017 SUBJECTIVE: This is an elderly male, who is sitting in the bed comfortable, no distress. OBJECTIVE: VITAL SIGNS: Blood pressure is 130/70, pulse 60, respirations 18 and no fever. CHEST: Bilaterally clear. CARDIOVASCULAR: Regular rhythm. No gallop. No murmur. ABDOMEN: Soft. EXTREMITIES: CCE. ASSESSMENT: 1. Altered mental status. 2. Weakness. 3. Dehydration. PLAN: Continue current treatment. Continue all IV fluid and PT/OT. Continue with supportive treatment. Tolu Noel M.D. DR: BRUCE JOB#: [id number] CC:
[2017-06-14 16:00] VITALS: BP 100/86
--- NOTE | 2017-06-14 16:09 | Cardiac Electrophysiology PN ---
Assessment/Plan Status Narrative Normal left ventricular chamber size, systolic function and wall motion to extent visualized. Left ventricular ejection fraction estimated to be 60 %. Mild left ventricular hypertrophy . No evidence of pericardial effusion Mild bi-atrial enlargement. Right ventricle is mildly enlarged with reduced function. Focal aortic valve sclerosis with adequate cusp excursion. Thickened mitral valve leaflets with normal excursion. Assessment/Plan 1. Type 2 NSTEMI in the setting of ARF. ECG No STEMI. No acute changes. Echo Nl EF. On Coreg and Lipitor. EF 60% 2. Nonsustained ventricular tachycardia.On Coreg. 3. Acute on chronic diastolic congestive heart failure, resolved. 4. Hypokalemia, corrected. 5. Right lower extremity venous thrombosis, acute. On Eliquis 6. ARF to to BPH. Resolved. DC Parvez cath per Dr Jorgito SAAB RN Subjective Subjective Still having hematuria. There is an order to DC Parvez Catheter.No chest pain or Arrhythmias on tele. Objective Last 24 Hour Vital Signs Date Time Temp Pulse Resp B/P (MAP) Pulse Ox O2 Delivery O2 Flow Rate FiO2 06/14/17 12:00 97.7 71 20 107/60 95 Room Air 06/14/17 10:29 127/72 06/14/17 10:29 78 127/72 06/14/17 08:00 97.5 78 22 127/72 96 Room Air 06/14/17 08:00 79 06/14/17 05:46 142/88 06/14/17 04:00 70 06/14/17 04:00 98.2 78 18 146/94 97 Room Air 06/14/17 00:00 98.4 86 28 124/72 98 Room Air 06/14/17 00:00 81 06/13/17 21:37 128/68 06/13/17 20:00 98.1 75 20 123/64 94 Room Air 06/13/17 20:00 76 Intake and Output 06/13/17 06/14/17 19:00 07:00 Intake Total 610 ml 300 ml Output Total 500 ml 1000 ml Balance 110 ml -700 ml Intake Oral 610 ml 300 ml Output Urine Total 500 ml 1000 ml # Bowel Movements 2 Objective HEENT No JVE. Right IJ Parvez in place LUNGS: Clear CVS: RRR ABDOMEN: Soft EXT: No edema RENETTA SAVAGE Jun 14, 2017 16:09
--- NOTE | 2017-06-14 16:38 | General Progress Note ---
Assessment/Plan Assessment/Plan ASSESSMENT AND RECOMMENDATIONS: 1. Deep venous thrombosis, which is extensive, of the right lower extremity. Continue current eliquis dose 2. Anemia secondary to hematuria. Urology service following, see recs 3. Acute kidney injury, end-stage renal disease, on dialysis. 4. Epistaxis due to anticoagulation, has been seen by ENT. Resolved 5. Sepsis. ID following 7. Hydronephrosis, urology following 8. Urinary retention 2/2 BPH Subjective Genitourinary: Reports: hematuria Hematologic/Lymphatic: Reports: anemia Allergies: Coded Allergies: No Known Allergies (Unverified , 06/06/17) All Systems: reviewed and negative except above Subjective no fevers or chills, hematuria noted Objective Last 24 Hour Vital Signs Date Time Temp Pulse Resp B/P (MAP) Pulse Ox O2 Delivery O2 Flow Rate FiO2 06/14/17 12:00 97.7 71 20 107/60 95 Room Air 06/14/17 10:29 127/72 06/14/17 10:29 78 127/72 06/14/17 08:00 97.5 78 22 127/72 96 Room Air 06/14/17 08:00 79 06/14/17 05:46 142/88 06/14/17 04:00 70 06/14/17 04:00 98.2 78 18 146/94 97 Room Air 06/14/17 00:00 98.4 86 28 124/72 98 Room Air 06/14/17 00:00 81 06/13/17 21:37 128/68 06/13/17 20:00 98.1 75 20 123/64 94 Room Air 06/13/17 20:00 76 Intake and Output 06/13/17 06/14/17 19:00 07:00 Intake Total 610 ml 300 ml Output Total 500 ml 1000 ml Balance 110 ml -700 ml Intake Oral 610 ml 300 ml Output Urine Total 500 ml 1000 ml # Bowel Movements 2 Height (Feet): 6 Height (Inches): 1.00 Weight (Pounds): 190 General Appearance: no apparent distress EENT: PERRL/EOMI Neck: normal alignment Respiratory/Chest: chest wall non-tender Abdomen: normal bowel sounds Edema: 1+ Pedal (L), 1+ Pedal (R) Skin: normal pigmentation Yossi More Jun 14, 2017 16:38
[2017-06-14 20:20] VITALS: BP 103/64
[2017-06-14] MEDS: Tamsulosin 0.4mg cap ORAL SCH (21:24)
[2017-06-14] MEDS: Atorvastatin 20mg tab ORAL SCH (21:24)
--- NOTE | 2017-06-14 22:30 | Progress Note ---
DATE: 06/14/2017 CARDIOLOGY PROGRESS NOTE SUBJECTIVE: The patient is without new complaints. More alert. Urine output by Garcia catheter is noted. Dialysis is no longer required. OBJECTIVE: VITAL SIGNS: Blood pressure 107/60, pulse 71, and respiratory rate 20. LUNGS: Good breath sounds. No wheezing. HEARTY: Regular rhythm and rate. Normal S1 and S2 with a fourth heart sound. ABDOMEN: Soft. EXTREMITIES: No edema. IMPRESSION: 1. Acute renal failure, resolved. 2. Acute on chronic diastolic congestive heart failure, now compensated. 3. Hypertensive heart disease with controlled blood pressure. 4. Acute myocardial infarction, uncomplicated with no signs of ischemia presently. 5. Nonsustained ventricular tachycardia. 6. Acute deep venous thrombosis. PLAN: 1. Continue beta-calvin. 2. Maintain full anticoagulation and statin drug. 3. Discontinue IV fluids. 4. Hold anticoagulation in anticipation of removing Parvez catheter. Lucio Jackson M.D. DR: Kristyn JOB#: [id number] CC:
--- NOTE | 2017-06-15 00:02 | Diagnostic Imaging Report ---
APPROVED REPORT CPT Code: 21730 Present Symptoms Shortness of breath RIGHT LEG: Venous imaging reveals acute thrombus in the common femoral vein. Imaging also reveals patency of the superficial femoral, popliteal and calf veins. The proximal greater saphenous vein is also thrombosed. LEFT LEG: Venous imaging reveals a patent deep venous system. There is no evidence of thrombus within the femoral, popliteal or tibial segments. The greater saphenous vein is also within normal limits. Doppler indicates normal spontaneous flow within these segments. LOBO Zarco was notified of abnormal results at 11.40 hours.
[2017-06-15 00:31] VITALS: BP 105/73
[2017-06-15 04:36] VITALS: BP 109/61
[2017-06-15] MEDS: HydrALAZINE 25mg tab ORAL SCH ×2 (06:00→14:00)
[2017-06-15] MEDS: Oxybutynin 5mg tab ORAL SCH ×2 (06:19→14:37)
[2017-06-15 08:00] VITALS: BP 101/59
[2017-06-15 08:18] LABS: BASOPHILS % (AUTO) 0.8 % (0.0-2.0); EOSINOPHILS % (AUTO) 3.4 % (0.0-3.0); HEMOGLOBIN 9.1 G/DL (14.2-18.0); LYMPHOCYTES % (AUTO) 31.2 % (20.0-45.0); MEAN CORPUSCULAR VOLUME 88 FL (80-99); MONOCYTES % (AUTO) 10.3 % (1.0-10.0); NEUTROPHILS % (AUTO) 54.3 % (45.0-75.0); PLATELET COUNT 345 K/UL (150-450); RED BLOOD COUNT 3.31 M/UL (4.70-6.10)
[2017-06-15 09:00] LABS: ANION GAP 7 mmol/L (5-15); BLOOD UREA NITROGEN 12 mg/dL (7-18); CALCIUM 7.6 MG/DL (8.5-10.1); CARBON DIOXIDE 28 MMOL/L (21-32); CHLORIDE 105 MMOL/L (98-107); POTASSIUM 3.8 MMOL/L (3.5-5.1); SODIUM 140 MMOL/L (136-145)
[2017-06-15] MEDS: Carvedilol 12.5mg tab ORAL SCH (09:00)
[2017-06-15] MEDS: Lisinopril 10mg tab ORAL SCH (09:00)
[2017-06-15] MEDS: Eliquis 2.5mg tablet ORAL SCH (09:00)
[2017-06-15] MEDS: Calcium Carbonate 650mg Tab ORAL SCH ×2 (10:37→14:37)
[2017-06-15] MEDS: Dyna-Hex 2% Top Sol 2oz TOPIC SCH (10:38)
[2017-06-15] MEDS: Vitamin A&D Oint 2oz Tube TOPIC SCH (10:38)
--- NOTE | 2017-06-15 11:53 | Wound Nurse Progress Note ---
Wound RN Progress Note Wound Consult reassessment #1 Left buttock open blisters stage II pressure ulcer- noted good progress, scattered , no further deterioration present, wound bed is 100% pink,current wound care is effective. #2 Left and right foot dry flaky skin- keep clean and moisturized Recommendation -Local wound care per protocol -Keep clean and dry -Turn and reposition -Optimize nutrition -Offload both heels -Heel protector on both heels -Low air loss SPR mattress -Assess and f/u accordingly for any changes ERIK TENORIO Jun 15, 2017 11:52
[2017-06-15 12:00] VITALS: BP 108/63
--- NOTE | 2017-06-15 15:10 | Infectious Diseases Prog Note ---
Assessment/Plan Problems: (1) Epistaxis Assessment & Plan: resolved , ENT is following. watch for recurrent bleeding (2) Sepsis Assessment & Plan: with leukocytosis , due to pyelonephritis from bladder outlet obstruction and urethral stricture , S/P cystoscopy with dilatation of the urethra and clot removal , blood culture is negative so far, urine culture was not done , continue to monitor off unasyn , all cultures has been negative so far . (3) Bilateral hydronephrosis Assessment & Plan: due to urethral stricture and bladder outlet obstruction , S/P cystoscopy and allen catheter placement . urology is following (4) Acute renal failure Assessment & Plan: improved, due to the above, continue hydration, monitor renal function , avoid nephrotoxic , nephrology is following (5) Elevated troponin Assessment & Plan: possible ACS , cardiology is following Subjective Constitutional: Reports: no symptoms HEENT: Reports: no symptoms Respiratory: Reports: no symptoms Breasts: Reports: no symptoms Cardiovascular: Reports: no symptoms Gastrointestinal/Abdominal: Reports: no symptoms Genitourinary: Reports: no symptoms Neurologic: Reports: no symptoms Psychiatric: Reports: no symptoms Skin: Reports: no symptoms Endocrine: Reports: no symptoms Hematologic: Reports: no symptoms Musculoskeletal: Reports: no symptoms Allergies: Coded Allergies: No Known Allergies (Unverified , 06/06/17) Objective Vital Signs Last 24 Hour Vital Signs Date Time Temp Pulse Resp B/P (MAP) Pulse Ox O2 Delivery O2 Flow Rate FiO2 06/15/17 12:00 98.3 69 20 108/63 97 Room Air 06/15/17 08:00 73 06/15/17 08:00 98.1 62 20 101/59 97 Room Air 06/15/17 06:00 107/62 06/15/17 04:36 98.4 62 18 109/61 97 Room Air 06/15/17 04:00 64 06/15/17 00:31 98.2 62 18 105/73 98 Room Air 06/15/17 00:00 76 06/14/17 22:00 102/63 06/14/17 20:20 98.1 64 18 103/64 97 Room Air 06/14/17 20:00 63 06/14/17 16:00 68 06/14/17 16:00 97.9 63 19 100/86 96 Room Air Height (Feet): 6 Height (Inches): 1.00 Weight (Pounds): 190 General Appearance: WD/WN, no acute distress HEENT: normocephalic, atraumatic, anicteric, mucous membranes moist, PERRL Respiratory/Chest: chest wall non-tender, lungs clear, normal breath sounds, no respiratory distress, no accessory muscle use Cardiovascular: normal peripheral pulses, normal rate, regular rhythm, no gallop/murmur, no JVD Abdomen: normal bowel sounds, soft, non tender, no organomegaly, non distended , no mass, no scars Genitourinary: normal external genitalia Extremities: no cyanosis, no clubbing Skin: no rash, no lesions, no ulcers Neurologic/Psychiatric: alert, responsive Lymphatic: no neck adenopathy Laboratory Tests Test 06/15/17 07:45 White Blood Count 7.0 K/UL (4.8-10.8) Red Blood Count 3.31 M/UL (4.70-6.10) L Hemoglobin 9.1 G/DL (14.2-18.0) L Hematocrit 29.0 % (42.0-52.0) L Mean Corpuscular Volume 88 FL (80-99) Mean Corpuscular Hemoglobin 27.5 PG (27.0-31.0) Mean Corpuscular Hemoglobin Concent 31.4 G/DL (32.0-36.0) L Red Cell Distribution Width 13.0 % (11.6-14.8) Platelet Count 345 K/UL (150-450) Mean Platelet Volume 6.0 FL (6.5-10.1) L Neutrophils (%) (Auto) 54.3 % (45.0-75.0) Lymphocytes (%) (Auto) 31.2 % (20.0-45.0) Monocytes (%) (Auto) 10.3 % (1.0-10.0) H Eosinophils (%) (Auto) 3.4 % (0.0-3.0) H Basophils (%) (Auto) 0.8 % (0.0-2.0) Sodium Level 140 MMOL/L (136-145) Potassium Level 3.8 MMOL/L (3.5-5.1) Chloride Level 105 MMOL/L (98-107) Carbon Dioxide Level 28 MMOL/L (21-32) Anion Gap 7 mmol/L (5-15) Blood Urea Nitrogen 12 mg/dL (7-18) Creatinine 1.0 MG/DL (0.55-1.30) Estimat Glomerular Filtration Rate mL/min (>60) Glucose Level 153 MG/DL (74-106) H Calcium Level 7.6 MG/DL (8.5-10.1) L Pro-B-Type Natriuretic Peptide 321 pg/mL (0-125) H Current Medications Medications (Trade) Dose Ordered Sig/Maureen Route PRN Reason Start Time Stop Time Status Last Admin Dose Admin Acetaminophen (Tylenol) 650 mg Q4H PRN ORAL Mild Pain/Temp > 100.5 06/06/17 17:45 07/06/17 17:44 06/08/17 01:13 Apixaban (Eliquis) 5 mg BID ORAL 06/08/17 18:30 07/08/17 18:29 06/14/17 10:28 Atorvastatin Calcium (Lipitor) 40 mg BEDTIME ORAL 06/11/17 21:00 07/11/17 20:59 06/14/17 21:24 Calcium Carbonate (Calcium Carbonate) 650 mg THREE TIMES A DAY ORAL 06/13/17 09:00 07/13/17 08:59 06/15/17 14:37 Carvedilol (Coreg) 12.5 mg DAILY ORAL 06/12/17 09:00 07/12/17 08:59 06/14/17 10:29 Chlorhexidine Gluconate (Corinna-Hex 2%) 1 applic DAILY TOPIC 06/09/17 09:00 07/09/17 08:59 06/15/17 10:38 Furosemide (Lasix) 20 mg DAILY ORAL 06/14/17 09:00 07/14/17 08:59 06/14/17 10:29 Hydralazine HCl (Apresoline) 25 mg Q8HR ORAL 06/06/17 22:00 07/06/17 21:59 06/14/17 05:46 Lisinopril (Zestril) 10 mg DAILY ORAL 06/14/17 09:00 07/14/17 08:59 06/14/17 10:29 Oxybutynin Chloride (Ditropan) 5 mg Q8HR ORAL 06/08/17 00:00 07/08/17 00:00 06/15/17 14:37 Pantoprazole (Protonix) 40 mg DAILY ORAL 06/10/17 09:00 07/10/17 08:59 06/15/17 10:37 Tamsulosin HCl (Flomax) 0.4 mg BEDTIME ORAL 06/06/17 21:00 07/06/17 20:59 06/14/17 21:24 Vitamin A/Vitamin D (A & D Oint) 1 applic EVERY 12 HOURS TOPIC 06/07/17 21:00 07/07/17 20:59 06/15/17 10:38 Molly Hernadez M.D. Jun 15, 2017 15:10
[2017-06-15] MEDS ORDERED: ELIQUIS5 MG PO (15:32)
--- NOTE | 2017-06-15 15:49 | Cardiac Electrophysiology PN ---
Assessment/Plan Status Narrative Normal left ventricular chamber size, systolic function and wall motion to extent visualized. Left ventricular ejection fraction estimated to be 60 %. Mild left ventricular hypertrophy . No evidence of pericardial effusion Mild bi-atrial enlargement. Right ventricle is mildly enlarged with reduced function. Focal aortic valve sclerosis with adequate cusp excursion. Thickened mitral valve leaflets with normal excursion. Assessment/Plan 1. Type 2 NSTEMI in the setting of ARF. ECG No STEMI. No acute changes. Echo Nl EF. On Coreg and Lipitor. EF 60% 2. Nonsustained ventricular tachycardia.On Coreg. 3. Acute on chronic diastolic congestive heart failure, resolved. 4. Hypokalemia, corrected. 5. Right lower extremity venous thrombosis, acute. On Eliquis 6. ARF to to BPH. Resolved. Parvez cath DCed DW RN DC to [facility] today Subjective Subjective Parvez Catheter DCed.No chest pain or arrhythmias on tele. No chest pain Objective Last 24 Hour Vital Signs Date Time Temp Pulse Resp B/P (MAP) Pulse Ox O2 Delivery O2 Flow Rate FiO2 06/15/17 12:00 98.3 69 20 108/63 97 Room Air 06/15/17 08:00 73 06/15/17 08:00 98.1 62 20 101/59 97 Room Air 06/15/17 06:00 107/62 06/15/17 04:36 98.4 62 18 109/61 97 Room Air 06/15/17 04:00 64 06/15/17 00:31 98.2 62 18 105/73 98 Room Air 06/15/17 00:00 76 06/14/17 22:00 102/63 06/14/17 20:20 98.1 64 18 103/64 97 Room Air 06/14/17 20:00 63 06/14/17 16:00 68 06/14/17 16:00 97.9 63 19 100/86 96 Room Air Intake and Output 06/14/17 06/15/17 19:00 07:00 Intake Total 600 ml 600 ml Output Total 800 ml 1000 ml Balance -200 ml -400 ml Intake Oral 600 ml IV Total 600 ml Output Urine Total 800 ml 1000 ml Laboratory Tests Test 06/15/17 07:45 White Blood Count 7.0 K/UL (4.8-10.8) Red Blood Count 3.31 M/UL (4.70-6.10) L Hemoglobin 9.1 G/DL (14.2-18.0) L Hematocrit 29.0 % (42.0-52.0) L Mean Corpuscular Volume 88 FL (80-99) Mean Corpuscular Hemoglobin 27.5 PG (27.0-31.0) Mean Corpuscular Hemoglobin Concent 31.4 G/DL (32.0-36.0) L Red Cell Distribution Width 13.0 % (11.6-14.8) Platelet Count 345 K/UL (150-450) Mean Platelet Volume 6.0 FL (6.5-10.1) L Neutrophils (%) (Auto) 54.3 % (45.0-75.0) Lymphocytes (%) (Auto) 31.2 % (20.0-45.0) Monocytes (%) (Auto) 10.3 % (1.0-10.0) H Eosinophils (%) (Auto) 3.4 % (0.0-3.0) H Basophils (%) (Auto) 0.8 % (0.0-2.0) Sodium Level 140 MMOL/L (136-145) Potassium Level 3.8 MMOL/L (3.5-5.1) Chloride Level 105 MMOL/L (98-107) Carbon Dioxide Level 28 MMOL/L (21-32) Anion Gap 7 mmol/L (5-15) Blood Urea Nitrogen 12 mg/dL (7-18) Creatinine 1.0 MG/DL (0.55-1.30) Estimat Glomerular Filtration Rate mL/min (>60) Glucose Level 153 MG/DL (74-106) H Calcium Level 7.6 MG/DL (8.5-10.1) L Pro-B-Type Natriuretic Peptide 321 pg/mL (0-125) H Objective HEENT No JVE. Right IJ Parvez removed LUNGS: Clear CVS: RRR ABDOMEN: Soft EXT: No edema RENETTA SAVAGE Jun 15, 2017 15:49
--- NOTE | 2017-06-16 05:30 | Progress Note ---
CARDIOLOGY PROGRESS NOTE SUBJECTIVE: The patient's condition has improved. No chest pain. No shortness of breath. He has episodes of nonsustained ventricular ectopy. Echocardiogram revealed normal ejection fraction. OBJECTIVE: VITAL SIGNS: Blood pressure 108/63, pulse 69, and respiratory rate 20. LUNGS: Good breath sounds. No wheezing or rales. HEART: Regular rhythm and rate. Normal S1, S2 with a fourth heart sound. ABDOMEN: Soft and nontender. EXTREMITIES: Trace edema. IMPRESSION: 1. Acute deep venous thrombosis. 2. Paroxysmal atrial fibrillation. 3. Acute myocardial infarction. PLAN: 1. Medical therapy. 2. Continue current medications. No indication for dialysis. 3. Maintain full anticoagulation with Eliquis. 4. Relieving precautions. 5. Stable for transfer to a detention facility from cardiology standpoint, but will require close monitoring of clinical parameters described above. Lucio Jackson M.D. DR: KENDRA JOB#: [id number] CC:
--- NOTE | 2017-06-16 07:25 | General Progress Note ---
Assessment/Plan Assessment/Plan LATE ENTRY ASSESSMENT AND RECOMMENDATIONS: 1. Deep venous thrombosis, which is extensive, of the right lower extremity. Due to hematuria, hold eliquis --> follow up with pcp after DC 2. Anemia secondary to hematuria. Urology service following, see recs 3. Acute kidney injury, end-stage renal disease, on dialysis. 4. Epistaxis due to anticoagulation, has been seen by ENT. Resolved 5. Sepsis. ID following 7. Hydronephrosis, urology following 8. Urinary retention 2/2 BPH Subjective Date patient seen: Jun 15, 2017 Genitourinary: Reports: hematuria Hematologic/Lymphatic: Reports: anemia Allergies: Coded Allergies: No Known Allergies (Unverified , 06/06/17) All Systems: reviewed and negative except above Subjective no fevers or chills, hematuria noted Objective Last 24 Hour Vital Signs Date Time Temp Pulse Resp B/P (MAP) Pulse Ox O2 Delivery O2 Flow Rate FiO2 06/15/17 12:00 98.3 69 20 108/63 97 Room Air 06/15/17 08:00 73 06/15/17 08:00 98.1 62 20 101/59 97 Room Air Intake and Output 06/15/17 06/16/17 19:00 07:00 Intake Total 480 ml Output Total 950 ml Balance -470 ml Intake Oral 480 ml Output Urine Total 950 ml Laboratory Tests 06/15/17 07:45: White Blood Count 7.0, Red Blood Count 3.31L, Hemoglobin 9.1L, Hematocrit 29.0L , Mean Corpuscular Volume 88, Mean Corpuscular Hemoglobin 27.5, Mean Corpuscular Hemoglobin Concent 31.4L, Red Cell Distribution Width 13.0, Platelet Count 345, Mean Platelet Volume 6.0L, Neutrophils (%) (Auto) 54.3, Lymphocytes (%) (Auto) 31.2, Monocytes (%) (Auto) 10.3H, Eosinophils (%) (Auto) 3.4H, Basophils (%) (Auto) 0.8, Sodium Level 140, Potassium Level 3.8, Chloride Level 105, Carbon Dioxide Level 28, Anion Gap 7, Blood Urea Nitrogen 12, Creatinine 1.0, Estimat Glomerular Filtration Rate , Glucose Level 153H, Calcium Level 7.6L, Pro-B-Type Natriuretic Peptide 321H Height (Feet): 6 Height (Inches): 1.00 Weight (Pounds): 190 General Appearance: no apparent distress EENT: normal ENT inspection Neck: normal alignment Cardiovascular: normal peripheral pulses Respiratory/Chest: chest wall non-tender Extremities: normal range of motion 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
--- NOTE | 2017-06-16 20:34 | Discharge Summary ---
Discharge Summary Hospital Course Date of Admission Jun 06, 2017 at 14:39 Date of Discharge Jun 15, 2017 at 16:15 Admitting Diagnosis ARF, nosebleed, elevated troponin HPI Cade Benites Jr is a 76 year old male who was admitted on Jun 06, 2017 at 14 :39 for Acute Renal Failure, Nosebleed,Elevatwed Troponin Hospital Course The patient is a 76-year-old male with a past medical history significant for hypertension, BPH who presented to the emergency room with epistaxis. According to the patient, he has been bleeding for a couple of days. He stated that he asked his brother who came to visit him at home to take him to the emergency room. He has been on Plavix. He stated that two months ago, he was admitted to [facility] for difficulty urination. He stated that he had a Garcia catheter put in and was subsequently discharged. He does not remember if he has seen any urologist or not. Denies chest pain. No nausea. No vomiting. No abdominal pain. He stated that he has had hernia, which causes pain intermittently on the left lower quadrant. On evaluation at ED, he was found to have leukocytosis, creatinine was markedly elevated, troponin was 1.168, hemoglobin was 11, CXR with interstitial congestion. Dr Serra was consulted. Epistaxis eventually resolved. He was given Bacitracin ointment to nostrils BID. He had not urine output, renal ultrasound showed markedly distended urinary bladder with bilateral hydronephrosis. Renal function continue to deteriorate, she has acute renal failure secondary to urinary obstruction. Dr Calix was consulted. He attempted to pass 16 mongolian straight, 14 mongolian coude and 20 mongolian coude, however was unsuccessful. URethral trauma resulted in blood from meatus. Given patient still has plavix in system, aborted further intervention. Patient has sepsis with leukocytosis, suspect due to urinary retention and possible pyelonephritis. He was started empirically with Unasyn IV. A venous ultrasound also showed acute DVT on the right leg. He was given Eliquis. He had insertion of temporary HD catheter inserted to right jugular by IR on 06/08/17. He was then started on HD with subsequent improvement in renal function. He also underwent Cystoscopy, dilation of urethral stricture, clot evacuation, and complex catheter placement by Dr Calix. Elevated troponin I level in this patient, most likely due to troponin leak due to end-stage renal disease. There were no EKG changes. A 2D echocardiography showed normal EF 60%. At this time, there is no plan for cardiac catheterization. He was given On Coreg and Lipitor. He had episodes of Nonsustained ventricular tachycardia.On Coreg. He he had hematuria, Eliquis was placed on temporary hold, he was placed on bladder irrigation. Hematuria resolved. Parvez catheter was also discontinued due to normal renal function. He was eventually discharged to SNF to resume Eliquis. Assessment/Plan Problem List: (1) Acute renal failure due to bladder outlet obstruction with Bilateral hydronephrosis (2) Acute DVT right leg (3) Elevated troponin/NSTEMI type 2 (4) Acute on chronic Congestive heart failure (5) Urinary retention due to benign prostatic hyperplasia (6) HLD (hyperlipidemia) (7) HTN (hypertension) (8) Epistaxis (9) Renal cyst (10) Acute on chronic kidney failure (11) Sepsis (12) Anemia (13) Hematuria (14) s/p cystoscopy (15) Stage 2 pressure ulcer pressure ulcer Discharge Discharge Disposition Patient was discharged to SNF Discharge Diagnoses: Rosmery Alvarenga NP Jun 16, 2017 20:34
--- NOTE | 2017-06-28 19:29 | Consultation ---
Consult Note Assessment/Plan DATE OF CONSULTATION: 06/28/17 HEMATOLOGY/ONCOLOGY CONSULTATION CONSULTING PHYSICIAN: Yossi More M.D. REQUESTING PHYSICIAN: Noemi Espinosa MD REASON FOR CONSULTATION: Evaluation of DVT. IDENTIFICATION DATA: The patient is a pleasant 76-year-old male with a past medical history significant for hyperlipidemia, hypertension, BPH, at this time presents with ams and UTI, Ap prior renal ultrasound showed mild bilateral hydronephrosis , poor emptying of the bladder, A prior Duplex of lower extremity was obtained and the patient noted to have acute thrombus in the common femoral vein on the right leg. Hematology Service consulted for further evaluation and treatment as well as for anemia eval PAST MEDICAL HISTORY: Hypertension. PAST SURGICAL HISTORY: None noted. MEDICATIONS: Coreg, hydralazine, Flomax, Lipitor, and Tylenol. ALLERGIES: No known drug allergies. REVIEW OF SYSTEMS: CONSTITUTIONAL: No fevers, chills, or night sweats. SKIN: No rashes, bumps, or itching. HEENT: No headache, hearing or vision changes. BREASTS: No lumps, pain, or discharge. PULMONARY: No cough, sputum, or shortness of breath. GASTROINTESTINAL: No nausea, vomiting, or diarrhea. GENITOURINARY: No dysuria, frequency, or urgency. MUSCULOSKELETAL: No joint swelling, muscle pain, or trauma. PHYSICAL EXAMINATION: GENERAL: No acute distress. PULMONARY: Decreased breath sounds. CARDIOVASCULAR: Regular rate. No S3 or S4. ABDOMEN: Soft, nontender, and nondistended. EXTREMITIES: 1+ edema. LABORATORY AND DIAGNOSTIC DATA: have been reviewed ASSESSMENT AND RECOMMENDATIONS: 1. Deep venous thrombosis, which is extensive, of the right lower extremity, femoral vein. --> in prior had epistaxis, therefore had eliquis on hold --> repeat duplex of lower extremity to re-eval dvt 2. Anemia secondary to hematuria. Currently better --> resend for anemia workup --> hgb goal >7 3. History of Garcia catheter insertion 4. Acute kidney injury currently better 5. Sepsis. Continue antibiotics 6. UTi on ceftriaxone Yossi More Jun 28, 2017 19:29
[2017-06-28 21:46] LABS: FERRITIN 550 NG/ML (8-388); LACTATE DEHYDROGENASE 222 U/L (81-234)
[2017-06-28 22:02] LABS: % IRON SATURATION 25 % (15-50); IRON 40 ug/dL (50-175); TOTAL IRON BINDING CAPACITY 161 ug/dL (250-450)
[2017-07-01 12:30] LABS: APTT 1:1 MIX SALINE 42.5 sec (Not Estab.); APTT 1:1 NORMAL PLASMA 24.7 sec (22.9-30.2)
--- NOTE | 2017-07-16 20:39 | Diagnostic Imaging Report ---
APPROVED REPORT CPT Code: 01240 Present Symptoms Lower Extremity Pain: RIGHT LEG: Venous imaging reveals acute thrombus in the common femoral and proximal superficial femoral vein. Imaging reveals patency of the mid to distal superficial femoral, popliteal and calf veins. The greater saphenous vein is within normal limits. LEFT LEG: Venous imaging reveals a patent deep venous system. There is no evidence of thrombus within the femoral, popliteal or tibial segments. The greater saphenous vein is also within normal limits. Doppler indicates normal spontaneous flow within these segments. LOBO Collado was informed of abnormal results at 11:50 hrs.
== END 2017-06-15 16:15 | DRG 720 ==
LOC: EDBD 12:51 → EMR 13:10 → 2E 14:39 → EDBEDREQ 14:52
PROC: 0T7D8ZZ Dilation of Urethra, Via Natural or Artificial Opening Endoscopic (ICD-10-PCS; 2017-06-08)
PROC: 05HM33Z Insertion of Infusion Device into Right Internal Jugular Vein, Percutaneous Approach (ICD-10-PCS; 2017-06-08)
PROC: B543ZZA Ultrasonography of Right Jugular Veins, Guidance (ICD-10-PCS; 2017-06-08)
PROC: 0TCB8ZZ Extirpation of Matter from Bladder, Via Natural or Artificial Opening Endoscopic (ICD-10-PCS; principal; 2017-06-08 12:30)
DX: A41.9 Sepsis, unspecified organism (principal); I50.33 Acute on chronic diastolic (congestive) heart failure; N17.9 Acute kidney failure, unspecified; L89.322 Pressure ulcer of left buttock, stage 2; N13.30 Unspecified hydronephrosis; I82.409 Acute embolism and thrombosis of unspecified deep veins of unspecified lower extremity; N18.5 Chronic kidney disease, stage 5; R04.0 Epistaxis; N12 Tubulo-interstitial nephritis, not specified as acute or chronic; R09.02 Hypoxemia; N40.1 Benign prostatic hyperplasia with lower urinary tract symptoms; R33.8 Other retention of urine; E78.5 Hyperlipidemia, unspecified; R31.9 Hematuria, unspecified; I13.2 Hypertensive heart and chronic kidney disease with heart failure and with stage 5 chronic kidney disease, or end stage renal disease; N28.1 Cyst of kidney, acquired; E87.6 Hypokalemia; I73.9 Peripheral vascular disease, unspecified; L97.919 Non-pressure chronic ulcer of unspecified part of right lower leg with unspecified severity; E86.0 Dehydration; T45.515A Adverse effect of anticoagulants, initial encounter; Y92.89 Other specified places as the place of occurrence of the external cause
CPT/HCPCS: 36415; 36569; 71010; 76775; 76937; 80048; 80053; 80061; 82550; 82553; 82607; 82728; 82746; 82962; 83540; 83550; 83615; 83735; 83880; 84443; 84484; 84550; 85007; 85025; 85384; 85610; 85730; 86706; 86707; 86803; 86850; 86900; 86901; 87040; 87070; 87081; 87205; 93005; 93306; 93970; 94003; 94150; 94760; 99285; J2250; J8499

== ENCOUNTER 2017-06-27 16:59 | Inpatient (IN) | payer MEDICAID, MEDICARE ==
[~2017-06-27] VITALS: Ht 177.8 cm; Wt 63.5 kg
[~2017-06-27 16:59] MED LIST: ATORVASTATIN CA40 MG ORAL; COREG3.125 MG ORAL; ELIQUIS5 MG PO; HYDRALAZINE HCL25 M1 ORAL; MULTIVITAMINS1 EAC2 ORAL; PLAVIX75 MG ORAL; TAMSULOSIN HCL0.4 MG ORAL
[2017-06-27 17:05] VITALS: BP 103/59
[2017-06-27] MEDS ORDERED: PANTOPRAZOLE SO40 MG ORAL (17:10)
[2017-06-27] MEDS ORDERED: ZOFRAN4 M3 ORAL (17:10)
[2017-06-27] MEDS ORDERED: ACETAMINOPHEN325 M1 ORAL (17:10)
[2017-06-27] MEDS ORDERED: LISINOPRIL10 MG ORAL (17:10)
[2017-06-27] MEDS ORDERED: OXYBUTYNIN CHLOR5 GM MC (17:10)
[2017-06-27] MEDS ORDERED: FUROSEMIDE20 M1 ORAL (17:10)
[2017-06-27] MEDS ORDERED: COLACE100 MG ORAL (17:11)
[2017-06-27] MEDS ORDERED: ASPIRIN325 MG ORAL (17:11)
[2017-06-27 17:43] LABS: APPEARANCE,URINE SLIGHTLY CLOUDY; BILIRUBIN, URINE NEGATIVE (NEGATIVE); GLUCOSE, URINE (UA) NEGATIVE (NEGATIVE); KETONES,URINE NEGATIVE (NEGATIVE); LEUKOCYTE ESTERASE ,URINE 3+ (NEGATIVE); NITRITE,URINE POSITIVE (NEGATIVE); PH,URINE 6.5 (4.5-8.0); PROTEIN,URINE 2+ (NEGATIVE); UROBILINOGEN,URINE NORMAL MG/DL (0.0-1.0)
[2017-06-27 17:44] LABS: COLOR,URINE YELLOW
[2017-06-27 17:45] LABS: BASOPHILS % (AUTO) 0.9 % (0.0-2.0); EOSINOPHILS % (AUTO) 2.5 % (0.0-3.0); HEMOGLOBIN 8.8 G/DL (14.2-18.0); LYMPHOCYTES % (AUTO) 20.5 % (20.0-45.0); MEAN CORPUSCULAR VOLUME 85 FL (80-99); MONOCYTES % (AUTO) 9.8 % (1.0-10.0); NEUTROPHILS % (AUTO) 66.4 % (45.0-75.0); PLATELET COUNT 337 K/UL (150-450); RED BLOOD COUNT 3.28 M/UL (4.70-6.10); RED CELL DISTRIBUTION WIDTH 12.8 % (11.6-14.8); WHITE BLOOD COUNT 8.8 K/UL (4.8-10.8)
[2017-06-27 18:05] LABS: ANION GAP 8 mmol/L (5-15); BLOOD UREA NITROGEN 19 mg/dL (7-18); CALCIUM 9.1 MG/DL (8.5-10.1); CARBON DIOXIDE 29 MMOL/L (21-32); CHLORIDE 101 MMOL/L (98-107); CREATININE 1.4 MG/DL (0.55-1.30); POTASSIUM 4.3 MMOL/L (3.5-5.1); SODIUM 138 MMOL/L (136-145)
[2017-06-27] MEDS ORDERED: cefTRIAXone 1 GM in NS 55 ML IVPB ONE (18:15)
[2017-06-27 18:16] LABS: ALANINE AMINOTRANSFERASE 15 U/L (12-78); ALBUMIN 2.4 G/DL (3.4-5.0); ALBUMIN/GLOBULIN RATIO 0.5 (1.0-2.7); ALKALINE PHOSPHATASE 69 U/L (46-116); ASPARTATE AMINO TRANSFERASE 14 U/L (15-37); BILIRUBIN,TOTAL 0.2 MG/DL (0.2-1.0)
[2017-06-27 19:04] VITALS: BP 107/63
--- NOTE | 2017-06-27 19:23 | Emergency Room Report ---
History of Present Illness General Chief Complaint: Abnormal Labs Source: Patient, Medical Record Present Illness HPI 76-year-old male presents to ED for evaluation. [facility] Patient states he's getting increasingly weak for the last few days. Patient has history of frequent UTI. Denies fevers or chills. Denies cough. Denies chest pain shortness of breath. Denies nausea or vomiting. No other aggravating or leading factors. Denies any other associated symptoms Allergies: Coded Allergies: No Known Allergies (Unverified , 06/06/17) Patient History Past Medical History: HTN, CVA/TIA Past Surgical History: none Pertinent Family History: none Social History: Denies: smoking, alcohol use, drug use Immunizations: UTD Reviewed Nursing Documentation: PMH: Agreed, PSxH: Agreed Nursing Documentation-PMH Hx Cardiac Problems: Yes - hemipledia and hemiparesis following CVA Hx Hypertension: Yes Hx Cancer: No Hx Gastrointestinal Problems: No Hx Neurological Problems: Yes - BPH, difficulty walking, Hx Cerebrovascular Accident: Yes Review of Systems All Other Systems: negative except mentioned in HPI Physical Exam Vital Signs Date Time Temp Pulse Resp B/P (MAP) Pulse Ox O2 Delivery O2 Flow Rate FiO2 06/27/17 16:57 98.1 60 16 111/64 96 Room Air Sp02 EP Interpretation: reviewed, normal General Appearance: no apparent distress, alert, GCS 15, non-toxic Head: normocephalic, atraumatic Eyes: bilateral eye normal inspection, bilateral eye PERRL ENT: hearing grossly normal, normal pharynx, no angioedema, normal voice Neck: full range of motion, supple/symm/no masses Respiratory: chest non-tender, lungs clear, normal breath sounds, speaking full sentences Cardiovascular #1: regular rate, rhythm, no edema Cardiovascular #2: 2+ carotid (R), 2+ carotid (L), 2+ radial (R), 2+ radial (L) , 2+ dorsalis pedis (R), 2+ dorsalis pedis (L) Gastrointestinal: normal bowel sounds, non tender, soft, non-distended, no guarding, no rebound Rectal: deferred Genitourinary: normal inspection, no CVA tenderness Musculoskeletal: back normal, gait/station normal, normal range of motion, non- tender Neurologic: alert, oriented x3, responsive, motor strength/tone normal, sensory intact, speech normal Psychiatric: judgement/insight normal, memory normal, mood/affect normal, no suicidal/homicidal ideation Reflexes: 3+ bicep (R), 3+ bicep (L), 3+ tricep (R), 3+ tricep (L), 3+ knee (R) , 3+ knee (L) Skin: normal color, no rash, warm/dry, well hydrated Lymphatic: no adenopathy Medical Decision Making Diagnostic Impression: Primary Impression: UTI (urinary tract infection) Qualified Codes: N39.0 - Urinary tract infection, site not specified Additional Impressions: Renal insufficiency Anemia Qualified Codes: D64.9 - Anemia, unspecified Urinary retention due to benign prostatic hyperplasia ER Course Hospital Course 76-year-old male presenting to ED with generalized weakness Differential diagnoses include: Pneumonia, UTI, sepsis, dehydration, LA/ unstable angina Clinical course Patient placed on stretcher. 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 After initial history and physical, I ordered labs, IV fluids, EKG, chest x-ray, blood cultures, UA. Labs - BUN/Cr elevated, no leukocytosis, Hb 8.8, Hct 28, lactate ok, UA grossly positive for UTI EKG - NSR, no acute ischemic changes intperreted by me CXR - no acute process , cardiomegaly Abx given. Case discussed with and they agreed to admit patient to their service for further care and support I feel this is a highly complex case requiring extensive working including EKG/ Rhythm strip, Xray/CT/US, Blood/urine lab work, repeat exams while in ED, and administration of strong opiates/narcotics for pain control, admission to hospital or close patient follow up. Diagnosis - UTI, renal insufficiency, anemia, urinary retention Patient admitted to floor in serious condition Labs Test 06/27/17 17:25 White Blood Count 8.8 K/UL (4.8-10.8) Red Blood Count 3.28 M/UL (4.70-6.10) Hemoglobin 8.8 G/DL (14.2-18.0) Hematocrit 28.0 % (42.0-52.0) Mean Corpuscular Volume 85 FL (80-99) Mean Corpuscular Hemoglobin 26.8 PG (27.0-31.0) Mean Corpuscular Hemoglobin Concent 31.4 G/DL (32.0-36.0) Red Cell Distribution Width 12.8 % (11.6-14.8) Platelet Count 337 K/UL (150-450) Mean Platelet Volume 5.3 FL (6.5-10.1) Neutrophils (%) (Auto) 66.4 % (45.0-75.0) Lymphocytes (%) (Auto) 20.5 % (20.0-45.0) Monocytes (%) (Auto) 9.8 % (1.0-10.0) Eosinophils (%) (Auto) 2.5 % (0.0-3.0) Basophils (%) (Auto) 0.9 % (0.0-2.0) Urine Color Yellow Urine Appearance Slightly cloudy Urine pH 6.5 (4.5-8.0) Urine Specific [place] 1.005 (1.005-1.035) Urine Protein 2+ (NEGATIVE) Urine Glucose (UA) Negative (NEGATIVE) Urine Ketones Negative (NEGATIVE) Urine Occult Blood 4+ (NEGATIVE) Urine Nitrite Positive (NEGATIVE) Urine Bilirubin Negative (NEGATIVE) Urine Urobilinogen Normal MG/DL (0.0-1.0) Urine Leukocyte Esterase 3+ (NEGATIVE) Urine RBC 10-15 /HPF (0 - 0) Urine WBC 30-40 /HPF (0 - 0) Urine Squamous Epithelial Cells None /LPF (NONE/OCC) Urine Amorphous Sediment Few /LPF (NONE) Urine Bacteria Many /HPF (NONE) Urine Fine Granular Casts 0-2 /LPF (NONE) Sodium Level 138 MMOL/L (136-145) Potassium Level 4.3 MMOL/L (3.5-5.1) Chloride Level 101 MMOL/L (98-107) Carbon Dioxide Level 29 MMOL/L (21-32) Anion Gap 8 mmol/L (5-15) Blood Urea Nitrogen 19 mg/dL (7-18) Creatinine 1.4 MG/DL (0.55-1.30) Estimat Glomerular Filtration Rate mL/min (>60) Glucose Level 155 MG/DL (74-106) Lactic Acid Level 1.20 mmol/L (0.66-2.22) Calcium Level 9.1 MG/DL (8.5-10.1) Total Bilirubin 0.2 MG/DL (0.2-1.0) Aspartate Amino Transf (AST/SGOT) 14 U/L (15-37) Alanine Aminotransferase (ALT/SGPT) 15 U/L (12-78) Alkaline Phosphatase 69 U/L (46-116) Pro-B-Type Natriuretic Peptide 176 pg/mL (0-125) Total Protein 7.4 G/DL (6.4-8.2) Albumin 2.4 G/DL (3.4-5.0) Globulin 5.0 g/dL Albumin/Globulin Ratio 0.5 (1.0-2.7) EKG Diagnostic Results Rate: normal Rhythm: NSR ST Segments: no acute changes ASA given to the pt in ED: No Rhythm Strip Diag. Results EP Interpretation: yes Rhythm: NSR, no PVC's, no ectopy Chest X-Ray Diagnostic Results Chest X-Ray Diagnostic Results : Chest X-Ray Ordered: Yes # of Views/Limited/Complete: 1 View Indication: Other - weakness EP Interpretation: Yes Interpretation: no consolidation, no effusion, no pneumothorax, no acute cardiopulmonary disease Impression: No acute disease Electronically Signed by: Electronically signed by Angel Best MD Last Vital Signs Date Time Temp Pulse Resp B/P (MAP) Pulse Ox O2 Delivery O2 Flow Rate FiO2 06/27/17 19:04 98.1 55 17 107/63 100 Room Air Status: improved Disposition: ADMITTED INPATIENT Condition: Serious Referrals: Jesús Franklin MD (PCP) ANGEL BEST M.D. Jun 27, 2017 19:23
[2017-06-27 22:00] VITALS: BP 110/37
[2017-06-27 23:30] VITALS: BP 121/60
[2017-06-28 00:36] VITALS: BP 147/66
[2017-06-28] MEDS: Acetaminophen 500mg (ES) tab ORAL SCH ×5 (01:45→19:18)
[2017-06-28 04:16] VITALS: BP 95/55
[2017-06-28 07:21] LABS: EOSINOPHILS % (AUTO) 3.3 % (0.0-3.0); HEMATOCRIT 26.7 % (42.0-52.0); HEMOGLOBIN 8.5 G/DL (14.2-18.0); LYMPHOCYTES % (AUTO) 27.5 % (20.0-45.0); MEAN CORPUSCULAR VOLUME 86 FL (80-99); MONOCYTES % (AUTO) 10.1 % (1.0-10.0); NEUTROPHILS % (AUTO) 58.1 % (45.0-75.0); PLATELET COUNT 326 K/UL (150-450)
[2017-06-28 07:29] LABS: ANION GAP 7 mmol/L (5-15); BLOOD UREA NITROGEN 14 mg/dL (7-18); CALCIUM 8.8 MG/DL (8.5-10.1); CARBON DIOXIDE 28 MMOL/L (21-32); CHLORIDE 104 MMOL/L (98-107); CREATININE 1.1 MG/DL (0.55-1.30); POTASSIUM 3.7 MMOL/L (3.5-5.1); SODIUM 139 MMOL/L (136-145)
[2017-06-28 08:59] VITALS: BP 111/55
[2017-06-28] MEDS ORDERED: Lisinopril 10mg tab ORAL ONE (09:00)
--- NOTE | 2017-06-28 09:43 | History and Physical Report ---
DATE OF ADMISSION: 06/27/2017 NOTE: POOR AUDIO HISTORY OF PRESENT ILLNESS: The patient is admitted for altered mental status, , azotemia, UTI, and anemia. The patient basically comes from a group home. He has been getting increasingly worse, and has history of frequent UTIs. Denies fever or chills. Denies nausea, vomiting, or diarrhea. No chest pain. PAST MEDICAL HISTORY: History of CVA, history of hypertension, difficulty walking, also history of CHF, history of renal cyst, history of bilateral hydronephrosis, hyperlipidemia, history of benign prostatic hypertrophy, and also urinary incontinence. MEDICATIONS: Aspirin, Lipitor, Coreg, Plavix, , lisinopril, oxybutynin, Protonix, and Flomax. ALLERGIES: No known allergies. SOCIAL HISTORY: The patient denies smoking, alcohol, or illicit drug use. Comes from a group home. FAMILY HISTORY: Noncontributory. REVIEW OF SYSTEMS: HEENT: headaches. RESPIRATORY: Denies shortness of breath. Denies cough. CARDIOVASCULAR: Denies chest pain . GI: Denies nausea, vomiting, or diarrhea. PHYSICAL EXAMINATION: VITAL SIGNS: Temperature is 98.1 degrees, pulse is 60, and blood pressure 111/64. HEENT: PERRLA. NECK: Supple. No lymphadenopathy. CHEST: Clear to auscultation. GASTROINTESTINAL: Soft, nontender, and nondistended. No organomegaly. EXTREMITIES: No edema. Reflexes are equal on both sides. Moves all four extremities. LABORATORY DATA: WBC of 8.8, hemoglobin 8.8, and platelets of 337,000. Sodium 138, potassium 4.3, BUN of 19, creatinine 1.4, and glucose 155. ASSESSMENT AND PLAN: 1. Altered mental status. 2. Urinary tract infection. 3. Azotemia. 4. Anemia. I have asked basically Dr. More, , and Dr. Romero to see the patient for the urinary tract infection and also dehydration. The patient will continue with IV fluids and anemia will be treated by Dr. More Jesús Franklin M.D. DR: Munir JOB#: [id number] CC:
--- NOTE | 2017-06-28 10:05 | Diagnostic Imaging Report ---
Indication: Dyspnea Technique: XRAY Chest 1v Comparison: 06/13/2017 Findings: Heart size and mediastinal contours are stable. Interval removal of right-sided central line. There is no focal airspace correlation, pleural effusion or pneumothorax. No acute bony abnormality seen. Impression: Stable cardiomegaly. No focal consolidation, pleural effusion or pneumothorax. Interval removal of right jugular line.
[2017-06-28] MEDS: HydrALAZINE 25mg tab ORAL SCH ×3 (11:39→21:23)
[2017-06-28] MEDS: Oxybutynin 5mg tab ORAL SCH ×3 (11:40→21:23)
[2017-06-28] MEDS: Tamsulosin 0.4mg cap ORAL SCH (11:41)
[2017-06-28] MEDS: Docusate 100mg cap ORAL SCH ×2 (11:41→19:18)
[2017-06-28] MEDS: Carvedilol 12.5mg tab ORAL SCH (11:42)
[2017-06-28] MEDS: Calcium Carbonate 1250mg/5ml Liquid ud ORAL SCH ×3 (11:43→19:18)
[2017-06-28] MEDS: Eliquis 2.5mg tablet ORAL SCH ×2 (11:53→19:18)
[2017-06-28 11:57] VITALS: BP 115/61
[2017-06-28 16:00] VITALS: BP 110/64
--- NOTE | 2017-06-28 18:03 | Consultation ---
DATE OF CONSULTATION: 06/28/2017 INFECTIOUS DISEASE CONSULTATION PRIMARY ATTENDING PHYSICIAN: Jesús Franklin M.D. REASON FOR CONSULT: Urinary tract infection. HISTORY OF PRESENT ILLNESS: The patient is a 76-year-old male, who is a retirement resident, admitted yesterday because of increasing weakness. The patient has a history of frequent urinary tract infection. A recent urine culture in nursing facility positive for E. coli. He had also acute kidney injury and elevation of creatinine. PAST MEDICAL HISTORY: Significant for BPH, history of CVA with weakness in the right arm and hypertension. MEDICATIONS: Atorvastatin, Apixaban, aspirin, calcium carbonate, Plavix, carvedilol, Flomax, hydralazine, oxybutynin, Tylenol, and gets a dose of ceftriaxone in the ER. ALLERGIES: No known drug allergies. SOCIAL HISTORY: Single, retirement resident. No history of alcohol, drug abuse, or smoking. REVIEW OF SYSTEMS: No fever. No chills. No coughing. No any other symptoms. PHYSICAL EXAMINATION: GENERAL APPEARANCE: No acute distress. VITAL SIGNS: Temperature 98.3 degrees, pulse 52, and blood pressure is 115/61. HEAD AND NECK: [place] conjunctiva. HEART: S1 and S2 regular. LUNGS: Clear. ABDOMEN: Soft, nontender. EXTREMITIES: No edema. Weakness in right arm. NEUROLOGIC: Awake, alert, oriented. LABORATORY AND DIAGNOSTIC DATA: WBC 8, hemoglobin 8.5, hematocrit 26.7 and platelet is 326. Sodium 139, potassium 3.7, chloride 104, bicarbonate 28, BUN 14, creatinine 1.1. Creatinine is at the time of admission was 1.4. UA showed WBC of 30 to 40, RBC 10 to 15, leukocyte esterase 3+, nitrite positive. Urine culture is pending. Chest x-ray showed cardiomegaly. IMPRESSION: 1. Pyuria. 2. Urinary tract infection. 3. The patient has a positive urine culture with Escherichia coli in nursing facility. 4. Anemia. 5. Benign prostatic hypertrophy. 6. Hypertension. 7. History of cerebrovascular accident. RECOMMENDATION: We will continue with ceftriaxone. We will follow up the urine culture. At the end of my exam, I thank Dr. Franklin for involving me in the care of this patient. Kale Antony M.D. DR: ANNIE JOB#: [id number] CC:
[2017-06-28] MEDS: cefTRIAXone 1 GM in D5W 55 ML IVPB SCH (19:19)
[2017-06-28 20:00] VITALS: BP 111/52
--- NOTE | 2017-06-28 20:45 | General Progress Note ---
Assessment/Plan Problem List: (1) Acute renal failure ICD Codes: N17.9 - Acute kidney failure, unspecified SNOMED: 98048747 (2) Renal cyst ICD Codes: N28.1 - Cyst of kidney, acquired SNOMED: 275705970 (3) HTN (hypertension) ICD Codes: I10 - Essential (primary) hypertension SNOMED: 17391634 (4) Anemia ICD Codes: D64.9 - Anemia, unspecified SNOMED: 187211954 Qualifiers: Qualified Codes: D64.9 - Anemia, unspecified (5) UTI (urinary tract infection) ICD Codes: N39.0 - Urinary tract infection, site not specified SNOMED: 38998417, 672974594 Qualifiers: Qualified Codes: N39.0 - Urinary tract infection, site not specified Status: progressing Assessment/Plan afebrile arf on top of cri anemia htn uti is improving reviewed chart and labs Subjective ROS Limited/Unobtainable: Yes Allergies: Coded Allergies: No Known Allergies (Unverified , 06/06/17) Objective Last 24 Hour Vital Signs Date Time Temp Pulse Resp B/P (MAP) Pulse Ox O2 Delivery O2 Flow Rate FiO2 06/28/17 20:00 98.1 51 18 111/52 94 06/28/17 16:00 98.1 54 20 110/64 97 06/28/17 13:41 115/61 06/28/17 11:57 98.3 52 20 115/61 97 Room Air 06/28/17 11:42 54 111/55 06/28/17 11:39 111/55 06/28/17 11:39 111/55 06/28/17 08:59 98.3 54 20 111/55 95 Room Air 06/28/17 04:16 97.7 53 19 95/55 94 Room Air 06/28/17 00:36 97.7 65 19 147/66 96 Room Air 06/28/17 00:15 98.1 58 13 121/60 96 Room Air 06/27/17 23:30 58 13 121/60 96 Room Air 06/27/17 22:00 64 16 110/37 98 Room Air Intake and Output 06/27/17 06/28/17 19:00 07:00 Intake Total 50 ml Output Total 150 ml 700 ml Balance -100 ml -700 ml IV Total 50 ml Output Urine Total 150 ml 700 ml Laboratory Tests 06/28/17 05:35: White Blood Count 8.0, Red Blood Count 3.10L, Hemoglobin 8.5L, Hematocrit 26.7L , Mean Corpuscular Volume 86, Mean Corpuscular Hemoglobin 27.4, Mean Corpuscular Hemoglobin Concent 31.8L, Red Cell Distribution Width 13.0, Platelet Count 326, Mean Platelet Volume 5.5L, Neutrophils (%) (Auto) 58.1, Lymphocytes (%) (Auto) 27.5, Monocytes (%) (Auto) 10.1H, Eosinophils (%) (Auto) 3.3H, Basophils (%) (Auto) 1.0, Sodium Level 139, Potassium Level 3.7, Chloride Level 104, Carbon Dioxide Level 28, Anion Gap 7, Blood Urea Nitrogen 14, Creatinine 1.1, Estimat Glomerular Filtration Rate , Glucose Level 117H, Calcium Level 8.8 Height (Feet): 5 Height (Inches): 10.00 Weight (Pounds): 140 Jesús Franklin MD Jun 28, 2017 20:45
[2017-06-29] VITALS: BP 120/70
[2017-06-29 04:00] VITALS: BP 116/75
[2017-06-29] MEDS: Oxybutynin 5mg tab ORAL SCH ×3 (06:44→20:40)
[2017-06-29] MEDS: HydrALAZINE 25mg tab ORAL SCH ×3 (06:44→20:39)
[2017-06-29 08:13] VITALS: BP 119/59
[2017-06-29] MEDS: Carvedilol 12.5mg tab ORAL SCH (09:00)
[2017-06-29] MEDS: Calcium Carbonate 1250mg/5ml Liquid ud ORAL SCH ×3 (09:01→17:51)
[2017-06-29] MEDS: Docusate 100mg cap ORAL SCH ×2 (09:01→17:52)
[2017-06-29] MEDS: Tamsulosin 0.4mg cap ORAL SCH (09:02)
[2017-06-29] MEDS: Eliquis 2.5mg tablet ORAL SCH ×2 (09:02→17:52)
[2017-06-29 11:52] VITALS: BP 107/62
--- NOTE | 2017-06-29 12:16 | Infectious Diseases Prog Note ---
Assessment/Plan Assessment/Plan A; UTI BPH HPN History of CVA P; Continue Rocephin will f/u cultures Subjective ROS Limited/Unobtainable: No Constitutional: Reports: no symptoms Respiratory: Reports: no symptoms Cardiovascular: Reports: no symptoms Gastrointestinal/Abdominal: Reports: no symptoms Neurologic: Reports: no symptoms Allergies: Coded Allergies: No Known Allergies (Unverified , 06/06/17) Objective Vital Signs Last 24 Hour Vital Signs Date Time Temp Pulse Resp B/P (MAP) Pulse Ox O2 Delivery O2 Flow Rate FiO2 06/29/17 11:52 97.9 61 20 107/62 99 Room Air 06/29/17 09:00 52 119/59 06/29/17 08:13 98.0 52 20 119/59 97 Room Air 06/29/17 06:44 116/75 06/29/17 04:00 98.2 72 18 116/75 95 06/29/17 00:00 Room Air 06/29/17 00:00 98.2 60 17 120/70 96 06/28/17 21:23 111/52 06/28/17 20:00 Room Air 06/28/17 20:00 98.1 51 18 111/52 94 06/28/17 16:00 98.1 54 20 110/64 97 06/28/17 13:41 115/61 Height (Feet): 5 Height (Inches): 10.00 Weight (Pounds): 140 General Appearance: no acute distress HEENT: mucous membranes moist Respiratory/Chest: lungs clear Cardiovascular: normal rate Abdomen: soft, non tender Genitourinary: other - Garcia catheter Extremities: no edema Neurologic/Psychiatric: alert, responsive Microbiology Date/Time Source Procedure Growth Status 06/27/17 17:25 Blood Blood Culture - Preliminary NO GROWTH AFTER 24 HOURS Resulted 06/27/17 17:25 Blood Blood Culture - Preliminary NO GROWTH AFTER 24 HOURS Resulted 06/27/17 17:25 Urine,Clean Catch Urine Culture - Preliminary Gram Negative Bacillus 1 Resulted Current Medications Medications (Trade) Dose Ordered Sig/Maureen Route PRN Reason Start Time Stop Time Status Last Admin Dose Admin Acetaminophen (Tylenol) 325 mg Q4HR ORAL 06/28/17 21:30 07/28/17 21:29 06/29/17 09:02 Apixaban (Eliquis) 5 mg BID ORAL 06/28/17 09:00 07/28/17 08:59 06/29/17 09:02 Aspirin (ASA) 325 mg DAILY ORAL 06/28/17 09:00 07/28/17 08:59 06/29/17 09:01 Atorvastatin Calcium (Lipitor) 40 mg BEDTIME ORAL 06/28/17 21:00 07/28/17 20:59 06/28/17 21:24 Calcium Carbonate (Os-Sushant) 650 mg TID ORAL 06/28/17 09:00 07/28/17 08:59 06/29/17 09:01 Carvedilol (Coreg) 12.5 mg DAILY ORAL 06/28/17 09:00 07/28/17 08:59 06/28/17 11:42 Ceftriaxone Sodium 1 gm/ Dextrose 55 ml @ 110 mls/hr Q24H IVPB 06/28/17 18:00 07/05/17 17:59 06/28/17 19:19 Clopidogrel Bisulfate (Plavix) 75 mg DAILY ORAL 06/28/17 09:00 07/28/17 08:59 06/29/17 09:01 Docusate Sodium (Colace) 100 mg BID ORAL 06/28/17 09:00 07/28/17 08:59 06/29/17 09:01 Hydralazine HCl (Apresoline) 25 mg Q8HR ORAL 06/28/17 09:00 07/28/17 08:59 06/29/17 06:44 Ondansetron HCl (Zofran ODT) 4 mg Q8HR ORAL 06/27/17 22:00 07/27/17 21:59 06/29/17 06:44 Oxybutynin Chloride (Ditropan) 5 mg Q8HR ORAL 06/28/17 09:00 07/28/17 08:59 06/29/17 06:44 Tamsulosin HCl (Flomax) 0.4 mg DAILY ORAL 06/28/17 09:00 07/28/17 08:59 06/29/17 09:02 MADELINE AUGUSTIN Jun 29, 2017 12:16
[2017-06-29 16:00] VITALS: BP 106/64
[2017-06-29] MEDS: cefTRIAXone 1 GM in D5W 55 ML IVPB SCH (17:52)
--- NOTE | 2017-06-29 19:52 | General Progress Note ---
Assessment/Plan Problem List: (1) Acute renal failure ICD Codes: N17.9 - Acute kidney failure, unspecified SNOMED: 72704915 (2) Renal cyst ICD Codes: N28.1 - Cyst of kidney, acquired SNOMED: 202563426 (3) HTN (hypertension) ICD Codes: I10 - Essential (primary) hypertension SNOMED: 73387584 (4) Anemia ICD Codes: D64.9 - Anemia, unspecified SNOMED: 963003745 Qualifiers: Qualified Codes: D64.9 - Anemia, unspecified (5) UTI (urinary tract infection) ICD Codes: N39.0 - Urinary tract infection, site not specified SNOMED: 93285966, 107434200 Qualifiers: Qualified Codes: N39.0 - Urinary tract infection, site not specified Assessment/Plan afebrile arf on top of cri resolved anemiais persistenly low discussed w heme/onc te treating low hb htn uti is improving reviewed chart and labs Subjective ROS Limited/Unobtainable: Yes Allergies: Coded Allergies: No Known Allergies (Unverified , 06/06/17) Objective Last 24 Hour Vital Signs Date Time Temp Pulse Resp B/P (MAP) Pulse Ox O2 Delivery O2 Flow Rate FiO2 06/29/17 16:00 97.6 52 19 106/64 97 Room Air 06/29/17 13:58 107/62 06/29/17 11:52 97.9 61 20 107/62 99 Room Air 06/29/17 09:00 52 119/59 06/29/17 08:13 98.0 52 20 119/59 97 Room Air 06/29/17 06:44 116/75 06/29/17 04:00 98.2 72 18 116/75 95 06/29/17 00:00 Room Air 06/29/17 00:00 98.2 60 17 120/70 96 06/28/17 21:23 111/52 06/28/17 20:00 Room Air 06/28/17 20:00 98.1 51 18 111/52 94 Intake and Output 06/28/17 06/29/17 19:00 07:00 Intake Total 720 ml 535 ml Output Total 1200 ml Balance 720 ml -665 ml Intake Oral 720 ml 480 ml IV Total 55 ml Output Urine Total 1200 ml Height (Feet): 5 Height (Inches): 10.00 Weight (Pounds): 140 Cardiovascular: normal rate Respiratory/Chest: lungs clear Jesús Franklin MD Jun 29, 2017 19:52
[2017-06-29 20:00] VITALS: BP 114/53
[2017-06-29 20:59] LABS: FERRITIN 572 NG/ML (8-388); LACTATE DEHYDROGENASE 217 U/L (81-234)
[2017-06-29 21:13] LABS: % IRON SATURATION 22 % (15-50); IRON 43 ug/dL (50-175); TOTAL IRON BINDING CAPACITY 193 ug/dL (250-450)
[2017-06-30] VITALS (7 sets, daily range): BP systolic 109–136; BP diastolic 47–75
[2017-06-30] MEDS: HydrALAZINE 25mg tab ORAL SCH ×3 (05:43→20:48)
[2017-06-30] MEDS: Oxybutynin 5mg tab ORAL SCH ×3 (05:46→20:48)
[2017-06-30] MEDS: Carvedilol 12.5mg tab ORAL SCH ×2 (09:00→09:57)
[2017-06-30] MEDS: Tamsulosin 0.4mg cap ORAL SCH (09:56)
[2017-06-30] MEDS: Docusate 100mg cap ORAL SCH ×2 (09:56→17:39)
[2017-06-30] MEDS: Calcium Carbonate 1250mg/5ml Liquid ud ORAL SCH ×3 (09:56→17:39)
[2017-06-30] MEDS: Eliquis 2.5mg tablet ORAL SCH ×2 (09:56→17:39)
--- NOTE | 2017-06-30 10:52 | Infectious Diseases Prog Note ---
Assessment/Plan Assessment/Plan A; E. coli UTI BPH HPN History of CVA P; Continue Rocephin at time of discharge PO Keflex Subjective ROS Limited/Unobtainable: No Constitutional: Reports: no symptoms Respiratory: Reports: no symptoms Cardiovascular: Reports: no symptoms Gastrointestinal/Abdominal: Reports: no symptoms Genitourinary: Reports: no symptoms Allergies: Coded Allergies: No Known Allergies (Unverified , 06/06/17) Objective Vital Signs Last 24 Hour Vital Signs Date Time Temp Pulse Resp B/P (MAP) Pulse Ox O2 Delivery O2 Flow Rate FiO2 06/30/17 10:01 54 121/65 06/30/17 09:00 54 121/65 06/30/17 05:43 111/47 06/30/17 04:30 56 06/30/17 04:00 97.8 54 21 109/47 95 Room Air 06/30/17 04:00 95 Room Air 06/30/17 00:00 98.1 50 18 136/69 95 06/30/17 00:00 95 Room Air 06/29/17 20:39 114/53 06/29/17 20:00 97.8 64 18 114/53 98 06/29/17 20:00 98 Room Air 06/29/17 16:00 97.6 52 19 106/64 97 Room Air 06/29/17 13:58 107/62 06/29/17 11:52 97.9 61 20 107/62 99 Room Air Height (Feet): 5 Height (Inches): 10.00 Weight (Pounds): 140 General Appearance: no acute distress HEENT: mucous membranes moist Respiratory/Chest: lungs clear Cardiovascular: normal rate Abdomen: soft, non tender Genitourinary: other - Garcia catheter Extremities: no edema Microbiology Date/Time Source Procedure Growth Status 06/27/17 17:25 Blood Blood Culture - Preliminary NO GROWTH AFTER 48 HOURS Resulted 06/27/17 17:25 Blood Blood Culture - Preliminary NO GROWTH AFTER 48 HOURS Resulted 06/27/17 17:25 Urine,Clean Catch Urine Culture - Final Escherichia Coli Complete 06/27/17 22:30 Rectum VRE Culture - Final NO VANCOMYCIN RESISTANT ENTEROCOCCUS ... Complete Laboratory Tests Test 06/29/17 20:00 06/29/17 21:10 Reticulocyte Count 0.4 % (0.0-2.0) Fibrinogen 576 mg/dL (200-400) H Uric Acid 4.5 MG/DL (2.6-7.2) Iron Level 43 ug/dL (50-175) L Total Iron Binding Capacity 193 ug/dL (250-450) L Percent Iron Saturation 22 % (15-50) Unsaturated Iron Binding 150 ug/dL (112-346) Ferritin 572 NG/ML (8-388) H Lactate Dehydrogenase 217 U/L (81-234) Vitamin B12 Level 688 PG/ML (193-986) Folate 11.7 NG/ML (8.6-58.9) Thyroid Stimulating Hormone (TSH) 1.981 uiU/mL (0.358-3.740) Hemoglobin A Pending Hemoglobin A2 Pending Hemoglobin C Pending Hemoglobin F () Pending Hemoglobin S Pending Variant Hemoglobin Pending Hemoglobin Electrophoresis Interp Pending Hemoglobin Interpretation Pending Hemoglobin Solubility Pending Soluble Transferrin Receptor Pending Current Medications Medications (Trade) Dose Ordered Sig/Maureen Route PRN Reason Start Time Stop Time Status Last Admin Dose Admin Acetaminophen (Tylenol) 650 mg Q4H PRN ORAL Mild Pain/Temp > 100.5 06/30/17 09:30 07/30/17 09:29 Apixaban (Eliquis) 5 mg BID ORAL 06/28/17 09:00 07/28/17 08:59 06/30/17 09:56 Aspirin (ASA) 325 mg DAILY ORAL 06/28/17 09:00 07/28/17 08:59 06/30/17 09:56 Atorvastatin Calcium (Lipitor) 40 mg BEDTIME ORAL 06/28/17 21:00 07/28/17 20:59 06/29/17 20:39 Calcium Carbonate (Os-Sushant) 650 mg TID ORAL 06/28/17 09:00 07/28/17 08:59 06/30/17 09:56 Carvedilol (Coreg) 12.5 mg DAILY ORAL 06/28/17 09:00 07/28/17 08:59 06/28/17 11:42 Ceftriaxone Sodium 1 gm/ Dextrose 55 ml @ 110 mls/hr Q24H IVPB 06/28/17 18:00 07/05/17 17:59 06/29/17 17:52 Clopidogrel Bisulfate (Plavix) 75 mg DAILY ORAL 06/28/17 09:00 07/28/17 08:59 06/30/17 09:56 Docusate Sodium (Colace) 100 mg BID ORAL 06/28/17 09:00 07/28/17 08:59 06/30/17 09:56 Hydralazine HCl (Apresoline) 25 mg Q8HR ORAL 06/28/17 09:00 07/28/17 08:59 06/29/17 06:44 Ondansetron HCl (Zofran ODT) 4 mg Q8HR ORAL 06/27/17 22:00 07/27/17 21:59 06/29/17 13:50 Oxybutynin Chloride (Ditropan) 5 mg Q8HR ORAL 06/28/17 09:00 07/28/17 08:59 06/30/17 05:46 Tamsulosin HCl (Flomax) 0.4 mg DAILY ORAL 06/28/17 09:00 07/28/17 08:59 06/30/17 09:56 MADELINE AUGUSTIN Jun 30, 2017 10:52
--- NOTE | 2017-06-30 15:05 | Cardiology Report ---
APPROVED REPORT EKG Measurement Heart [id number] Sinus bradycardia Otherwise normal ECG
[2017-06-30] MEDS: cefTRIAXone 1 GM in D5W 55 ML IVPB SCH (17:39)
--- NOTE | 2017-06-30 21:03 | General Progress Note ---
Assessment/Plan Problem List: (1) Acute renal failure ICD Codes: N17.9 - Acute kidney failure, unspecified SNOMED: 52712358 (2) Renal cyst ICD Codes: N28.1 - Cyst of kidney, acquired SNOMED: 211103021 (3) HTN (hypertension) ICD Codes: I10 - Essential (primary) hypertension SNOMED: 99014147 (4) Anemia ICD Codes: D64.9 - Anemia, unspecified SNOMED: 831786978 Qualifiers: Qualified Codes: D64.9 - Anemia, unspecified (5) UTI (urinary tract infection) ICD Codes: N39.0 - Urinary tract infection, site not specified SNOMED: 60245759, 505977531 Qualifiers: Qualified Codes: N39.0 - Urinary tract infection, site not specified Status: progressing Assessment/Plan azotemia is improving discussed w heme/onc te treating low hb htn dc in am to snf Subjective ROS Limited/Unobtainable: Yes Allergies: Coded Allergies: No Known Allergies (Unverified , 06/06/17) Objective Last 24 Hour Vital Signs Date Time Temp Pulse Resp B/P (MAP) Pulse Ox O2 Delivery O2 Flow Rate FiO2 06/30/17 20:48 126/67 06/30/17 20:00 97.3 60 20 126/63 97 06/30/17 16:04 97.9 51 19 126/67 97 Room Air 51 06/30/17 14:20 130/64 06/30/17 12:00 98.9 53 18 130/60 97 06/30/17 10:01 54 121/65 06/30/17 09:00 54 121/65 06/30/17 08:00 99.3 56 120/65 96 Room Air 06/30/17 05:43 111/47 06/30/17 04:30 56 06/30/17 04:00 97.8 54 21 109/47 95 Room Air 06/30/17 04:00 95 Room Air 06/30/17 00:00 98.1 50 18 136/69 95 06/30/17 00:00 95 Room Air Intake and Output 06/29/17 06/30/17 19:00 07:00 Intake Total 720 ml 305 ml Output Total 2450 ml Balance 720 ml -2145 ml Intake Oral 720 ml IV Total 55 ml Blood Product 250 ml Output Urine Total 2450 ml Stool Total 0 ml Laboratory Tests 06/29/17 21:10: Hemoglobin A [Pending], Hemoglobin A2 [Pending], Hemoglobin C [Pending], Hemoglobin F () [Pending], Hemoglobin S [Pending], Variant Hemoglobin [ Pending], Hemoglobin Electrophoresis Interp [Pending], Hemoglobin Interpretation [Pending], Hemoglobin Solubility [Pending], Soluble Transferrin Receptor [Pending] Height (Feet): 5 Height (Inches): 10.00 Weight (Pounds): 140 Cardiovascular: normal rate Jesús Franklin MD Jun 30, 2017 21:02
[2017-07-01] VITALS: BP 133/71
[2017-07-01 04:00] VITALS: BP 157/71
[2017-07-01] MEDS: Oxybutynin 5mg tab ORAL SCH (05:52)
[2017-07-01] MEDS: HydrALAZINE 25mg tab ORAL SCH (05:52)
[2017-07-01] MEDS: Calcium Carbonate 1250mg/5ml Liquid ud ORAL SCH (08:39)
[2017-07-01] MEDS: Docusate 100mg cap ORAL SCH (08:39)
[2017-07-01] MEDS: Carvedilol 12.5mg tab ORAL SCH (08:39)
[2017-07-01] MEDS: Tamsulosin 0.4mg cap ORAL SCH (08:39)
[2017-07-01] MEDS: Eliquis 2.5mg tablet ORAL SCH (08:40)
[2017-07-01] MEDS ORDERED: CEPHALEXIN500 MG ORAL (08:50)
[2017-07-01 09:00] VITALS: BP 126/67
[2017-07-01] MEDS ORDERED: Tubing IV Secondary IV ONE (11:43)
[2017-07-01] MEDS ORDERED: NS 500ML ONE (11:43)
--- NOTE | 2017-07-02 12:36 | General Progress Note ---
Assessment/Plan Assessment/Plan # Anemia of chronic disease --> workup reviewed, iron is elevated as is ferritin --> consider ransfuse if hgb <7 # Anemia of kidney diseaes --> cr is better at this time, hold off on epogen # DVT of the right leg- -> consider use of apixaban, if anemia worse consider filter ivc in future # E. coli UTI # BPH # HTN # History of CVA Subjective Constitutional: Denies: no symptoms, chills, diaphoresis, fever, malaise, weakness, other HEENT: Denies: no symptoms, eye pain, blurred vision, tearing, double vision, ear pain, ear discharge, nose pain, nose congestion, throat pain, throat swelling, mouth pain, mouth swelling, other Cardiovascular: Denies: no symptoms, chest pain, edema, irregular heart rate, lightheadedness, palpitations, syncope, other Respiratory: Denies: no symptoms, cough, orthopnea, shortness of breath, SOB with excertion, SOB at rest, sputum, stridor, wheezing, other Gastrointestinal/Abdominal: Denies: no symptoms, abdomen distended, abdominal pain, black stools, tarry stools, blood in stool, constipated, diarrhea, difficulty swallowing, nausea, poor appetite, poor fluid intake, rectal bleeding , vomiting, other Genitourinary: Denies: no symptoms, burning, discharge, frequency, flank pain, hematuria, incontinence, pain, urgency, other Neurologic/Psychiatric: Denies: no symptoms, anxiety, depressed, emotional problems, headache, numbness, paresthesia, pre-existing deficit, seizure, tingling, tremors, weakness, other Endocrine: Denies: no symptoms, excessive sweating, flushing, intolerance to cold, intolerance to heat, increased hunger, increased thirst, increased urine, unexplained weight gain, unexplained weight loss, other Hematologic/Lymphatic: Reports: anemia Allergies: Coded Allergies: No Known Allergies (Unverified , 06/06/17) Subjective nad, no events ovrnight Objective Intake and Output 07/01/17 07/02/17 19:00 07:00 Intake Total 240 ml Output Total 400 ml Balance -160 ml Intake Oral 240 ml Output Urine Total 400 ml # Voids 1 Height (Feet): 5 Height (Inches): 10.00 Weight (Pounds): 140 General Appearance: alert EENT: normal ENT inspection Neck: supple Cardiovascular: regular rhythm Respiratory/Chest: normal breath sounds Abdomen: non tender Extremities: non-tender Edema: no edema noted Leg (L), no edema noted Leg (R), no edema noted Pedal (L) , no edema noted Pedal (R) Edema: mild edema Neurologic: oriented x 3 Skin: warm/dry Yossi More Jul 02, 2017 12:35
--- NOTE | 2017-07-04 00:51 | General Progress Note ---
Assessment/Plan Status: stable Assessment/Plan # Anemia of chronic disease --> workup reviewed, iron is elevated as is ferritin --> consider transfuse if hgb <7 or symptomatic --> Has been stable # Anemia of kidney disease --> cr is better at this time, hold off on epogen --> Monitor cbc daily # DVT of the right leg- -> consider use of apixaban, if anemia worse consider filter ivc in future # E. coli UTI # BPH # HTN # History of CVA Subjective Date patient seen: Jun 30, 2017 Cardiovascular: Denies: no symptoms, chest pain, edema, irregular heart rate, lightheadedness, palpitations, syncope, other Respiratory: Denies: no symptoms, cough, orthopnea, shortness of breath, SOB with excertion, SOB at rest, sputum, stridor, wheezing, other Gastrointestinal/Abdominal: Denies: no symptoms, abdomen distended, abdominal pain, black stools, tarry stools, blood in stool, constipated, diarrhea, difficulty swallowing, nausea, poor appetite, poor fluid intake, rectal bleeding , vomiting, other Genitourinary: Denies: no symptoms, burning, discharge, frequency, flank pain, hematuria, incontinence, pain, urgency, other Allergies: Coded Allergies: No Known Allergies (Unverified , 06/06/17) Subjective Vitals are stable. No fever or chills. Objective VS - Last 72 Hours, by Label Date Time Temp Pulse Resp B/P (MAP) Pulse Ox O2 Delivery O2 Flow Rate FiO2 07/01/17 09:00 97.6 77 19 126/67 97 07/01/17 08:39 77 137/67 07/01/17 05:52 157/71 07/01/17 04:00 98.1 58 20 157/71 98 Height (Feet): 5 Height (Inches): 10.00 Weight (Pounds): 140 General Appearance: no apparent distress EENT: normal ENT inspection Neck: normal alignment Cardiovascular: normal rate, regular rhythm Respiratory/Chest: lungs clear, normal breath sounds Skin: warm/dry Yossi More Jul 04, 2017 00:51
--- NOTE | 2017-07-04 02:00 | General Progress Note ---
Assessment/Plan Assessment/Plan # Anemia of chronic disease --> workup reviewed, iron is elevated as is ferritin --> consider transfuse if hgb <7 or symptomatic --> Has been stable # Anemia of kidney disease --> cr is better at this time, hold off on epogen --> Monitor cbc daily # DVT of the right leg- -> consider use of apixaban, if anemia worse consider filter ivc in future # E. coli UTI # BPH # HTN # History of CVA Subjective Date patient seen: Jun 29, 2017 Constitutional: Denies: no symptoms, chills, diaphoresis, fever, malaise, weakness, other HEENT: Denies: no symptoms, eye pain, blurred vision, tearing, double vision, ear pain, ear discharge, nose pain, nose congestion, throat pain, throat swelling, mouth pain, mouth swelling, other Cardiovascular: Denies: no symptoms, chest pain, edema, irregular heart rate, lightheadedness, palpitations, syncope, other Respiratory: Denies: no symptoms, cough, orthopnea, shortness of breath, SOB with excertion, SOB at rest, sputum, stridor, wheezing, other Gastrointestinal/Abdominal: Denies: no symptoms, abdomen distended, abdominal pain, black stools, tarry stools, blood in stool, constipated, diarrhea, difficulty swallowing, nausea, poor appetite, poor fluid intake, rectal bleeding , vomiting, other Genitourinary: Denies: no symptoms, burning, discharge, frequency, flank pain, hematuria, incontinence, pain, urgency, other Allergies: Coded Allergies: No Known Allergies (Unverified , 06/06/17) Subjective NAD. No new events overnight. Objective Height (Feet): 5 Height (Inches): 10.00 Weight (Pounds): 140 General Appearance: no apparent distress Yossi More Jul 04, 2017 02:00
--- NOTE | 2017-07-04 07:41 | Discharge Summary ---
Discharge Summary Hospital Course Date of Admission Jun 27, 2017 at 19:41 Date of Discharge Jul 01, 2017 at 11:44 Admitting Diagnosis UTI, ACUTE RENAL FAILURE, ANEMIA HPI Cade Benites Jr is a 76 year old male who was admitted on Jun 27, 2017 at 19: 41 for Urinary Tract Infection, Acute Renal Failure Hospital Course dc summary #[id number] Discharge Medications Continued Medications: Acetaminophen* (Acetaminophen 325MG Tablet*) 325 Mg Tablet 650 MG ORAL Q4H PRN for For Pain, TAB Apixaban (Eliquis) 5 Mg Tablet 5 MG PO BID, TAB Aspirin* (Aspirin*) 325 Mg Tablet 325 MG ORAL DAILY, TAB Atorvastatin Calcium* (Atorvastatin Calcium*) 40 Mg Tablet 40 MG ORAL BEDTIME, TAB Carvedilol (Coreg) 3.125 Mg Tablet 3.125 MG ORAL DAILY, TAB Cephalexin* (Keflex*) 500 Mg Capsule 500 MG ORAL EVERY 8 HOURS for 5 Days, #14 CAP 0 Refills Clopidogrel Bisulfate* (Plavix*) 75 Mg Tablet 75 MG ORAL DAILY, TAB Docusate Sodium* (Colace*) 100 Mg Capsule 100 MG ORAL DAILY, CAP Furosemide* (Lasix*) 20 Mg Tablet 20 MG ORAL DAILY, TAB Hydralazine Hcl* (Hydralazine Hcl*) 25 Mg Tablet 25 MG ORAL EVERY 8 HOURS, TAB 0 Refills hold if sbp<110 and hr <60 Lisinopril* (Lisinopril*) 10 Mg Tablet 10 MG ORAL DAILY, TAB Multivitamins* (Multivitamins*) 1 Each Tablet 1 TAB ORAL DAILY, TAB 0 Refills Ondansetron* (Zofran*) 4 Mg Tablet 4 MG ORAL Q6H PRN for Nausea & Vomiting, TAB Oxybutynin Chloride (Oxybutynin Chloride) 5 Gm Powder 5 GM MC EVERY 8 HOURS, GM Pantoprazole* (Pantoprazole*) 40 Mg Tablet.dr 40 MG ORAL DAILY, TAB Tamsulosin Hcl (Tamsulosin Hcl*) 0.4 Mg Cap.er.24h 0.4 MG ORAL BEDTIME, CAP Discharge Condition Upon Discharge: stable Discharge Disposition Patient was discharged to SNF/Subacute Facility(03) Discharge Diagnoses: Discharge Instructions Discharge Instructions Special Instructions I have been assigned to complete a D/C Summary on this account. I was not involved in the patient management Chika Serrato NP (Vanchtein) Jul 04, 2017 07:40
--- NOTE | 2017-07-05 00:45 | Discharge Summary 2 SIG ---
DATE OF ADMISSION: 06/27/2017 DATE OF DISCHARGE: 07/01/2017 REASON FOR ADMISSION: 76-year-old male resident of assisted facility with past medical history significant for CVA, hypertension, BPH, recurrent UTI, was sent from the assisted [facility] for evaluation due to increased weakness for the last few days. There was no fever, no chills, no chest pain, no shortness of breath, no nausea, and no vomiting. Workup in the emergency room revealed urinalysis grossly positive for UTI. Creatinine -1.4. Hemoglobin -8.8 and hematocrit -28.0. No leukocytosis. Lactic acid within normal limits. EKG showed normal sinus rhythm, no acute ischemic changes. Chest x-ray revealed no acute process, but showed cardiomegaly. The patient admitted with diagnosis of UTI, renal insufficiency, anemia, and altered mental status. HOSPITAL COURSE: The patient admitted. The patient started on the IV fluids and IV antibiotics. ID consult requested. Urine culture positive for E coli. Blood culture negative. While in the hospital, the patient was on the IV antibiotics, which were changed to oral upon discharge. Renal parameters and electrolytes were closely monitored. Electrolytes corrected as needed. Nephrotoxics were avoided. Creatinine down to 1.1 prior to discharge. Renal insufficiency was likely secondary to dehydration and resolved with intravenous hydration. The patient was anemic and required blood transfusion. The patient transfused with one unit of packed red blood cells. Hematology consult was requested. Per exterior designer, the patient needs close monitoring of hemoglobin and hematocrit. Anemia workup was consistent with anemia of chronic kidney disease. Initially, the patient was on Epogen. After hemoglobin and hematocrit stabilized, Epogen was stopped. Ruby Rails Developer recommended in future to consider transfusion if hemoglobin fell below 7 or the patient symptomatic. Venous duplex of bilateral lower extremities demonstrated acute DVT of the right lower extremity, common femoral and proximal superficial femoral veins. For acute DVT, exterior designer recommended apixaban. The patient subsequently started on Eliquis. Ruby Rails Developer advised to closely monitor renal parameters and monitor for any signs of bleeding. Ruby Rails Developer suggested if anemia gets worse, consider IVC filter in future. The patient was stable for discharge back to [facility] on oral antibiotic and anticoagulation for acute DVT. FINAL DIAGNOSES: 1. Escherichia coli urinary tract infection. 2. Anemia of chronic kidney disease. 3. Renal insufficiency likely secondary to dehydration, resolved. 4. Acute deep venous thrombosis, right lower extremity. 5. Altered mental status, possibly secondary to urinary tract infection, resolved. 6. Benign prostatic hypertrophy. 7. Hypertension. 8. History of cerebrovascular accident. DISCHARGE MEDICATIONS: See medication reconciliation list. DISCHARGE INSTRUCTIONS: The patient discharged to assisted facility. FOLLOWUP: Follow up with the medical doctor at the facility. Jesús Franklin M.D. I have been assigned to dictate discharge summary on this account and I was not involved in the patient's management. Chika VannBurke Rehabilitation HospitalMatthew N.PReji DR: DESI JOB#: [id number] CC: DONELL
== END 2017-07-01 11:44 | DRG 463 ==
LOC: EDBD 16:59 → EMR 17:30 → 4E 19:41 → EDBEDREQ 22:09
PROC: 30233N1 Transfusion of Nonautologous Red Blood Cells into Peripheral Vein, Percutaneous Approach (ICD-10-PCS; principal; 2017-06-29)
DX: N39.0 Urinary tract infection, site not specified (principal); N17.9 Acute kidney failure, unspecified; I82.401 Acute embolism and thrombosis of unspecified deep veins of right lower extremity; D63.1 Anemia in chronic kidney disease; B96.20 Unspecified Escherichia coli [E. coli] as the cause of diseases classified elsewhere; R41.82 Altered mental status, unspecified; R33.8 Other retention of urine; I10 Essential (primary) hypertension; Z86.73 Personal history of transient ischemic attack (TIA), and cerebral infarction without residual deficits; N40.0 Benign prostatic hyperplasia without lower urinary tract symptoms
CPT/HCPCS: 36415; 71045; 80048; 80053; 81003; 82607; 82728; 82746; 83020; 83540; 83550; 83605; 83615; 83880; 84238; 84443; 84550; 85025; 85044; 85384; 86850; 86900; 86901; 86920; 87040; 87081; 87086; 87181; 93005; 93970; 99285